=== PATIENT | female | born 1970 | race African-American/Black ===

== ENCOUNTER 2020-01-10 11:43 | Inpatient (IN) | payer OTHER, SELFPAY ==
[2020-01-10] VITALS (8 sets, daily range): BP systolic 137–177; BP diastolic 68–115; PULSE 91–101; RESP 20–26; TEMP 35.7–36.9; O2SAT 91–96; BMI 50.8
--- NOTE | ~2020-01-10 | US_ITS ---
EXAMINATION: US venous doppler LE EXAM DATE: 01/10/2020 14:20 INDICATION: Bilateral leg pain, swelling, elevated d-dimer. TECHNIQUE: Multiple grayscale, color flow and Doppler images of the lower extremity deep venous syste ms bilaterally were obtained and reviewed. Comparison is made to prior examination from 10/27/2018. FINDINGS: Right side: The right common femoral, femoral and profunda veins demonstrate normal color flow, respi ratory variation, augmentation and compressibility. Compressibility, color flow confirmed within the right popliteal, posterior tibial, peroneal, and greater saphenous veins. Left side: The left common femoral, femoral and profunda veins demonstrate normal color flow, respira tory variation, augmentation and compressibility. Compressibility, color flow confirmed within the l eft popliteal, posterior tibial, peroneal, and greater saphenous veins. IMPRESSION: 1. No lower extremity deep venous thrombosis bilaterally. Reviewed, dictated and finalized at location B.
--- NOTE | ~2020-01-10 | XR_ITS ---
EXAMINATION: XR chest 2V EXAM DATE: 01/10/2020 12:08 INDICATION: Shortness of breath, lower extremity edema. TECHNIQUE: Frontal and lateral projections of the chest obtained and reviewed. Comparison is made to prior examination from 09/23/2013. FINDINGS: Interval development of cardiomegaly, pulmonary vascular congestion. There may also be mil d pulmonary edema. No confluent consolidation, pneumothorax or pleural effusion suspected. There are no osseous abnormalities identified. IMPRESSION: Findings consistent with mild CHF exacerbation. Reviewed, dictated and finalized at location B.
--- NOTE | ~2020-01-10 | XR_ITS ---
EXAMINATION: XR chest 1V portable DATE: 01/14/2020 07:37 INDICATION: Congestive heart failure. Shortness of breath. TECHNIQUE: frontal view of the chest was obtained. COMPARISON: Chest radiograph and CT dated 01/10/2020 FINDINGS: Evaluation of fine pulmonary parenchymal detail particularly in the lower lung zones is limited by po rtable technique and patient body habitus. No focal airspace opacities, pulmonary edema, pleural effu camila or pneumothorax. Cardiomegaly. IMPRESSION: 1. No acute cardiopulmonary disease. Reviewed, dictated and finalized at location A.
--- NOTE | ~2020-01-10 | CT_ITS ---
EXAMINATION: CTA chest PE protocol EXAM DATE: 01/10/2020 13:52 INDICATION: Shortness of breath with elevated d-dimer. TECHNIQUE: Spiral CTA of the chest (pulmonary arteries) was performed with 100 cc Omnipaque 350 intr avenous contrast injection. Images were acquired during the pulmonary arterial phase. Coronal maxi mum intensity projection 3D-reconstructions were created by the technologist on dedicated workstation . Axial, coronal and sagittal reformatted images were reviewed. The dose-length product (DLP) for t his examination was 954.57 mGy-cm. The exposure was tailored according to patient size (auto mA exp osure control), and iterative reconstruction (ASIR) was used as additional dose reduction technique. Comparison is made to prior examination from 09/23/2013. FINDINGS: There are no pulmonary emboli in the 1st through 3rd order (central and interlobar) pulmon cb arteries. Some loss of attenuation in the segmental pulmonary arteries due to respiratory motion , but no intraluminal filling defects suspected. No thoracic aortic dissection. The lungs are jonathon r. There are no pleural or pericardial effusions. Tracheobronchial tree is patent. There is no mediastinal, hilar or axillary lymphadenopathy. There is no pneumothorax. Cardiomegaly. There is pulmonary vascular congestion. The main, central pulmonary arteries are dilated which can indicate elevated pulmonary arterial pressure, pulmonary arterial hypertension. No evidence of coronary arter ial calcification. Bilateral adrenal adenomas incompletely imaged. There is mild thoracic spondylos is without osteoblastic or osteolytic lesions identified. IMPRESSION: 1. Cardiomegaly, pulmonary vascular congestion. 2. No pulmonary emboli. Reviewed, dictated and finalized at location B.
--- NOTE | 2020-01-10 11:55 | ECG_ITS ---
Measurements Intervals [place] Rate: 96 P: 55 UT: 148 QRS: 121 QRSD: 89 T: 35 QT: 346 QTc: 438 Interpretive Statements SINUS RHYTHM RIGHT AXIS DEVIATION LEFT ATRIAL ENLARGEMENT CANNOT RULE OUT SEPTAL INFARCT, AGE INDETERMINATE BASELINE WANDER- I, II, AVR, AVL, AVF, V3-V6 ABNORMAL ECG Electronically Signed On 01-10-2020 13:31:56 CDT by Nicho Mccartney D.O.
--- NOTE | 2020-01-10 12:03 | PC.NURSE ---
patient to xray prior to blood being drawn
[2020-01-10 12:28] LABS: Basophils Percent Auto 0.3 % (0.2-1.2); Eosinophils Percent Auto 0.3 % (0-4.4); Hematocrit 53.6 % (37.0-47.0); Hemoglobin 16.7 g/dL (12.0-15.0); Immature Granulocyte Absolute 0.02 K/mm3 (0.00-0.031); Immature Granulocyte Percent A 0.3 % (0-0.5); Lymphocytes Absolute Auto 1.86 K/mm3 (0.9-3.2); Mean Corpuscular HGB Conc 31.2 g/dl (32-36); Mean Corpuscular Hemoglobin 28.9 pg (26-34); Mean Corpuscular Volume 92.9 fl (80-100); Mean Platelet Volume 9.9 fl (7.4-10.4); Monocytes Absolute Auto 0.4 K/mm3 (0.1-0.6); Monocytes Percent Auto 6.7 % (2.6-8.5); Neutrophils Absolute Auto 4.1 K/mm3 (1.3-6.7); Neutrophils Percent Auto 63.4 % (45.5-73.1); Nucleated Red Blood Cells Absolute Auto 0.1 K/mm3 (0.0-0.012); Nucleated Red Blood Cells Perc 1.1 % (0.0-0.2); Platelet Count Result 233 k/mm3 (150-375); Red Blood Count 5.77 M/mm3 (4.2-5.4); Red Cell Distribution Width 17.8 % (11.5-14.5); White Blood Count 6.4 K/mm3 (4.5-10.0)
[2020-01-10 12:39] LABS: Blood Urea Nitrogen 7 mg/dL (7-17); Calcium 8.6 mg/dL (8.4-10.2); Carbon Dioxide 36 mmol/L (22-30); Chloride 101 mmol/L (98-107); Estimated CRCL calculation 142 ml/min; Estimated Glomerular Filt Rate > 60; Glucose 105 mg/dL (65-105); Sodium 139 mmol/L (137-145)
[2020-01-10 12:49] LABS: NT Pro B Type Natriuretic Pept 1250 PG/ML (5-100)
[2020-01-10 13:04] LABS: Partial Thromboplastin Time 22.7 SECONDS (22.3-36.8); Prothrombin Time 13.2 Seconds (11.1-14.7)
--- NOTE | 2020-01-10 13:35 | PC.NURSE ---
pt to radiology
--- NOTE | 2020-01-10 13:50 | ED.GENADULT ---
HPI - General Adult General Chief complaint: Unspecified Stated complaint: Sent from PCP, Possible CHF Time Seen by Provider: 01/10/20 11:55 Source: patient Mode of arrival: ambulatory Limitations: no limitations History of Present Illness HPI narrative: This is a 49-year-old female that presents the emergency department for shortness of breath x3 months. Also reports increasing lower extremity edema. Shortness of breath is worsened with exertion. Reports she has history of sleep apnea. She is not on CPAP. She has had trouble with falling asleep often. Denies fever, cough, or chest pain. Related Data Home Medications Medication Instructions Recorded Confirmed Unable to Obtain Home Medications 01/10/20 01/10/20 Allergies Allergy/AdvReac Type Severity Reaction Status Date / Time No Known Allergies Allergy Unknown Verified 10/27/18 11:22 Review of Systems Review of Systems: Narrative: CONSTITUTIONAL: Denies fever CARDIOVASCULAR: Reports edema. Denies chest pain RESPIRATORY: Reports dyspnea. Denies cough All systems reviewed & are unremarkable except as noted in HPI and below PMFSH Past Medical History Medical History (Updated 01/10/20 @ 14:58 by Diane Mccartney PA-C) History of sleep apnea Surgical History Surgical History (Updated 01/10/20 @ 13:54 by Diane Mccartney PA-C) History of tonsillectomy History of tubal ligation Social History Social History (Updated 01/10/20 @ 13:54 by Diane Mccartney PA-C) Smoking status: Current every day smoker Gender identity (if verbalized by the patient): Female Exam Narrative: Exam Narrative: GENERAL: Well-appearing, obese, and in no acute distress. HEAD: Normocephalic, atraumatic. EYES: EOMI. NECK: Supple. No adenopathy or masses. CHEST: Clear to auscultation. No respiratory distress. Rales in the lower lobes. No wheezes or rhonchi HEART: Regular rate and rhythm. No murmur heard. Normal peripheral pulses. EXTREMITIES: Normal range of motion. 1+ pitting edema to the bilateral lower extremities SKIN: Warm, dry, no rash. NEURO: No focal deficits. Alert and oriented x3. PSYCH: Normal mood and affect Course Consultations Consultation #1: Spoke with hospitalist about patient and work-up accepts admission Date: 01/10/20 Time: 15:01 Vital Signs Vital signs: Vital Signs Temperature 96.2 F L 01/10/20 11:46 Pulse Rate 95 01/10/20 11:46 Respiratory Rate 26 H 01/10/20 11:46 Blood Pressure 177/115 H 01/10/20 11:46 Pulse Oximetry 92 01/10/20 11:46 Temperature 96.2 F L 01/10/20 11:46 Pulse Rate 101 H 01/10/20 14:55 Respiratory Rate 24 H 01/10/20 13:22 Blood Pressure 148/98 H 01/10/20 14:55 Pulse Oximetry 96 01/10/20 13:22 Medical Decision Making MDM Narrative Medical decision making narrative: Patient presents to the emergency department for shortness of breath and lower extremity edema. Laboratory and imaging findings consistent with mild CHF exacerbation. D-dimer was elevated so CTA of the chest and venous Doppler of the lower extremities was obtained that were without evidence of PE or DVT. Patient was mildly hypoxic in the upper 80s. Placed on 3 L nasal cannula with improvement. Patient will be admitted for CHF exacerbation with hypoxia. Spoke with hospitalist about patient and work-up who accepts admission Vital Signs Vital Signs: Vital Signs Temperature 96.2 F L 01/10/20 11:46 Pulse Rate 95 01/10/20 11:46 Respiratory Rate 26 H 01/10/20 11:46 Blood Pressure 177/115 H 01/10/20 11:46 Pulse Oximetry 92 01/10/20 11:46 Temperature 96.2 F L 01/10/20 11:46 Pulse Rate 101 H 01/10/20 14:55 Respiratory Rate 24 H 01/10/20 13:22 Blood Pressure 148/98 H 01/10/20 14:55 Pulse Oximetry 96 01/10/20 13:22 Lab Data Lab results reviewed: Yes I reviewed the patient's lab results. Result diagrams: 01/10/20 12:18 01/10/20 12:18 Labs: Lab Results 01/10/2012/13
[2020-01-10] MEDS: FUROSEMIDE INJ 40 MG/4 ML VIAL IV PUSH ×2 (14:40→21:01)
--- NOTE | 2020-01-10 16:14 | PC.NURSE ---
This patient, Watson Catalan, was admitted to [facility] Surg Room 327-01. Patient/family oriented to hospital policies and general routines including ID bracelet, bed and alarms, visiting hours, pain management, procedures, bathroom and other care routines, personal items, smoking policy, room service/diet, and visiting hours. Valuables list has been completed. Information on how to activate the Rapid Response Team has been discussed. Patient/Family are encouraged to report perceived risks to care and to ask questions if they do not understand what they are told or what they should do.
--- NOTE | 2020-01-10 22:45 | PM.IMHP ---
H&P: HPI History of Present Illness Chief complaint: Shortness of breath and weight gain. Narrative: Watson Catalan is a 49-year-old female with history of obstructive sleep apnea which has NOT been on treated for quite some time who presented to the emergency department earlier today with complaints of shortness of breath and a 50 pound weight gain in the last 2 months. Her last sleep study was approximately 20 years ago and she has not worn her CPAP for many years for unclear reasons. She is to the point now where she is falling asleep during the day, during conversations, and while driving. She snores loudly and has had witnessed apneic episodes. She also notes progressive dyspnea on exertion and ever increasing lower extremity edema as well as orthopnea. She has not had exertion chest pain or pleuritic pain. She denies calf pain and tenderness. No history of venous thromboembolism. No nausea, vomiting, or sweats. Review of Systems Review of Systems: Narrative: Twelve systems were reviewed with pertinent positives and negatives as per HPI. No fever, chills, or sweats. No recent cold or flu symptoms. She denies recent travel and sick contacts. No cough. No diarrhea. No dysuria. Except as documented, all other systems were reviewed and are negative. [facility] Past Medical History Medical History (Updated 01/10/20 @ 23:13 by Analilia Winters PA-C) Morbid obesity Obstructive sleep apnea She has not worn her CPAP for many years. Surgical History Surgical History History of tonsillectomy History of tubal ligation Family History Family History Grandparent Mental and behavioral problem Grandparent Diabetes mellitus Father Diabetes mellitus Social History Social History (Updated 01/10/20 @ 23:11 by Analilia Winters PA-C) Social History: The patient lives in [place] with her children. She used to work at [employer] however it has been close since the COVID [id number] order. She smokes about half pack of cigarettes per day. She occasionally uses marijuana. No significant alcohol use. She designates her daughter, Tamie [place], as her surrogate decision maker and she wishes to be a full code. Smoking packs per day: 0.5 Smoking cigarettes per day: 10.0 Years smoked: 20 Smoking pack-years: 10.00 Smoking status: Current every day smoker Tobacco type: cigarettes Alcohol intake: never Substance use: current Substance use type: marijuana Gender identity (if verbalized by the patient): Female Spiritual care concerns: No Meds Home Medications and Allergies Home Medications Medication Instructions Recorded Confirmed Type B-complex with vitamin C 1 tablet PO DAILY 01/10/20 01/10/20 History Warren-Plex Iron 85 mg PO DAILY 01/10/20 01/10/20 History Vitamin D3 500 mg PO DAILY 01/10/20 01/10/20 History Allergies Allergy/AdvReac Type Severity Reaction Status Date / Time No Known Allergies Allergy Unknown Verified 10/27/18 11:22 Vital Signs Vital Signs - 24 hr 01/10/20 11:46 01/10/20 13:22 01/10/20 14:55 Temperature 96.2 F L Pulse Rate 95 91 101 H Respiratory Rate 26 H 24 H Blood Pressure 177/115 H 137/92 H 148/98 H Pulse Oximetry 92 96 01/10/20 16:03 01/10/20 17:00 01/10/20 22:00 Temperature 97.9 F 98.5 F Pulse Rate 96 94 92 Respiratory Rate 20 20 Blood Pressure 144/82 H 138/68 Pulse Oximetry 91 92 Exam Narrative: Exam Narrative: General: Morbidly obese female in the semi-Dhillon position in bed. She falls asleep during mid-sentence and I have to wake her frequently throughout the interview. She has periods of apnea while sleeping. HEENT: PERRL, EOMI. Conjunctiva mildly injected. Oral mucosa moist. Oropharynx is crowded and not visualized. Neck: Exam difficult due to neck circumference. Respiratory: Lung sounds are di
[2020-01-10 23:30] LABS: Alveolar/Arterial O2 Gradient 54.1 mmHg; Carboxyhemoglobin 4.4 % THb (0-2.0); Fractional Inspired Oxygen 28 %; HCO3 ABG 35.7 mEq/l (22.0-26.0); Methemoglobin ABG 0.4 %THb (0-1.5); Oxygen Content ABG 20.6 %vol (16.0-22.0); Oxyhemoglobin 80.7 % THb (90.0-100.0); PO2 FiO2 Ratio Arterial Blood 1.89 %; Reduced Hemoglobin 14.5 %THb (0-5.0); Total Hemoglobin 18.2 g/dL (12.0-18.0)
[2020-01-10 23:34] LABS: PCO2 ABG 78.4 mmHg (35.0-45.0); pH ABG 7.276 (7.350-7.450)
[2020-01-10 23:36] LABS: Device NASAL CANNULA; Modified Allen's Test Pass; Oxygen Saturation ABG 81.6 % (95.0-100.0); Site Drawn RIGHT RADIAL
[2020-01-11] VITALS (21 sets, daily range): BP systolic 117–143; BP diastolic 57–100; PULSE 66–100; RESP 18–28; TEMP 35.7–36.6; O2SAT 92–99
[2020-01-11 02:14] LABS: Alveolar/Arterial O2 Gradient 117.3 mmHg; Base Excess ABG 5.9 mEq/l (+/-2.0); Fractional Inspired Oxygen 40 %; HCO3 ABG 35.4 mEq/l (22.0-26.0); Oxygen Content ABG 22.8 %vol (16.0-22.0); Oxygen Saturation ABG 95.5 % (95.0-100.0); Oxyhemoglobin 91.2 % THb (90.0-100.0); PO2 ABG 86.4 mmHg (80.0-100.0); PO2 FiO2 Ratio Arterial Blood 2.16 %; Total Hemoglobin 17.8 g/dL (12.0-18.0); pH ABG 7.316 (7.350-7.450)
[2020-01-11 02:15] LABS: Device NON-INVASIVE VENT; Modified Allen's Test Pass; PCO2 ABG 70.9 mmHg (35.0-45.0); Site Drawn RIGHT RADIAL
[2020-01-11 02:16] LABS: Non-Invasive Expiratory Pressure 6 CMH2O; Non-Invasive Inspiratory Pressure 16 CMH2O; Non-Invasive Vent Rate 18 /MIN
--- NOTE | 2020-01-11 03:05 | PC.NURSE ---
This patient, Watson Catalan, was transferred to IMU on 01/11/20 at 0145. Personal belongings sent with patient. Report given to Gloria HAN. Appropriate documentation sent with patient.
--- NOTE | 2020-01-11 03:08 | PC.NURSE ---
This patient, Watson Catalan, was received from [[address] [place] [address] ] on 01/11/20 at 0145. REPORT RECEIVED FROM RAHEEL HAN. Personal belongings list checked and signed. Patient/family oriented to unit policies and routines
[2020-01-11 04:47] LABS: Hemoglobin 16.7 g/dL (12.0-15.0); Mean Corpuscular HGB Conc 31.5 g/dl (32-36); Mean Corpuscular Hemoglobin 29.3 pg (26-34); Mean Platelet Volume 10.1 fl (7.4-10.4); Platelet Count Result 218 k/mm3 (150-375); Red Cell Distribution Width 17.5 % (11.5-14.5); White Blood Count 5.7 K/mm3 (4.5-10.0)
[2020-01-11 05:01] LABS: Alanine Aminotransferase 27 U/L (4-35); Albumin Level 3.5 g/dL (3.5-5.1); Alkaline Phosphatase 57 U/L (38-126); Aspartate Amino Transferase 24 U/L (14-36); Bilirubin,Total 0.6 mg/dL (0.2-1.3); Blood Urea Nitrogen 8 mg/dL (7-17); Calcium 8.2 mg/dL (8.4-10.2); Carbon Dioxide 39 mmol/L (22-30); Chloride 97 mmol/L (98-107); Cholesterol 139 mg/dL (0-200); Estimated CRCL calculation 144 ml/min; Estimated Glomerular Filt Rate > 60; Glucose 125 mg/dL (65-105); HDL Direct 23 mg/dL; Magnesium 1.8 mg/dL (1.6-2.3); Partial Thromboplastin Time 23.4 SECONDS (22.3-36.8); Potassium 3.9 mmol/L (3.4-5.0); Prothrombin Time 12.8 Seconds (11.1-14.7); Sodium 140 mmol/L (137-145); Triglycerides 96 mg/dL (<150)
[2020-01-11 05:12] LABS: LDL Cholesterol Direct 96 mg/dL
[2020-01-11] MEDS: VITAMIN B COMPLEX/VIT C CAPSULE 1 EACH PO (12:11)
[2020-01-11] MEDS: FUROSEMIDE INJ 40 MG/4 ML VIAL IV PUSH ×2 (12:11→20:46)
--- NOTE | 2020-01-11 14:43 | PM.IMPN ---
Progress Note: A&P Assessment and Plan (1) Acute respiratory failure with hypoxia: Code(s): J96.01 - Acute respiratory failure with hypoxia Status: Acute Assessment and Plan: Secondary to obesity hypoventilation syndrome, untreated obstructive sleep apnea, and congestive heart failure exacerbation. New onset chf Echo ordered Continue bipap today ABg still shows high pco2 (2) Acute exacerbation of congestive heart failure: Code(s): I50.9 - Heart failure, unspecified Status: Acute Assessment and Plan: Diurese with close monitoring of volume status and I/O. Echocardiogram in a.m. (3) Morbid obesity: Code(s): E66.01 - Morbid (severe) obesity due to excess calories Status: Acute Assessment and Plan: Dietary consult (4) Elevated blood pressure reading: Code(s): R03.0 - Elevated blood-pressure reading, without diagnosis of hypertension Status: Acute Assessment and Plan: Blood pressure has improved. Subjective Date/time seen: 01/11/20 14:43 Objective Data Vital Signs Vital Signs: Vital Signs - 24 hr 01/10/20 14:55 01/10/20 16:03 01/10/20 17:00 Temperature 36.6 C Pulse Rate 101 H 96 94 Respiratory Rate 20 Blood Pressure 148/98 H 144/82 H Pulse Oximetry 91 01/10/20 20:00 01/10/20 22:00 01/10/20 23:45 Temperature 36.9 C Pulse Rate 91 92 100 Respiratory Rate 20 22 H Blood Pressure 138/68 Pulse Oximetry 92 94 01/11/20 00:00 01/11/20 01:56 01/11/20 02:00 Temperature 36.6 C Pulse Rate 100 66 90 Respiratory Rate 22 H 21 H Blood Pressure 117/74 Pulse Oximetry 94 93 01/11/20 04:00 01/11/20 04:42 01/11/20 06:00 Temperature 36.6 C Pulse Rate 89 86 98 Respiratory Rate 18 Blood Pressure 143/88 H Pulse Oximetry 99 01/11/20 06:29 01/11/20 08:00 01/11/20 09:07 Temperature 35.8 C L Pulse Rate 90 86 82 Respiratory Rate 18 24 H 19 Blood Pressure 143/100 H Pulse Oximetry 94 95 93 01/11/20 12:00 Temperature 35.8 C L Pulse Rate 83 Respiratory Rate 18 Blood Pressure 137/70 Pulse Oximetry 93 Intake/Output Intake/Output: Intake & Output 01/08/20 01/09/20 01/10/20 01/11/20 23:59 23:59 23:59 23:59 Intake Total 250 50 Output Total 500 1100 Balance -250 -1050 Meds/Results Medications: Active Medications Generic Name Dose Route Start Last Admin Trade Name Meredith PRN Reason Stop Dose Admin Furosemide 40 mg 01/10/20 21:00 01/11/20 12:11 Lasix Inj IV PUSH 40 mg Q12HR DINORAH Administration Non-Formulary Medication 85 mg 01/11/20 09:00 Warren-Plex Iron PO 02/10/20 09:01 DAILY [facility] Non-Formulary Medication 500 mg 01/11/20 09:00 Vitamin D3 PO 02/10/20 09:01 DAILY [facility] Vitamin B Complex/Vitamin C 1 each 01/11/20 09:00 01/11/20 12:11 [place] W/C PO 1 each DAILY DINORAH Administration Radiology Results: ITS Impressions Chest X-Ray 01/10/20 12:11 IMPRESSION: Findings consistent with mild CHF exacerbation. Chest CTA 01/10/20 13:57 IMPRESSION: 1. Cardiomegaly, pulmonary vascular congestion. 2. No pulmonary emboli. Venous Doppler Study 01/10/20 14:25 IMPRESSION: 1. No lower extremity deep venous thrombosis bilaterally. Labs Labs: Laboratory Results - last 24 hr 01/10/20 01/11/20 01/11/20 23:19 01:50 04:17 WBC 5.7 RBC 5.70 H Hgb 16.7 H Hct 53.0 H MCV 93.0 MCH 29.3 MCHC 31.5 L RDW 17.5 H Plt Count 218 MPV 10.1 PT INR APTT Puncture Site Right radial Right radial ABG pH 7.276 L* 7.316 L ABG pCO2 78.4 H* 70.9 H* ABG pO2 53.0 L 86.4 ABG PO2/FiO2 Ratio 1.89 2.16 ABG HCO3 35.7 H 35.4 H ABG O2 Saturation 81.6 L* 95.5 ABG O2 Content 20.6 22.8 H ABG Base Excess 5.
[2020-01-11 17:29] LABS: Alveolar/Arterial O2 Gradient 107.5 mmHg; Base Excess ABG 10.1 mEq/l (+/-2.0); Fractional Inspired Oxygen 45 %; HCO3 ABG 39.8 mEq/l (22.0-26.0); Oxygen Content ABG 24.6 %vol (16.0-22.0); Oxygen Saturation ABG 98.4 % (95.0-100.0); Oxyhemoglobin 95.7 % THb (90.0-100.0); PO2 FiO2 Ratio Arterial Blood 2.91 %; Total Hemoglobin 18.2 g/dL (12.0-18.0); pH ABG 7.358 (7.350-7.450)
[2020-01-11 17:31] LABS: Device NON-INVASIVE VENT; Modified Allen's Test Pass; PCO2 ABG 72.4 mmHg (35.0-45.0); Site Drawn LEFT RADIAL
[2020-01-11 17:32] LABS: Non-Invasive Expiratory Pressure 6 CMH2O; Non-Invasive Inspiratory Pressure 16 CMH2O; Non-Invasive Vent Rate 18 /MIN
--- NOTE | 2020-01-11 23:17 | ECHO_ITS ---
Patient Info Name: Watson Catalan Age: 49 years : 1970 Gender: Female Ht: 66 in Wt: 315 lbs BSA: 2.66 m2 HR: 85 bpm BP: 143 / 100 mmHg Heart Rhythm: Sinus Rhythm Technical Quality: Fair Exam Date: 01/11/2020 10:04 AM Exam Location: [facility] Patient Status: Inpatient Admit Date: 01/11/2020 Staff Ordering Physician: Analilia Winters PA-C Playroom Attendant: Liu Thomas RDCS Attending Provider: Don Wall MD Referring Physician: Vianey MARQUEZ; Exam Type: CA echo doppler color flow Study Info Indications I50.9 - Heart failure, unspecified Complete two-dimensional, color flow and Doppler transthoracic echocardiogram is performed. History/Risk Factors Respiratory failure w/ hypoxia; CHF exacerbation, SOB/MARAVILLA, edema, orthopnea, HTN. Summary 1. Normal LV size, mild LVH, normal LV systolic function, EF 65-70%. Normal diastolic function. Moderate RV enlargement with hypokinesis. Moderate right atrial enlargement. Normal structure of the valves, mild TR, moderate pulmonary hypertension, RVSP 52 mmHg. Dilated IVC. Left Ventricle Left ventricular chamber dimension is normal. Left ventricular systolic function is normal, estimated at 65-70%. There is mildly increased left ventricular wall thickness. Left ventricular septal wall motion is normal. The left ventricular diastolic function is normal. Right Ventricle Right ventricular chamber dimension is moderately enlarged. Right ventricular systolic function is reduced. Left Atria Left atrial chamber dimension is not well visualized. Right Atria Right atrial chamber dimension is moderately enlarged. Aortic Valve The aortic valve is trileaflet. There is no aortic valve sclerosis. There is no aortic valve stenosis. There is no aortic valve regurgitation. Pulmonic Valve The pulmonic valve is normal. There is no pulmonic valve stenosis. There is no pulmonic regurgitation. Mitral Valve The mitral valve has normal leaflets. There is no mitral valve stenosis. There is no mitral valve regurgitation. Tricuspid Valve The tricuspid valve leaflets are normal. There is mild tricuspid valve regurgitation. Moderate pulmonary hypertension, estimated pulmonary arterial systolic pressure is 52 mmHg. Pericardium/Pleural The pericardium appears normal. There is no pericardial effusion. Inferior Vena Cava Dilated inferior vena cava with <50% collapse upon inspiration consistent with elevated right atrial pressure, 15 mmHg. Aorta The aortic root size at the sinus of Valsalva is normal. The prox ascending aorta size is normal. Left Ventricular Outflow Tract Name Value Normal LVOT 2D LVOT Diameter 2.2 cm LVOT Doppler LVOT Peak Gradient 3 mmHg LVOT Mean Gradient 2 mmHg LVOT VTI 16 cm LVOT VTI/AV VTI Ratio 0.7 LVOT Stroke Volume 58 ml LVOT CO 4.7 l/min LVOT CI 1.8 l/min/m2 Mitral V
[2020-01-12] VITALS (16 sets, daily range): BP systolic 116–143; BP diastolic 71–87; PULSE 78–89; RESP 16–22; TEMP 36.6–37.3; O2SAT 91–99
[2020-01-12 08:36] LABS: Basophils Percent Auto 0.2 % (0.2-1.2); Eosinophils Percent Auto 0.5 % (0-4.4); Hematocrit 53.3 % (37.0-47.0); Hemoglobin 16.5 g/dL (12.0-15.0); Immature Granulocyte Absolute 0.01 K/mm3 (0.00-0.031); Immature Granulocyte Percent A 0.2 % (0-0.5); Lymphocytes Absolute Auto 1.44 K/mm3 (0.9-3.2); Mean Corpuscular Hemoglobin 28.8 pg (26-34); Mean Platelet Volume 9.8 fl (7.4-10.4); Monocytes Absolute Auto 0.5 K/mm3 (0.1-0.6); Monocytes Percent Auto 7.7 % (2.6-8.5); Neutrophils Absolute Auto 4.3 K/mm3 (1.3-6.7); Neutrophils Percent Auto 68.4 % (45.5-73.1); Nucleated Red Blood Cells Perc 0.5 % (0.0-0.2); Platelet Count Result 207 k/mm3 (150-375); Red Blood Count 5.73 M/mm3 (4.2-5.4); Red Cell Distribution Width 16.7 % (11.5-14.5); White Blood Count 6.3 K/mm3 (4.5-10.0)
[2020-01-12 08:59] LABS: Alanine Aminotransferase 23 U/L (4-35); Albumin Level 3.4 g/dL (3.5-5.1); Alkaline Phosphatase 54 U/L (38-126); Aspartate Amino Transferase 23 U/L (14-36); Bilirubin,Total 0.5 mg/dL (0.2-1.3); Blood Urea Nitrogen 10 mg/dL (7-17); Calcium 8.6 mg/dL (8.4-10.2); Carbon Dioxide > 40 mmol/L (22-30); Chloride 94 mmol/L (98-107); Estimated CRCL calculation 144 ml/min; Estimated Glomerular Filt Rate > 60; Glucose 114 mg/dL (65-105); Potassium 4.3 mmol/L (3.4-5.0); Sodium 137 mmol/L (137-145)
[2020-01-12 09:11] LABS: Iron 72 ug/dL (37-170)
[2020-01-12 09:22] LABS: Percent Iron Saturation 19 % (20-50)
[2020-01-12] MEDS: FERROUS SULFATE 324 MG TABLET PO (09:53)
[2020-01-12] MEDS: CHOLECALCIFEROL 400 UNITS TABLET (VIT D) PO (09:54)
[2020-01-12] MEDS: FUROSEMIDE INJ 40 MG/4 ML VIAL IV PUSH (09:54)
[2020-01-12] MEDS: VITAMIN B COMPLEX/VIT C CAPSULE 1 EACH PO (09:54)
[2020-01-12 10:11] LABS: Vitamin B12 > 1000.0 pg/mL (239-931)
[2020-01-12 10:19] LABS: Alveolar/Arterial O2 Gradient 94.5 mmHg; Base Excess ABG 7.9 mEq/l (+/-2.0); Fractional Inspired Oxygen 36 %; HCO3 ABG 38.2 mEq/l (22.0-26.0); Oxygen Content ABG 22.8 %vol (16.0-22.0); Oxygen Saturation ABG 92.6 % (95.0-100.0); Oxyhemoglobin 91.9 % THb (90.0-100.0); PO2 ABG 72.6 mmHg (80.0-100.0); PO2 FiO2 Ratio Arterial Blood 2.02 %; Total Hemoglobin 17.7 g/dL (12.0-18.0); pH ABG 7.312 (7.350-7.450)
[2020-01-12 10:20] LABS: Device NASAL CANNULA; Modified Allen's Test Pass; PCO2 ABG 77.2 mmHg (35.0-45.0); Site Drawn LEFT RADIAL
--- NOTE | 2020-01-12 11:30 | PM.IMPN ---
Progress Note: A&P Assessment and Plan (1) Acute respiratory failure with hypoxia: Code(s): J96.01 - Acute respiratory failure with hypoxia Status: Acute Assessment and Plan: Secondary to obesity hypoventilation syndrome, untreated obstructive sleep apnea, and congestive heart failure exacerbation. New onset chf Echo ordered shows pulmonary HTN, EF 65% Off bipap on 2 liters of oxygen Pt will benefit from sleep study and CPAP Pumology consulted for evaluation for sleep apnea (2) Acute exacerbation of congestive heart failure: Code(s): I50.9 - Heart failure, unspecified Status: Acute Assessment and Plan: Diurese with close monitoring of volume status and I/O. (3) Morbid obesity: Code(s): E66.01 - Morbid (severe) obesity due to excess calories Status: Acute Assessment and Plan: Dietary consult (4) Elevated blood pressure reading: Code(s): R03.0 - Elevated blood-pressure reading, without diagnosis of hypertension Status: Acute Assessment and Plan: Blood pressure has improved. Subjective Date/time seen: 01/12/20 11:30 Interval history: Watson Catalan is a 49-year-old female with history of obstructive sleep apnea which has NOT been on treated for quite some time who presented to the emergency department earlier today with complaints of shortness of breath and a 50 pound weight gain in the last 2 months. Pt appears to have cardiomegaly and pulmonary edema on cxr. Echo shows pulmonary HTN. Pt will benefit from pulmology consult. Continue to diuresis for now. Review of Systems Review of Systems: All systems reviewed & are unremarkable except as noted in HPI and below Cardiovascular: Cardiovascular: Denies chest pain and Reports leg edema Respiratory: Respiratory: Reports chest congestion, Reports cough and Reports dyspnea Comments: White phlegm Exam Narrative: Exam Narrative: General: Morbidly obese female HEENT: PERRL, EOMI Neck: Thicker neck circumference. Respiratory: Lung sounds are decreased Gastrointestinal: Abdomen is soft, morbidly obese and nontender with positive bowel sounds. Skin: Warm and dry. Extremities: No cyanosis or clubbing. 2+ pitting edema of lower extremities Neurological: Alert and oriented x4. Cranial nerves 2-12 are grossly intact. Psychiatric: Somnolent. Objective Data Vital Signs Vital Signs: Vital Signs - 24 hr 01/11/20 12:00 01/11/20 12:01 01/11/20 14:00 Temperature 35.8 C L Pulse Rate 90 86 Respiratory Rate 18 Blood Pressure 137/70 Pulse Oximetry 93 93 01/11/20 16:00 01/11/20 17:33 01/11/20 18:00 Temperature 35.7 C L Pulse Rate 85 88 80 Respiratory Rate 18 27 H Blood Pressure 134/80 Pulse Oximetry 95 98 01/11/20 19:43 01/11/20 20:00 01/11/20 22:00 Temperature 36.5 C Pulse Rate 89 88 82 Respiratory Rate 18 18 Blood Pressure 123/57 L Pulse Oximetry 92 95 01/11/20 23:10 01/11/20 23:42 01/12/20 00:00 Temperature 36.6 C Pulse Rate 83 78 78 Respiratory Rate 28 H 22 H Blood Pressure 126/85 Pulse Oximetry 97 97 01/12/20 02:00 01/12/20 02:29 01/12/20 04:00 Temperature 36.7 C Pulse Rate 89 86 87 Respiratory Rate 22 H 20 Blood Pressure 135/87 Pulse Oximetry 91 99 01/12/20 06:00 01/12/20 08:00 01/12/20 08:15 Temperature 37.3 C Pulse Rate 85 88 85 Respiratory Rate 22 H 18 Blood Pressure 119/75 Pulse Oximetry 98 92 Intake/Output Intake/Output: Intake & Output 01/09/20 01/10/20 01/11/20 01/12/20 23:59 23:59 23:59 23:59 Intake Total 250 530 690 Output Total 500 1800 1999 Balance -653 -0285 -2406 Meds/Results Medications: Active Medications Generic Name Dose Route Start Last Admin Trade Name Freq PRN Reason Stop Dose Admin Eren
--- NOTE | 2020-01-12 13:27 | PC.NURSE ---
Report called to Claire HAN on 2nd medical. Patient to move to 250.
--- NOTE | 2020-01-12 15:02 | PC.NURSE ---
Transfer from IMU on today at 1500. Instructed to call for assistance as needed call light in reach.
--- NOTE | 2020-01-12 15:11 | PC.NURSE ---
This patient, Watson Catalan, was transferred to [[address] [place] [address]] on 01/12/20 at 1440. Personal belongings sent with patient. Belongings list checked and sent with patient. Belongings included $15 in one dollar bills that was counted with patient and this RN, cell phone, internet security specialist, wallet x2, purse, and clothes. Report given to [Pat RN]. Appropriate documentation sent with patient. Patient transferred via wheelchair and tolerated well.
--- NOTE | 2020-01-12 15:17 | PC.NURSE ---
Patient had $66 according to patient belonging list. Belongings list was signed on admission by patient. Patient stated that she gave her boyfriend $8. This RN counted $15 with patient after she claimed to give her boyfriend money. Patient denies sharing her money with family or friends despite having had three different visitors in the past two days. Multiple staff members spoke with patient regarding the missing money including, staff nurses, charge nurse, and director. Patient was offered the opportunity to lock up any and all belongings in hospital safe or otherwise encouraged to send belongings home with a trusted friend or family member to avoid any further discrepancies.
[2020-01-13] VITALS (8 sets, daily range): BP systolic 112–136; BP diastolic 72–97; PULSE 83–90; RESP 16–22; TEMP 35.8–37.2; O2SAT 90–99
[2020-01-13] MEDS: FUROSEMIDE INJ 40 MG/4 ML VIAL IV PUSH ×3 (00:04→21:26)
[2020-01-13 06:16] LABS: Blood Urea Nitrogen 12 mg/dL (7-17); Calcium 8.9 mg/dL (8.4-10.2); Carbon Dioxide > 40 mmol/L (22-30); Chloride 92 mmol/L (98-107); Estimated CRCL calculation 144 ml/min; Estimated Glomerular Filt Rate > 60; Glucose 111 mg/dL (65-105); Potassium 3.9 mmol/L (3.4-5.0); Sodium 135 mmol/L (137-145)
[2020-01-13] MEDS: CHOLECALCIFEROL 400 UNITS TABLET (VIT D) PO (09:48)
[2020-01-13] MEDS: FERROUS SULFATE 324 MG TABLET PO (09:48)
[2020-01-13] MEDS: VITAMIN B COMPLEX/VIT C CAPSULE 1 EACH PO (09:49)
--- NOTE | 2020-01-13 10:50 | PM.IMPN ---
Progress Note: A&P Assessment and Plan (1) Acute respiratory failure with hypoxia: Code(s): J96.01 - Acute respiratory failure with hypoxia Status: Resolved Assessment and Plan: Secondary to obesity hypoventilation syndrome, untreated obstructive sleep apnea, and congestive heart failure exacerbation. New onset chf Echo ordered shows pulmonary HTN, EF 65% Off bipap on 2 liters of oxygen Pt will benefit from sleep study and CPAP Pumology consulted for evaluation for sleep apnea and pulmonary htn hopeful dischrage sly am (2) Acute exacerbation of congestive heart failure: Code(s): I50.9 - Heart failure, unspecified Status: Acute Assessment and Plan: Diurese with close monitoring of volume status and I/O. Daily weights Order cxr sly am (3) Morbid obesity: Code(s): E66.01 - Morbid (severe) obesity due to excess calories Status: Acute Assessment and Plan: Dietary consult (4) Elevated blood pressure reading: Code(s): R03.0 - Elevated blood-pressure reading, without diagnosis of hypertension Status: Acute Assessment and Plan: Blood pressure has improved. Subjective Date/time seen: 01/13/20 10:50 Interval history: Watson Catalan is a 49-year-old female with history of obstructive sleep apnea which has NOT been on treated for quite some time who presented to the emergency department earlier today with complaints of shortness of breath and a 50 pound weight gain in the last 2 months. Pt appears to have cardiomegaly and pulmonary edema on cxr. Echo shows pulmonary HTN. Pt will benefit from pulmology consult. Continue to diuresis for now. Pt is wearing oxygen 2 liters via nasal cannulae. Bipap in room if needed. Pt feels better, better clear thinking, feels less swollen today. Review of Systems Review of Systems: All systems reviewed & are unremarkable except as noted in HPI and below Exam Narrative: Exam Narrative: General: Morbidly obese female, swollen face HEENT: PERRL, EOMI Neck: Thicker neck circumference. Respiratory: Lung sounds are decreased Gastrointestinal: Abdomen is soft, morbidly obese and nontender with positive bowel sounds. swollen abdomen. Skin: Warm and dry. Extremities: No cyanosis or clubbing. 2+ pitting edema of lower extremities Neurological: Alert and oriented x4. Cranial nerves 2-12 are grossly intact. Objective Data Vital Signs Vital Signs: Vital Signs - 24 hr 01/12/20 12:00 01/12/20 15:39 01/12/20 16:00 Temperature 37.1 C 36.6 C Pulse Rate 86 88 Respiratory Rate 22 H 18 Blood Pressure 140/78 116/87 Pulse Oximetry 93 93 94 01/12/20 18:00 01/12/20 20:00 01/12/20 21:22 Temperature 36.6 C Pulse Rate 86 85 Respiratory Rate 18 16 Blood Pressure 143/86 H Pulse Oximetry 94 95 92 01/12/20 22:00 01/12/20 23:35 01/13/20 02:00 Temperature 36.9 C 37.2 C Pulse Rate 85 86 87 Respiratory Rate 16 20 16 Blood Pressure 140/71 112/97 H Pulse Oximetry 95 95 90 01/13/20 04:00 01/13/20 07:34 Temperature 36.7 C Pulse Rate 84 Respiratory Rate 18 Blood Pressure 130/78 Pulse Oximetry 93 92 Intake/Output Intake/Output: Intake & Output 01/10/20 01/11/20 01/12/20 01/13/20 23:59 23:59 23:59 23:59 Intake Total 280 951 3537 580 Output Total 500 1800 2950 220 Balance -250 1270 -470 360 Meds/Results Medications: Active Medications Generic Name Dose Route Start Last Admin Trade Name Freq PRN Reason Stop Dose Admin Ferrous Sulfate 324 mg 01/12/20 09:00 01/13/20 09:48 Ferrous Sulfate PO 324 mg DAILY DINORAH Administration Furosemide 40 mg 01/10/20 21:00 01/13/20 09:09 Lasix Inj IV PUSH 40 mg Q12HR DINORAH Administration Vitamin B Complex/Vitamin C 1 each 01/11/20 09:00
--- NOTE | 2020-01-13 18:31 | PM.CNPUL ---
History of Present Illness History of Present Illness Consult date: 01/14/20 Requesting physician: Lay Calero MD Chief complaint: Shortness of breath and weight gain. Narrative: The patient was discharged before I was able to see her. She will call the office for an out-patient evaluatiion. [facility] Past Medical History Medical History (Updated 01/13/20 @ 10:54 by Lay Calero MD) Morbid obesity Obstructive sleep apnea She has not worn her CPAP for many years. Surgical History Surgical History History of tonsillectomy History of tubal ligation Family History Family History Grandparent Mental and behavioral problem Grandparent Diabetes mellitus Father Diabetes mellitus Social History Social History (Updated 01/10/20 @ 23:11 by Analilia Winters PA-C) Social History: The patient lives in [place] with her children. She used to work at [employer] however it has been close since the [employer] [id number] order. She smokes about half pack of cigarettes per day. She occasionally uses marijuana. No significant alcohol use. She designates her daughter, Tamie Birmingham, as her surrogate decision maker and she wishes to be a full code. Smoking packs per day: 0.5 Smoking cigarettes per day: 10.0 Years smoked: 20 Smoking pack-years: 10.00 Smoking status: Current every day smoker Tobacco type: cigarettes Alcohol intake: never Substance use: current Substance use type: marijuana Gender identity (if verbalized by the patient): Female Spiritual care concerns: No Meds Home Medications and Allergies Home Medications Medication Instructions Recorded Confirmed Type B-complex with vitamin C 1 tablet PO DAILY 01/10/20 01/10/20 History Warren-Plex Iron 85 mg PO DAILY 01/10/20 01/10/20 History Vitamin D3 500 mg PO DAILY 01/10/20 01/10/20 History furosemide [Lasix] 40 mg PO DAILY #30 tablet 01/14/20 Rx Allergies Allergy/AdvReac Type Severity Reaction Status Date / Time No Known Allergies Allergy Unknown Verified 10/27/18 11:22 Vital Signs Vital Signs - 24 hr 01/12/20 20:00 01/12/20 21:22 01/12/20 22:00 Temperature 36.9 C Pulse Rate 85 85 Respiratory Rate 16 16 Blood Pressure 140/71 Pulse Oximetry 95 92 95 01/12/20 23:35 01/13/20 02:00 01/13/20 04:00 Temperature 37.2 C 36.7 C Pulse Rate 86 87 84 Respiratory Rate 20 16 18 Blood Pressure 112/97 H 130/78 Pulse Oximetry 95 90 93 01/13/20 07:34 01/13/20 10:00 01/13/20 14:15 Temperature 36.0 C L 36.0 C L Pulse Rate 83 90 Respiratory Rate 18 16 Blood Pressure 121/72 136/80 Pulse Oximetry 92 96 99 01/13/20 16:00 Temperature 35.8 C L Pulse Rate 88 Respiratory Rate 18 Blood Pressure 118/78 Pulse Oximetry 97 Results Laboratory Findings CBC and BMP: 01/12/20 08:19 01/14/20 05:58 ABG, PT/INR, D-dimer: ABG ABG pH 7.312 (7.350-7.450) L 01/12/20 10:10 ABG pCO2 77.2 mmHg (35.0-45.0) H* 01/12/20 10:10 ABG pO2 72.6 mmHg (80.0-100.0) L 01/12/20 10:10 ABG O2 Saturation 92.6 % (95.0-100.0) L 01/12/20 10:10 PT/INR, D-dimer PT 12.8 Seconds (11.1-14.7) 01/11/20 04:17 INR 1.0 01/11/20 04:17 D-Dimer 1.10 ug/mL (<0.48) H 01/10/20 12:18 Abnormal lab findings: Abnormal Labs 01/10/20 01/10/20 01/10/20 12:18 12:18 12:18 RBC 5.77 H Hgb 16.7 H Hct 53.6 H MCHC 31.2 L RDW 17.8 H Absolute Nucleated RBC 0.1 H Nucleated RBC % 1.1 H D-Dimer 1.10 H ABG pH ABG pCO2 ABG pO2 ABG HCO3 ABG O2 Saturation ABG O2 Content Oxyhemoglobin Carboxyhemoglobin Reduced Hemoglobin Total Hemoglobin Sodium Chloride Carbon Dioxide 36 H Creatinine 0.60 L Glucose Calcium % Saturation NT-Pro-B Natriuret Pep 1250 H Albumin Vitami
[2020-01-14] VITALS: BP 118/83; PULSE 89; RESP 20; TEMP 36.6; O2SAT 95
[2020-01-14 01:40] VITALS: PULSE 92; RESP 23; O2SAT 95
[2020-01-14 04:00] VITALS: BP 110/64; PULSE 88; RESP 20; TEMP 37.2; O2SAT 92
[2020-01-14 06:34] LABS: Potassium 4.1 mmol/L (3.4-5.0)
[2020-01-14 07:07] LABS: Blood Urea Nitrogen 14 mg/dL (7-17); Calcium 9.1 mg/dL (8.4-10.2); Carbon Dioxide > 40 mmol/L (22-30); Chloride 94 mmol/L (98-107); Estimated CRCL calculation 124 ml/min; Estimated Glomerular Filt Rate > 60; Glucose 125 mg/dL (65-105); Sodium 136 mmol/L (137-145)
--- NOTE | 2020-01-14 08:34 | PM.DS ---
DS: Admitting Diagnosis Admitting Diagnosis Admitting Diagnosis: Acute respiratory failure with hypoxia DS: Discharge Diagnosis Discharge Diagnosis (1) Acute respiratory failure with hypoxia: Code(s): J96.01 - Acute respiratory failure with hypoxia Status: Resolved Assessment and Plan: Secondary to obesity hypoventilation syndrome, untreated obstructive sleep apnea, and congestive heart failure exacerbation. New onset chf Echo ordered shows pulmonary HTN, EF 65% Off bipap on 2 liters of oxygen Pt will benefit from sleep study and CPAP Pumology consulted for evaluation for sleep apnea and pulmonary htn Pt wants to go home I have continue lasix 40 mg po qdaily at home and adviced her to go for sleep studies and have CPAP set up through pulmology. (2) Acute exacerbation of congestive heart failure: Code(s): I50.9 - Heart failure, unspecified Status: Acute Assessment and Plan: Diurese with close monitoring of volume status and I/O. Recent cxr is NL. (3) Morbid obesity: Code(s): E66.01 - Morbid (severe) obesity due to excess calories Status: Acute Assessment and Plan: Dietary consult (4) Elevated blood pressure reading: Code(s): R03.0 - Elevated blood-pressure reading, without diagnosis of hypertension Status: Acute Assessment and Plan: Blood pressure has improved. DS: Summary Time Spent with Patient Time attestation: Total time spent providing and/or coordinating discharge services:40 minutes on day of discharge Exam Narrative: Exam Narrative: General: Morbidly obese female, face less swollen HEENT: PERRL, EOMI Neck: Thicker neck circumference. Respiratory: Lung sounds are decreased Gastrointestinal: Abdomen is soft, morbidly obese and nontender with positive bowel sounds Skin: Warm and dry. Extremities: No cyanosis or clubbing. 2+ pitting edema of lower extremities Neurological: Alert and oriented x4. Cranial nerves 2-12 are grossly intact. DS: Data Data Completed and Pending Labs on day of discharge: Labs from last 24 hours 01/14/20 05:58 Sodium 136 L Potassium 4.1 Chloride 94 L Carbon Dioxide > 40 H BUN 14 Creatinine 0.70 Estim Creat Clear Calc 124 Estimated GFR > 60 Glucose 125 H Calcium 9.1 Discharge Plan Discharge Attending physician on discharge: Lay Calero Consulting providers: Diane Mccartney ; Renita Beltran Discharging Clinician: Lay Calero Anticipated Discharge Date/Time: 01/14/20 08:30 Patient Disposition: Home, Self-Care Activity: as tolerated Diet: heart healthy and low fat Discharge Instructions: Pt will need to follow with pulmology clinic for sleep studies and cPAP machine Patient Instructions: Antibiotic Form, Heart Failure (DC), Sleep Apnea (DC) Stand Alone Forms: General Discharge Information Follow-up/Referrals: ChristianNika NP [Primary Care Provider] - Renita Beltran MD [Physician] - Discharge Medications: New furosemide [Lasix] 40 mg tablet 40 mg PO DAILY Qty: 30 RF: 0 Continued B-complex with vitamin C Tablet 1 tablet PO DAILY RF: 0 Warren-Plex Iron 85 mg PO DAILY RF: 0 Vitamin D3 500 mg PO DAILY RF: 0 Date of admission: 01/11/20 09:32 Primary Care Provider: Rhona,Nika Weller Admitting Provider: Don Wall Discharge Date/Time: 01/14/20 10:30 Attending physician on admission: Don Wall Condition: Stable
[2020-01-14] MEDS: CHOLECALCIFEROL 400 UNITS TABLET (VIT D) PO (09:33)
[2020-01-14] MEDS: FUROSEMIDE INJ 40 MG/4 ML VIAL IV PUSH (09:34)
[2020-01-14] MEDS: FERROUS SULFATE 324 MG TABLET PO (09:34)
[2020-01-14] MEDS: VITAMIN B COMPLEX/VIT C CAPSULE 1 EACH PO (09:34)
--- NOTE | 2020-01-21 15:55 | PC.NURSE ---
Pt stated she needs somebody at the hospital to help her to get started on disability cause I can't even walk without hurting. She also requested information how to get a life alert necklace. Message left with Care Coordination ext. [phone].
== END 2020-01-14 10:30 | disposition home or self-care (01) | DRG 194 ==
LOC: ANHED 15:03 → ANH3MEDSUR 16:05 → ANHIMU 01-11 03:02 → ANH2MED 01-14 08:33 → ANHIMU 01-18 12:09
PROVIDERS: Physician Assistant; Admitting Provider Family Medicine; Emergency Provider Emergency Medicine; PCP Family Medicine; Visit Provider Family Medicine
DX: I50.9 Heart failure, unspecified (principal); J96.01 Acute respiratory failure with hypoxia; Z68.42 Body mass index [BMI] 45.0-49.9, adult; F17.210 Nicotine dependence, cigarettes, uncomplicated; E66.2 Morbid (severe) obesity with alveolar hypoventilation
CPT/HCPCS: 36415; 36600; 71045; 71046; 71275; 80048; 80053; 80061; 82375; 82607; 82805; 83050; 83540; 83550; 83735; 83880; 84443; 85025; 85027; 85380; 85610; 85730; 93005; 93306; 93970; 94002; 94003; 96374; 99285; A9270; G0378; G0379; J1940; Q9967

== ENCOUNTER 2020-06-18 11:41 | Inpatient (IN) | payer OTHER, SELFPAY ==
[2020-06-18] VITALS (22 sets, daily range): BP systolic 132–159; BP diastolic 84–134; PULSE 85–102; RESP 16–27; TEMP 35.8–36.6; O2SAT 76–99; BMI 53.3
--- NOTE | ~2020-06-18 | XR_ITS ---
EXAMINATION: XR knee LT 3V DATE: 06/19/2020 12:35 INDICATION: Left knee pain. Fall. TECHNIQUE: 2 views of left knee were obtained. COMPARISON: None. FINDINGS: Bone alignment is normal. No fracture. There is mild tricompartmental osteoarthritis. There is a small knee joint effusion. IMPRESSION: 1. Mild left knee osteoarthritis. 2. Small left knee joint effusion. Reviewed, dictated and finalized at location B. L MAKER PLASTER
--- NOTE | ~2020-06-18 | CT_ITS ---
EXAMINATION: CTA chest PE protocol DATE: 06/18/2020 14:29 INDICATION: Midsternal chest pain, shortness of breath. Bilateral lower extremity edema. TECHNIQUE: Computed tomography angiography (CTA) of the chest was performed with 100 mL Omnipaque-350 intravenous contrast timed to evaluate the pulmonary arteries. Coronal maximum intensity projection 3D-reconstructions were created by the technologist. Automated exposure control and iterative reconst ruction technique were employed. Exam dose: 859.67 mGy-cm total exam DLP. COMPARISON: 06/18/2020 portable AP chest 01/10/2020 CT pulmonary scan FINDINGS: There is diagnostic contrast enhancement of the pulmonary arteries and no evidence of pulmo nary embolism. No thoracic aortic aneurysm or dissection. Cardiomegaly. No pericardial or pleural effusion. No hilar or mediastinal mass lesion or lymphadenopathy. There are bilateral rather diffuse groundglass pulmonary infiltrates. There is bilateral lower lobe d ependent atelectasis. Degenerative changes of the thoracic spine. No suspicious osteolytic or osteoblastic lesions are note d. IMPRESSION: Cardiomegaly, bilateral groundglass pulmonary infiltrates, suggesting pulmonary edema. P neumonia is not excluded Bilateral dependent lower lobe atelectasis No evidence of pulmonary embolism Reviewed, dictated and finalized at Location A. Reviewed, dictated and finalized at location A. NSION CLERK IMPRESSION: Cardiomegaly, bilateral groundglass pulmonary infiltrates, suggest ing pulmonary edema. Pneumonia is not excluded Bilateral dependent lower lobe atelectasis No evidence of pulmonary embolism
--- NOTE | ~2020-06-18 | XR_ITS ---
EXAMINATION: XR chest 1V portable DATE: 06/18/2020 13:33 INDICATION: Mid chest pain TECHNIQUE: frontal view of the chest was obtained. COMPARISON: Chest radiograph dated 01/14/2020 FINDINGS: Evaluation in the lower lung zones mildly limited by patient body habitus and portable technique. Car diomegaly with pulmonary vascular congestion. No focal airspace opacities, pulmonary edema, pleural e ffusion or pneumothorax. IMPRESSION: 1. Cardiomegaly with pulmonary vascular congestion. Reviewed, dictated and finalized at location A. [employer]NEL SUPERVISOR
--- NOTE | 2020-06-18 11:48 | ECG_ITS ---
Measurements Intervals [place] Rate: 97 P: 48 [place]: 149 QRS: 114 QRSD: 71 T: 25 QT: 343 QTc: 436 Interpretive Statements SINUS RHYTHM RIGHT AXIS DEVIATION POSSIBLE RIGHT ATRIAL ENLARGEMENT LEFT ATRIAL ENLARGEMENT LOW VOLTAGE- PRECORDIAL LEADS CANNOT RULE OUT SEPTAL INFARCT, AGE INDETERMINATE BORDERLINE T WAVE ABNORMALITY- ANTERIOR LEADS BASELINE ARTIFACT- I, II, III, AVR, AVL, AVF ABNORMAL ECG Electronically Signed On 06-18-2020 13:05:27 [employer] by Nicho Mccartney D.O.
--- NOTE | 2020-06-18 12:10 | PC.NURSE ---
patient brought back to ED room 5 with lethargy and dyspnea. see notes. patient has hx of severe RAO but does not have Cpap at home. alert but doses off while talking. assisted to stretcher. has gown on. EKG done in triage. SL inserted in triage. labs pending. patient on telemetry monitor. side rails up x 2 with call light in reach.
[2020-06-18 12:21] LABS: Basophils Percent Auto 0.3 % (0.2-1.2); Eosinophils Percent Auto 0.1 % (0-4.4); Hematocrit 53.9 % (37.0-47.0); Hemoglobin 17.3 g/dL (12.0-15.0); Immature Granulocyte Absolute 0.02 K/mm3 (0.00-0.031); Immature Granulocyte Percent A 0.3 % (0-0.5); Lymphocytes Absolute Auto 1.83 K/mm3 (0.9-3.2); Lymphocytes Percent Auto 24.1 % (18.3-44.2); Mean Corpuscular HGB Conc 32.1 g/dl (32-36); Mean Corpuscular Hemoglobin 29.7 pg (26-34); Mean Corpuscular Volume 92.5 fl (80-100); Mean Platelet Volume 9.5 fl (7.4-10.4); Monocytes Absolute Auto 0.5 K/mm3 (0.1-0.6); Monocytes Percent Auto 6.1 % (2.6-8.5); Neutrophils Absolute Auto 5.2 K/mm3 (1.3-6.7); Neutrophils Percent Auto 69.1 % (45.5-73.1); Nucleated Red Blood Cells Perc 0.5 % (0.0-0.2); Platelet Count Result 273 k/mm3 (150-375); Red Blood Count 5.83 M/mm3 (4.2-5.4); Red Cell Distribution Width 14.2 % (11.5-14.5); White Blood Count 7.6 K/mm3 (4.5-10.0)
[2020-06-18 12:37] LABS: INR 0.9; Partial Thromboplastin Time 24.7 SECONDS (22.3-36.8); Prothrombin Time 12.8 Seconds (11.1-14.7)
--- NOTE | 2020-06-18 13:13 | PC.NURSE ---
PT SAT UPRIGHT, REPOSITIONED AND PLACED ON 4L VIA NC FOR ROOM AIR SATURATION OF 76%, RESULTING IN O2 SATURATION OF 99%.
[2020-06-18] MEDS: ASPIRIN 81 MG CHEWABLE TABLET 324 MG PO (13:16)
--- NOTE | 2020-06-18 13:22 | ED.CHESTPAIN ---
HPI - Chest Pain General Chief Complaint: Chest Pain Stated Complaint: CHEST PAIN X1D, SWELLING Time Seen by Provider: 06/18/20 13:15 Source: RN notes reviewed History of Present Illness HPI narrative: Patient presents emergency department from home for shortness of breath and chest pain. Patient began to notice shortness of breath proximally 3 days ago with swelling of bilateral lower extremities. States that last night she felt like someone was sitting on her chest but that is improved today. He states she has a history of having an mild heart attack approximately 4 months ago and had been seen at [place] at that time did not have any stents placed but has not followed up since that time she states she had been on aspirin for a while but no longer takes any medication and is on no diuretics she denies any fevers or chills abdominal pain nausea vomiting or any other symptoms. Related Data Home Medications Medication Instructions Recorded Confirmed B-complex with vitamin C 1 tablet PO DAILY 01/10/20 06/18/20 Warren-Plex Iron 85 mg PO DAILY 01/10/20 06/18/20 Vitamin D3 500 mg PO DAILY 01/10/20 06/18/20 Allergies Allergy/AdvReac Type Severity Reaction Status Date / Time No Known Allergies Allergy Unknown Verified 06/18/20 17:44 Review of Systems Review of Systems: Narrative: Gen.: Denies fevers or chills ENT: Denies congestion Respiratory: See HPI CV: Reports chest pain GI: Denies abdominal pain nausea, emesis or diarrhea denies burning, urgency, frequency or hematuria Musculoskeletal: Denies back pain or muscle pain Neuro: Denies numbness, tingling, weakness or focal weakness Skin: Denies rash Except as documented, all other systems reviewed and negative [facility] Past Medical History Medical History Morbid obesity Obstructive sleep apnea She has not worn her CPAP for many years. Surgical History Surgical History History of tonsillectomy History of tubal ligation Family History Family History Grandparent Mental and behavioral problem Grandparent Diabetes mellitus Father Diabetes mellitus Social History Social History Social History: The patient lives in [place] with her children. She used to work at [employer] however it has been close since the COVID [id number] order. She smokes about half pack of cigarettes per day. She occasionally uses marijuana. No significant alcohol use. She designates her daughter, Tamie [place], as her surrogate decision maker and she wishes to be a full code. Smoking packs per day: 0.5 Smoking cigarettes per day: 10.0 Years smoked: 20 Smoking pack-years: 10.00 Smoking status: Unknown if ever smoked Tobacco type: cigarettes Alcohol intake: unknown Substance use: unknown Substance use type: marijuana Gender identity (if verbalized by the patient): Female Spiritual care concerns: No Exam Narrative: Exam Narrative: APPEARANCE: No acute distress, nontoxic, resting in bed EYES: EOMI HEENT: Normocephalic, atraumatic, OMM RESPIRATORY: No respiratory distress Clear to auscultation bilaterally with no rhonchi wheezing or rales. CARDIOVASCULAR: Regular rate and rhythm without murmurs rubs or gallops. ABDOMINAL: Soft, nontender, nondistended, no rebound or guarding MUSCULOSKELETAl: Moves all extremities. No clubbing, cyanosis 3+ edema the bilateral lower extremities NEURO: Awake and alert. Following commands, speech normal, no focal deficits SKIN:: Warm, dry. No rashes lesions or abrasions PSYCHIATRIC: Normal affect/mood, Course Course Emergency Course: Reviewed old records Patient was placed on BiPAP and be monitored her gases do show continued improvement while on BiPAP Discussed with DAVIAN Wooten for Dr. Wall pre
[2020-06-18 13:44] LABS: Blood Urea Nitrogen 6 mg/dL (7-17); Calcium 8.4 mg/dL (8.4-10.2); Carbon Dioxide > 40 mmol/L (22-30); Chloride 100 mmol/L (98-107); Estimated CRCL calculation 144 ml/min; Estimated Glomerular Filt Rate > 60; Glucose 166 mg/dL (65-105); Potassium 3.8 mmol/L (3.4-5.0); Sodium 140 mmol/L (137-145)
[2020-06-18 13:56] LABS: NT Pro B Type Natriuretic Pept 868 PG/ML (5-100); Troponin I 0.021 ng/mL (0.000-0.034)
[2020-06-18 14:17] LABS: Alveolar/Arterial O2 Gradient 14.7 mmHg; Base Excess ABG 3.9 mEq/l (+/-2.0); Fractional Inspired Oxygen 36 %; Oxygen Content ABG 23.9 %vol (16.0-22.0); Oxygen Saturation ABG 97.7 % (95.0-100.0); Oxyhemoglobin 89.9 % THb (90.0-100.0); PO2 ABG 129.3 mmHg (80.0-100.0); PO2 FiO2 Ratio Arterial Blood 3.59 %; Total Hemoglobin 18.8 g/dL (12.0-18.0)
[2020-06-18 14:18] LABS: Device NASAL CANNULA; Modified Allen's Test Pass; PCO2 ABG 97.1 mmHg (35.0-45.0); Site Drawn LEFT RADIAL; pH ABG 7.199 (7.350-7.450)
--- NOTE | 2020-06-18 14:30 | PC.NURSE ---
patient placed on bipap by respiratory after ABGs reviewed with provider. patient lethargic. arouses to verbal stimuli. wants to eat and wants to drink. reviewed several times with patient importance of staying on bipap. patient falls back to sleep while talking. on bus monitor. side rails up x 2.
[2020-06-18] MEDS: FUROSEMIDE INJ 40 MG/4 ML VIAL IV PUSH (15:06)
--- NOTE | 2020-06-18 15:08 | PC.NURSE ---
lasix IV given. on bipap. waiting for a bed assignment upstairs. on rice drier operator. side rails up x 2. call light in reach.
[2020-06-18 15:45] LABS: Alveolar/Arterial O2 Gradient 104.1 mmHg; Base Excess ABG 6.1 mEq/l (+/-2.0); Fractional Inspired Oxygen 40 %; Oxygen Content ABG 22.7 %vol (16.0-22.0); Oxygen Saturation ABG 93.3 % (95.0-100.0); Oxyhemoglobin 88.2 % THb (90.0-100.0); PO2 ABG 80.1 mmHg (80.0-100.0); Total Hemoglobin 18.3 g/dL (12.0-18.0); pH ABG 7.254 (7.350-7.450)
[2020-06-18 15:46] LABS: Device NON-INVASIVE VENT; Modified Allen's Test Pass; Non-Invasive Expiratory Pressure 8 CMH2O; Non-Invasive Inspiratory Pressure 16 CMH2O; Non-Invasive Vent Rate 20 /MIN; PCO2 ABG 87.8 mmHg (35.0-45.0); Site Drawn LEFT RADIAL
--- NOTE | 2020-06-18 17:06 | PC.NURSE ---
respiratory in room now for repeat ABG's.
[2020-06-18 17:07] LABS: Alveolar/Arterial O2 Gradient 114.1 mmHg; Base Excess ABG 4.5 mEq/l (+/-2.0); Fractional Inspired Oxygen 40 %; HCO3 ABG 35.8 mEq/l (22.0-26.0); Oxygen Content ABG 22.1 %vol (16.0-22.0); Oxygen Saturation ABG 92.3 % (95.0-100.0); Oxyhemoglobin 87.2 % THb (90.0-100.0); PO2 ABG 75.8 mmHg (80.0-100.0)
[2020-06-18 17:09] LABS: Modified Allen's Test Pass; PCO2 ABG 82.9 mmHg (35.0-45.0); Site Drawn LEFT RADIAL; pH ABG 7.253 (7.350-7.450)
[2020-06-18 17:10] LABS: Device NON-INVASIVE VENT; Non-Invasive Expiratory Pressure 8 CMH2O; Non-Invasive Inspiratory Pressure 16 CMH2O; Non-Invasive Vent Rate 20 /MIN
--- NOTE | 2020-06-18 17:55 | PC.NURSE ---
report called to IMU RN. will transfer patient to [facility]. respiratory notified for transport on bipap.
--- NOTE | 2020-06-18 18:05 | PC.NURSE ---
patient transferred to [facility]. RN and tech in room. assisted to repositioned patient. on bipap.
[2020-06-18 20:05] LABS: Troponin I 0.022 ng/mL (0.000-0.034)
--- NOTE | 2020-06-18 20:17 | PM.IMHP ---
H&P: HPI History of Present Illness Date/Time: 06/18/20 20:17 Chief complaint: acute respiratory failure with hypercapneia,chf Narrative: Watson Catalan is a 49 year old female to the emergency room for shortness of breath and chest pain. Patient began to no shortness of breath about 3 days ago and swelling to her lower extremities. Patient says she felt like small sitting on her chest but it did improve. She states she had a mild heart attack in the past. She was seen at [facility] about 4 months ago and then sent home. She did get any stents though. The patient has severe sleep apnea. She had no fever chills. She no longer takes her medications or diuretics. She had been on Lasix at 1 time but has not been taking it. CTA PE was read as cardiomegaly bilateral ground-glass pulmonary infiltrates suggesting pulmonary edema. Pneumonia is not excludable. Bilateral dependent lower lobe atelectasis. No evidence of pulmonary embolism. Pulmonary vascular congestion. PH 7.254 CO2 was 87.8 O2 saturation 93 on BiPAP and repeat pH 7.253 CO2 was 82.9 O2 saturation was 75% on the BiPAP. Blood sugar was 166. Troponins negative x2 so far. BNP 868. Patient was given aspirin and IV Lasix. Patient is being admitted to inpatient status on date of service 06/18/2020 Review of Systems Review of Systems: ROS unobtainable: Yes unobtainable due to mental status (Patient currently on a BiPAP machine) Constitutional: Constitutional: Reports as per HPI and Reports no additional constitutional complaints Eyes: Eyes: Reports as per HPI and Reports no additional eye complaints ENT: Reports system reviewed and no additional complaints, except as documented and Reports Normal hearing present Cardiovascular: Cardiovascular: Reports no additional cardiovascular complaints Respiratory: Respiratory: Reports no additional respiratory complaints and Reports no additional respiratory complaints Gastrointestinal: Gastrointestinal: Reports as per HPI and Reports no additional gastrointestinal complaints Musculoskeletal: Musculoskeletal: Reports no additional musculoskeletal complaints Integumentary/Breasts: Skin/Breast: Reports system reviewed and no additional complaints, except as docu and Reports as per HPI Neurologic: Reports system reviewed and no additional complaints, except as documented, Reports as per HPI and Reports Normal hearing present Psychiatric: Psychiatric: Reports no additional psychiatric complaints and Reports as per HPI Endocrine: Endocrine: Reports no additional endocrine complaints Hematologic/Lymphatic: Hematologic/Lymphatic: Reports no additional hematologic/lymphatic complaints Allergic/Immunologic: Allergic/Immunologic: Reports no additional allergic/immunologic complaints [facility] Past Medical History Medical History (Updated 06/18/20 @ 20:23 by Sugar Nash NP) CHF exacerbation Morbid obesity Obstructive sleep apnea She has not worn her CPAP for many years. Surgical History Surgical History History of tonsillectomy History of tubal ligation Family History Family History Grandparent Mental and behavioral problem Grandparent Diabetes mellitus Father Diabetes mellitus Social History Social History (Updated 06/18/20 @ 20:24 by Sugar Nash NP) Social History: The patient lives in [place] with her children. She smokes about half pack of cigarettes per day. She occasionally uses marijuana. No significant alcohol use. She designates her daughter, Tamie [place], as her surrogate decision maker and she wishes to be a full code. Smoking packs per day: 0.5 Smoking cigarettes per day: 10.0 Years smoked: 20 Smoking pack-years: 10.00 Smoking status: Unknown if ever smoked Tobacco type: cigarettes Alcohol intake: unknown Substance use: unknown Substan
[2020-06-18 21:39] LABS: Alveolar/Arterial O2 Gradient 116.4 mmHg; Base Excess ABG 7.4 mEq/l (+/-2.0); Fractional Inspired Oxygen 40 %; HCO3 ABG 38.2 mEq/l (22.0-26.0); Oxygen Content ABG 21.8 %vol (16.0-22.0); Oxygen Saturation ABG 92.9 % (95.0-100.0); Oxyhemoglobin 89.2 % THb (90.0-100.0); PO2 ABG 75.4 mmHg (80.0-100.0); PO2 FiO2 Ratio Arterial Blood 1.88 %; Total Hemoglobin 17.4 g/dL (12.0-18.0)
[2020-06-18 21:42] LABS: Device BIPAP; Expiratory Pressure 8 cmH2O; Inspiratory Pressure 20 cmH2O; Modified Allen's Test Pass; PCO2 ABG 81.2 mmHg (35.0-45.0); Site Drawn RIGHT RADIAL
[2020-06-19] VITALS (21 sets, daily range): BP systolic 115–146; BP diastolic 66–99; PULSE 22–99; RESP 18–98; TEMP 35.8–37; O2SAT 90–99
--- NOTE | 2020-06-19 02:41 | PC.NURSE ---
Pt has refused to put her bipap back on since about 229906/18/2020. She is alert and oriented and wanting to watch tv and play her scratch offs
[2020-06-19 04:58] LABS: Basophils Percent Auto 0.4 % (0.2-1.2); Eosinophils Percent Auto 0.1 % (0-4.4); Hematocrit 53.5 % (37.0-47.0); Hemoglobin 16.7 g/dL (12.0-15.0); Immature Granulocyte Absolute 0.02 K/mm3 (0.00-0.031); Immature Granulocyte Percent A 0.3 % (0-0.5); Lymphocytes Absolute Auto 1.46 K/mm3 (0.9-3.2); Lymphocytes Percent Auto 21.4 % (18.3-44.2); Mean Corpuscular HGB Conc 31.2 g/dl (32-36); Mean Corpuscular Hemoglobin 28.9 pg (26-34); Mean Corpuscular Volume 92.7 fl (80-100); Mean Platelet Volume 9.7 fl (7.4-10.4); Monocytes Absolute Auto 0.6 K/mm3 (0.1-0.6); Monocytes Percent Auto 8.4 % (2.6-8.5); Neutrophils Absolute Auto 4.7 K/mm3 (1.3-6.7); Neutrophils Percent Auto 69.4 % (45.5-73.1); Nucleated Red Blood Cells Perc 0.6 % (0.0-0.2); Platelet Count Result 247 k/mm3 (150-375); Red Blood Count 5.77 M/mm3 (4.2-5.4); Red Cell Distribution Width 13.9 % (11.5-14.5); White Blood Count 6.8 K/mm3 (4.5-10.0)
[2020-06-19 05:24] LABS: Blood Urea Nitrogen 6 mg/dL (7-17); Calcium 8.4 mg/dL (8.4-10.2); Carbon Dioxide > 40 mmol/L (22-30); Chloride 100 mmol/L (98-107); Estimated CRCL calculation 129 ml/min; Estimated Glomerular Filt Rate > 60; Glucose 128 mg/dL (65-105); Sodium 140 mmol/L (137-145)
[2020-06-19] MEDS: ENOXAPARIN 40 MG/0.4 ML SYRINGE SUB-Q (08:58)
[2020-06-19] MEDS: FUROSEMIDE INJ 40 MG/4 ML VIAL IV PUSH ×2 (08:58→17:48)
[2020-06-19] MEDS: EUCERIN CREAM 120 GM JAR 1 APPLIC TOPICAL (08:58)
--- NOTE | 2020-06-19 11:48 | PM.IMPN ---
Progress Note: A&P Assessment and Plan (1) Acute respiratory failure with hypoxia and hypercapnia: Code(s): J96.01 - Acute respiratory failure with hypoxia; J96.02 - Acute respiratory failure with hypercapnia Status: Acute Assessment and Plan: Patient has severe sleep apnea with probably obesity hypoventilation syndrome. SHe is here with hypoxia and hypercapnia with ABG 7.199/97/129 on 4L. Patient is tolerating the BiPAP and her ABG is improving and she is feeling better. Suspect mostly this is related to untreated RAO/OHS. Continue BiPAP at night. Respiratory to help with obtaining BiPAP at night for home. Pulmonary consult. (2) CHF exacerbation: Qualifiers: Heart failure type: unspecified Qualified Code(s): I50.9 - Heart failure, unspecified Code(s): I50.9 - Heart failure, unspecified Status: Chronic Assessment and Plan: Her echo in January of this year showing mild LVH, EF 65% and nml diastolic function. She does have moderate pulmonary HTN with PASP 52mmHg. CTA of the chest showing no PE but does showing CMG and pulmonary edema. Patient has been noncompliant with her medication (Lasix). Good UOP with the Lasix. Contineu with IV diuretics for now. (3) Obstructive sleep apnea: Code(s): G47.33 - Obstructive sleep apnea (adult) (pediatric) Status: Acute Assessment and Plan: Patient is noncompliant with following up to obtain PAP treatment home. She is having significant symptoms related to CO2 retention such as falling asleep while driving and sleep walking. Will need to arrange for PAP therapy at home. As above. (4) Morbid obesity: Code(s): E66.01 - Morbid (severe) obesity due to excess calories Status: Acute Assessment and Plan: She was educated about the benefits of leading a healthy lifestyle. Will have dietitian consulted. (5) Tobacco abuse: Code(s): Z72.0 - Tobacco use Status: Acute Assessment and Plan: She was educated about the benefits of smoking cessation. (6) Noncompliance: Code(s): Z91.19 - Patient's noncompliance with other medical treatment and regimen Status: Acute Assessment and Plan: As above. Compliance was stressed. (7) CAD (coronary artery disease): Code(s): I25.10 - Atherosclerotic heart disease of [place] coronary artery without angina pectoris Status: Acute Assessment and Plan: Patient presumably had a myocardial infarction 4 months ago at another hospital. EKG showing QS pattern in V1 V2 possibly old septal infarct. No acute findings. Telemetry showing no significant dysrhythmias. Will check lipid panel. Will add aspirin and Lipitor. (8) DVT prophylaxis: Code(s): Z29.9 - Encounter for prophylactic measures, unspecified Status: Acute Assessment and Plan: Lovenox (9) Acute and chronic respiratory failure with hypercapnia: Code(s): J96.22 - Acute and chronic respiratory failure with hypercapnia Status: Acute Subjective Date/time seen: 06/19/20 11:48 Interval history: Date of service 06/19/2020 49yo female for with a history of CAD, RAO, CHF and tobacco use here for acute respiratory failure and lower extremity edema. Assuming care. Chart reviewed. Patient complains of left knee pain and swelling. States that the knee feels better today. She had a fall just prior to admission landing on her left knee. She was sitting and fell forward onto her knees. She falls quite frequently. She has altered mental status and falls asleep while driving at times. She has had sleep apnea for 20 years but has never been given CPAP. She states she had heart attack 4 months ago but has never followed up since that time. She feels well today. She has been tolerating the mask at night. Eating normally. No chest pain or shortness of breath. Overall she states ?I feel good? Exam Narrative: Exam Na
--- NOTE | 2020-06-19 13:18 | PCOTNOTE ---
Attempted OT evaluation, patient eating, will continue to attempt.
--- NOTE | 2020-06-19 14:50 | PM.CNPUL ---
Assessment and Plan Assessment and plan (1) Acute and chronic respiratory failure with hypercapnia: Code(s): J96.22 - Acute and chronic respiratory failure with hypercapnia Status: Acute Assessment and Plan: Likely multifactorial and due to RAO/OHS, cannot rule out obstructive airway disease at this time. - change BIPAP settings to 24/6 with backup rate of 18 and 40% FiO2 - daily AM ABGs ordered - I will order outpatient sleep study - I will order outpatient PFT History of Present Illness History of Present Illness Consult date: 06/19/20 Chief complaint: acute respiratory failure with hypercapneia,chf Narrative: 49 y/o morbidly obese female with history of diastolic CHF, PHTH, smokes 5-10 cigs/day for many years presents after a fall and visual hallucinations and was found to be in acute on chronic hypercapnic respiratory failure. She seems to be doing better after starting BIPAP 20/8 with backup rate of 20 and FiO2 of 40%. She's awake an alert during examination but does admit to multiple night time awakenings, napping during the day, fatigue tiredness, significant weight gain over the years. Review of Systems Review of Systems: All systems reviewed & are unremarkable except as noted in HPI and below PMFSH Past Medical History Medical History (Updated 06/19/20 @ 15:00 by Estevan Sanderson MD) CHF exacerbation Morbid obesity Obstructive sleep apnea She has not worn her CPAP for many years. Surgical History Surgical History History of tonsillectomy History of tubal ligation Family History Family History Grandparent Mental and behavioral problem Grandparent Diabetes mellitus Father Diabetes mellitus Social History Social History (Updated 06/18/20 @ 20:24 by Sugar Nash NP) Social History: The patient lives in [place] with her children. She smokes about half pack of cigarettes per day. She occasionally uses marijuana. No significant alcohol use. She designates her daughter, Tamie [place], as her surrogate decision maker and she wishes to be a full code. Smoking packs per day: 0.5 Smoking cigarettes per day: 10.0 Years smoked: 20 Smoking pack-years: 10.00 Smoking status: Unknown if ever smoked Tobacco type: cigarettes Alcohol intake: unknown Substance use: unknown Substance use type: marijuana Gender identity (if verbalized by the patient): Female Spiritual care concerns: No Meds Home Medications and Allergies Home Medications Medication Instructions Recorded Confirmed Type B-complex with vitamin C 1 tablet PO DAILY 01/10/20 06/18/20 History [place] 85 mg PO DAILY 01/10/20 06/18/20 History Vitamin D3 500 mg PO DAILY 01/10/20 06/18/20 History furosemide [Lasix] 40 mg PO DAILY #30 tablet 01/14/20 06/18/20 Rx Allergies Allergy/AdvReac Type Severity Reaction Status Date / Time No Known Allergies Allergy Unknown Verified 06/18/20 17:44 Vital Signs Vital Signs - 24 hr 06/18/20 15:26 06/18/20 16:27 06/18/20 16:30 Temperature Pulse Rate 91 91 95 Respiratory Rate 19 17 18 Blood Pressure Pulse Oximetry 06/18/20 16:31 06/18/20 16:35 06/18/20 16:48 Temperature Pulse Rate 93 89 91 Respiratory Rate 27 H 23 H 22 H Blood Pressure 159/130 H Pulse Oximetry 94 06/18/20 17:00 06/18/20 17:01 06/18/20 17:15 Temperature Pulse Rate 88 85 89 Respiratory Rate 19 22 H 16 Blood Pressure 153/134 H Pulse Oximetry 06/18/20 17:33 06/18/20 17:45 06/18/20 18:00 Temperature 35.8 C L Pulse Rate 89 89 85 Respiratory Rate 21 H 17 20 Blood Pressure 132/86 Pulse Oximetry 97 06/18/20 18:12 06/18/20 20:00 06/18/20 22:00 Temperature 36.6 C Pulse Rate 88 91 90 Respiratory Rate 23 H 20 Blood Pressure 134/84 Pulse Oximetry 96 98 06/19/20 00:00 06/19/20 02:00 06/19/20 03:2
[2020-06-19] MEDS: acetaZOLAMIDE TAB 250 MG TABLET PO (17:48)
[2020-06-19] MEDS: ACETAMINOPHEN 325 MG TABLET 650 MG PO (21:53)
[2020-06-20] VITALS (19 sets, daily range): BP systolic 119–130; BP diastolic 60–92; PULSE 79–105; RESP 18–22; TEMP 36–36.8; O2SAT 18–98
[2020-06-20 05:20] LABS: Basophils Percent Auto 0.5 % (0.2-1.2); Eosinophils Absolute Auto 0.4 K/mm3 (0-0.3); Eosinophils Percent Auto 4.9 % (0-4.4); Hematocrit 54.9 % (37.0-47.0); Hemoglobin 17.2 g/dL (12.0-15.0); Immature Granulocyte Absolute 0.02 K/mm3 (0.00-0.031); Immature Granulocyte Percent A 0.3 % (0-0.5); Lymphocytes Absolute Auto 1.69 K/mm3 (0.9-3.2); Lymphocytes Percent Auto 22.2 % (18.3-44.2); Mean Corpuscular HGB Conc 31.3 g/dl (32-36); Mean Corpuscular Hemoglobin 29.1 pg (26-34); Mean Corpuscular Volume 92.7 fl (80-100); Monocytes Absolute Auto 0.5 K/mm3 (0.1-0.6); Monocytes Percent Auto 6.4 % (2.6-8.5); Neutrophils Percent Auto 65.7 % (45.5-73.1); Nucleated Red Blood Cells Perc 0.5 % (0.0-0.2); Platelet Count Result 249 k/mm3 (150-375); Red Blood Count 5.92 M/mm3 (4.2-5.4); Red Cell Distribution Width 13.5 % (11.5-14.5); White Blood Count 7.6 K/mm3 (4.5-10.0)
[2020-06-20 05:43] LABS: Alanine Aminotransferase 24 U/L (4-35); Albumin Level 3.4 g/dL (3.5-5.1); Alkaline Phosphatase 71 U/L (38-126); Aspartate Amino Transferase 30 U/L (14-36); Bilirubin,Total 0.6 mg/dL (0.2-1.3); Blood Urea Nitrogen 8 mg/dL (7-17); Calcium 8.8 mg/dL (8.4-10.2); Carbon Dioxide > 40 mmol/L (22-30); Chloride 95 mmol/L (98-107); Cholesterol 165 mg/dL (0-200); Estimated CRCL calculation 111 ml/min; Estimated Glomerular Filt Rate > 60; Glucose 107 mg/dL (65-105); HDL Direct 25 mg/dL; Magnesium 1.9 mg/dL (1.6-2.3); Phosphorus 4.6 mg/dL (2.5-4.5); Potassium 3.7 mmol/L (3.4-5.0); Sodium 138 mmol/L (137-145); Triglycerides 137 mg/dL (<150)
[2020-06-20 05:50] LABS: LDL Cholesterol Direct 118 mg/dL
[2020-06-20 08:04] LABS: Alveolar/Arterial O2 Gradient 57.6 mmHg; Base Excess ABG 6.7 mEq/l (+/-2.0); Carboxyhemoglobin 1.4 % THb (0-2.0); Fractional Inspired Oxygen 32 %; HCO3 ABG 37.1 mEq/l (22.0-26.0); Methemoglobin ABG 0.5 %THb (0-1.5); Oxygen Content ABG 23.9 %vol (16.0-22.0); Oxygen Saturation ABG 94.1 % (95.0-100.0); Oxyhemoglobin 93.3 % THb (90.0-100.0); Reduced Hemoglobin 4.8 %THb (0-5.0); Total Hemoglobin 18.2 g/dL (12.0-18.0); pH ABG 7.299 (7.350-7.450)
[2020-06-20 08:07] LABS: Device NASAL CANNULA; Modified Allen's Test Pass; PCO2 ABG 77.4 mmHg (35.0-45.0); Site Drawn RIGHT RADIAL
[2020-06-20] MEDS: ENOXAPARIN 40 MG/0.4 ML SYRINGE SUB-Q (08:27)
[2020-06-20] MEDS: acetaZOLAMIDE TAB 250 MG TABLET PO ×2 (08:27→16:58)
[2020-06-20] MEDS: ASPIRIN 81 MG CHEWABLE TABLET PO (08:27)
[2020-06-20] MEDS: FUROSEMIDE INJ 40 MG/4 ML VIAL IV PUSH (08:28)
[2020-06-20] MEDS: ATORVASTATIN 40 MG TABLET PO (08:28)
[2020-06-20] MEDS: EUCERIN CREAM 120 GM JAR 1 APPLIC TOPICAL (08:29)
[2020-06-20] MEDS: ACETAMINOPHEN 325 MG TABLET 650 MG PO ×3 (08:35→23:01)
--- NOTE | 2020-06-20 11:52 | PM.PNPUL ---
Progress Note: A&P Assessment and Plan (1) Acute and chronic respiratory failure with hypercapnia: Code(s): J96.22 - Acute and chronic respiratory failure with hypercapnia Status: Acute Assessment and Plan: Likely multifactorial and due to RAO/OHS, cannot rule out obstructive airway disease at this time. - change BIPAP settings to 24/6 with backup rate of 18 and 40% FiO2 - daily AM ABGs ordered - I will order outpatient sleep study - I will order outpatient PFT Subjective Date/time seen: 06/20/20 11:52 49 y/o morbidly obese female with history of diastolic CHF, PHTH, smokes 5-10 cigs/day for many years presents after a fall and visual hallucinations and was found to be in acute on chronic hypercapnic respiratory failure. She seems to be doing better after starting BIPAP 20/8 with backup rate of 20 and FiO2 of 40%. She's awake an alert during examination but does admit to multiple night time awakenings, napping during the day, fatigue tiredness, significant weight gain over the years. Review of Systems Review of Systems: All systems reviewed & are unremarkable except as noted in HPI and below Exam Const: General: cooperative, healthy appearing, comfortable, no acute distress, well developed, alert, awake and Physically active Nutritional Appearance: obese morbidly obese Orientation/consciousness: oriented to person, oriented to place, oriented to time and patient oriented x3 Limitations: no limitations HENMT: Head: normal to inspection, normocephalic and atraumatic Eyes: General: appearance normal, both eyes and all related structures Resp: Effort & Inspection: normal respiratory effort Auscultation: diminished lung sounds and bronchial breath sounds GI: Inspection: normal to inspection Auscultation: normal bowel sounds Skin: General skin exam: normal color and no rashes or lesions noted Neuro: General: oriented to person, oriented to place, oriented to time and patient oriented x3 Cognition (Neuro): normal cognition Speech: normal speech Extrem: General: pedal edema present Psych: Appearance: grossly normal and well kempt Mental Status: mental status grossly normal Objective Data Vital Signs Vital Signs: Vital Signs - 24 hr 06/19/20 11:59 06/19/20 12:00 06/19/20 12:30 Temperature 37.0 C Pulse Rate 81 84 98 Respiratory Rate 23 H 22 H Blood Pressure 115/76 Pulse Oximetry 94 92 96 12/08/20 14:00 06/19/20 16:00 06/19/20 18:00 Temperature 36.9 C Pulse Rate 89 89 87 Respiratory Rate 18 Blood Pressure 131/79 Pulse Oximetry 92 06/19/20 20:00 06/19/20 22:00 06/19/20 22:21 Temperature 35.9 C L Pulse Rate 84 82 85 Respiratory Rate 18 Blood Pressure 119/66 Pulse Oximetry 96 97 06/19/20 22:50 06/19/20 23:35 06/19/20 23:41 Temperature 35.8 C L Pulse Rate 88 85 Respiratory Rate 20 Blood Pressure 123/78 Pulse Oximetry 95 96 97 06/20/20 00:00 06/20/20 01:30 06/20/20 02:00 Temperature Pulse Rate 90 84 80 Respiratory Rate 21 H Blood Pressure Pulse Oximetry 95 06/20/20 03:19 06/20/20 03:29 06/20/20 04:00 Temperature Pulse Rate 82 79 Respiratory Rate 19 Blood Pressure Pulse Oximetry 93 93 06/20/20 04:18 06/20/20 06:00 06/20/20 07:40 Temperature 36.3 C L Pulse Rate 87 95 88 Respiratory Rate 18 20 Blood Pressure 130/74 Pulse Oximetry 96 93 06/20/20 08:00 06/20/20 10:00 Temperature 36.1 C L Pulse Rate 84 89 Respiratory Rate 22 H Blood Pressure 123/77 Pulse Oximetry 93 Intake/Output Intake/Output: Intake & Output 06/17/20 06/18/20 06/19/20 06/20/20 23:59 23:59 23:59 23:59 Intake Total 1070 1220 Output Total 700 6000 Balance -700 -4930 1220 Meds/Results Medications: Active Medications Generic Name Dose Route Start Last Admin Trade Name Freq PRN Reason Stop Dose Admin Acetaminophen 650 mg 06/19/20 21:17 06/20/20 08:35 Acetaminophen 325 Mg Tablet PO 650 mg Q4H CO
--- NOTE | 2020-06-20 17:29 | PM.IMPN ---
Progress Note: A&P Assessment and Plan (1) Acute respiratory failure with hypoxia and hypercapnia: Code(s): J96.01 - Acute respiratory failure with hypoxia; J96.02 - Acute respiratory failure with hypercapnia Status: Acute Assessment and Plan: Patient is here with hypoxia and hypercapnia with ABG 7.199/97/129 on 4L. Patient with untreated sleep apnea with probably obesity hypoventilation syndrome. She is tolerating the BiPAP and her ABG has improved and she is feeling better. Suspect her symptoms mostly related to untreated RAO/OHS. Continue BiPAP at night. Apnea link tonight to try to qualify patient for Trilogy at home. Appreciate Pulmonary input. (2) CHF exacerbation: Qualifiers: Heart failure type: unspecified Qualified Code(s): I50.9 - Heart failure, unspecified Code(s): I50.9 - Heart failure, unspecified Status: Chronic Assessment and Plan: Her echo in January of this year showing mild LVH, EF 65% and nml diastolic function. She does have moderate pulmonary HTN with PASP 52mmHg. CTA of the chest showing no PE but does showing CMG and pulmonary edema. Patient has been noncompliant with her medication (Lasix). Good UOP with the Lasix. She is becoming contracted so Lasix dose decreased and acetazolamide added. (3) Obstructive sleep apnea: Code(s): G47.33 - Obstructive sleep apnea (adult) (pediatric) Status: Acute Assessment and Plan: Patient is noncompliant with following up to obtain PAP treatment home. She is having significant symptoms related to CO2 retention such as falling asleep while driving and sleep walking. Will need to arrange for PAP therapy at home. As above. (4) Morbid obesity: Code(s): E66.01 - Morbid (severe) obesity due to excess calories Status: Acute Assessment and Plan: She was educated about the benefits of leading a healthy lifestyle. Comb Capper has been consulted. (5) Tobacco abuse: Code(s): Z72.0 - Tobacco use Status: Acute Assessment and Plan: She was educated about the benefits of smoking cessation. (6) Noncompliance: Code(s): Z91.19 - Patient's noncompliance with other medical treatment and regimen Status: Acute Assessment and Plan: She has hx of noncompliance. Compliance was stressed. (7) CAD (coronary artery disease): Code(s): I25.10 - Atherosclerotic heart disease of [place] coronary artery without angina pectoris Status: Acute Assessment and Plan: Patient presumably had a myocardial infarction 4 months ago at another hospital. EKG showing QS pattern in V1 V2 possibly old septal infarct. No acute findings. Telemetry showing no significant dysrhythmias. Lipid panel noted. Continue aspirin and Lipitor. (8) DVT prophylaxis: Code(s): Z29.9 - Encounter for prophylactic measures, unspecified Status: Acute Assessment and Plan: Lovenox Subjective Date/time seen: 06/20/20 1130am Interval history: Date of service 06/20 49yo female for with a history of CAD, untreated RAO, CHF and tobacco use here for acute respiratory failure and lower extremity edema. Left knee pain better overall. Worse if she is sitting for an extended period but better when she is active. Slept well last night. Feels well. Requesting discharge. Wore the BiPAP last night. Walking to the BR. Exam Narrative: Exam Narrative: AF 96.9 123/77 84 22 93% 2L Gen - NARD sitting at the side of the bed Chest - CTA bilaterally, nml RR CV - RRR S1/S2; Tele no significant dysrhythmias Abd - Soft, obese, NT Ext - 2+ pitting pedal edema Psych - Nml mood and affect Skin - Warm and dry Objective Data Vital Signs Vital Signs: Vital Signs - 24 hr 06/19/20 18:00 06/19/20 20:00 06/19/20 22:00 Temperature 96.7 F L Pulse Rate 87 84 82 Respiratory Rate 18 Blood Pressure 119/66 Pulse Oximetry 96 06/19/20 22:21
[2020-06-21] VITALS (13 sets, daily range): BP systolic 117–137; BP diastolic 75–91; PULSE 75–100; RESP 18–24; TEMP 35.7–36.2; O2SAT 91–98
[2020-06-21] MEDS: ENOXAPARIN 40 MG/0.4 ML SYRINGE SUB-Q (08:06)
[2020-06-21] MEDS: acetaZOLAMIDE TAB 250 MG TABLET PO (08:06)
[2020-06-21] MEDS: ATORVASTATIN 40 MG TABLET PO (08:07)
[2020-06-21] MEDS: EUCERIN CREAM 120 GM JAR 1 APPLIC TOPICAL (08:07)
[2020-06-21] MEDS: ASPIRIN 81 MG CHEWABLE TABLET PO (08:07)
--- NOTE | 2020-06-21 08:07 | PM.PNPUL ---
Progress Note: A&P Assessment and Plan (1) Acute and chronic respiratory failure with hypercapnia: Code(s): J96.22 - Acute and chronic respiratory failure with hypercapnia Status: Acute Assessment and Plan: Likely multifactorial and due to RAO/OHS, cannot rule out obstructive airway disease at this time. - change BIPAP settings to 24/6 with backup rate of 18 and 40% FiO2 - has qualified to go home on BIPAP based on overnight pulse oximetry study. Subjective Date/time seen: 06/21/20 08:07 Interval history: 49 y/o morbidly obese female with history of diastolic CHF, PHTH, smokes 5-10 cigs/day for many years presents after a fall and visual hallucinations and was found to be in acute on chronic hypercapnic respiratory failure. She seems to be doing better after starting BIPAP 20/8 with backup rate of 20 and FiO2 of 40%. She's awake an alert during examination but does admit to multiple night time awakenings, napping during the day, fatigue tiredness, significant weight gain over the years. Review of Systems Review of Systems: All systems reviewed & are unremarkable except as noted in HPI and below Exam Const: General: cooperative, healthy appearing, comfortable, no acute distress, well developed, alert, awake and Physically active Nutritional Appearance: obese morbidly obese Orientation/consciousness: oriented to person, oriented to place, oriented to time and patient oriented x3 Limitations: no limitations HENMT: Head: normal to inspection, normocephalic and atraumatic Eyes: General: appearance normal, both eyes and all related structures Resp: Effort & Inspection: normal respiratory effort Auscultation: diminished lung sounds and bronchial breath sounds GI: Inspection: normal to inspection Auscultation: normal bowel sounds Skin: General skin exam: normal color and no rashes or lesions noted Neuro: General: oriented to person, oriented to place, oriented to time and patient oriented x3 Cognition (Neuro): normal cognition Speech: normal speech Extrem: General: pedal edema present Psych: Appearance: grossly normal and well kempt Mental Status: mental status grossly normal Objective Data Meds/Results Radiology Results: ITS Impressions Chest X-Ray 06/18/20 13:35 IMPRESSION: 1. Cardiomegaly with pulmonary vascular congestion. Chest CTA 06/18/20 14:33 IMPRESSION: Cardiomegaly, bilateral groundglass pulmonary infiltrates, suggesting pulmonary edema. Pneumonia is not excluded Bilateral dependent lower lobe atelectasis No evidence of pulmonary embolism Knee X-Ray 06/19/20 12:42 IMPRESSION: 1. Mild left knee osteoarthritis. 2. Small left knee joint effusion.
[2020-06-21 08:34] LABS: Anion Gap 3 mmol/L (8-16); Blood Urea Nitrogen 9 mg/dL (7-17); Calcium 8.9 mg/dL (8.4-10.2); Carbon Dioxide 36 mmol/L (22-30); Chloride 99 mmol/L (98-107); Estimated CRCL calculation 110 ml/min; Estimated Glomerular Filt Rate > 60; Glucose 230 mg/dL (65-105); Potassium 4.1 mmol/L (3.4-5.0); Sodium 138 mmol/L (137-145)
[2020-06-21 08:58] LABS: Alveolar/Arterial O2 Gradient 18.2 mmHg; Base Excess ABG 3.7 mEq/l (+/-2.0); Carboxyhemoglobin 0.8 % THb (0-2.0); Fractional Inspired Oxygen 24 %; HCO3 ABG 33.6 mEq/l (22.0-26.0); Methemoglobin ABG 0.4 %THb (0-1.5); Oxygen Content ABG 24.1 %vol (16.0-22.0); Oxyhemoglobin 91.5 % THb (90.0-100.0); PO2 ABG 68.2 mmHg (80.0-100.0); PO2 FiO2 Ratio Arterial Blood 2.84 %; Reduced Hemoglobin 7.3 %THb (0-5.0); Total Hemoglobin 18.8 g/dL (12.0-18.0); pH ABG 7.292 (7.350-7.450)
[2020-06-21 09:00] LABS: Device NASAL CANNULA; Modified Allen's Test Pass; PCO2 ABG 71.2 mmHg (35.0-45.0); Site Drawn LEFT RADIAL
[2020-06-21] MEDS: FUROSEMIDE 40 MG TABLET PO (12:02)
--- NOTE | 2020-06-21 15:23 | PCRCNOTE ---
HOME BIPAP WILL BE ARRANGED AT DISCHARGE TONIGHT WITH [facility]. CURRENTLY THE HAVE A BIPAP WITHOUT A BACKUP RATE IN STOCK TO SET UP, AND WILL ORDER THE S/T BIPAP WITH RATE, ANTICIPATED TO BE SET UP WITH BIPAP S/T ON THURSDAY, AND USE REGULAR BIPAP UNTIL THEN.
--- NOTE | 2020-06-21 16:01 | HOMEO2EVAL ---
Home Oxygen Evaluation RC: Home Oxygen (O2) Evaluation Start: 06/21/20 14:55 Freq: ONCE Status: Active Protocol: RPE Activity Type Activity Date Activity User E-Sign Co-Sign Detail Recorded Client Recorded Date Recorded By Document 06/21/20 15:30 NISHA [id number] 06/21/20 16:00 NISHA Document 06/21/20 15:35 NISHA [id number] 06/21/20 16:00 NISHA Document 06/21/20 15:45 NISHA [id number] 06/21/20 16:00 NISHA 06/21/20 06/21/20 06/21/20 15:30 15:35 15:45 Home O2 Evaluation Test Phase Resting Exercise Resting Oxygen Delivery Room Air Room Air Room Air Pulse Oximetry (90-100 %) 93 94 94 Home Oxygen Evaluation Comments PT DOES NOT QUALIFY FOR HOME O2 RESTING OR WITH EXERTION Treatment Charges O2 Evaluation
--- NOTE | 2020-06-21 16:01 | PCRCNOTE ---
DISCUSSED BIPAP SET UP TRANSITION WITH PATIENT. SHE HAS BEEN GIVEN CARE MEDICAL INFO, THEY WILL BE CALLING HER, BUT I ASKED THAT SHE CALL THE PHONE NUMBER GIVEN ONCE DISCHARGED SO THEY CAN ARRANGE A TIME THAT WORKS FOR HER.
--- NOTE | 2020-06-21 16:49 | PM.DS ---
DS: Admitting Diagnosis Admitting Diagnosis Admitting Diagnosis: acute respiratory failure with hypercapneia,chf DS: Discharge Diagnosis Discharge Diagnosis (1) Acute respiratory failure with hypoxia and hypercapnia: Code(s): J96.01 - Acute respiratory failure with hypoxia; J96.02 - Acute respiratory failure with hypercapnia Status: Acute Assessment and Plan: Patient is here with hypoxia and hypercapnia with ABG 7.199/97/129 on 4L. Patient with untreated sleep apnea with probably obesity hypoventilation syndrome. She was started on BiPAP and her ABG improved and she is feeling better. Suspect her symptoms mostly related to untreated RAO/OHS. BiPAP held and Apnea link obtained showing AHI 37.6 and RI 40. Paulo qualified for Trilogy at home and this was arranged. Weight loss encouraged. Appreciate Pulmonary input. Patient was tested for home oxygen and did not require home oxygen at this time. (2) CHF exacerbation: Qualifiers: Heart failure type: unspecified Qualified Code(s): I50.9 - Heart failure, unspecified Code(s): I50.9 - Heart failure, unspecified Status: Chronic Assessment and Plan: Her echo in January of this year showing mild LVH, EF 65% and nml diastolic function. She does have moderate pulmonary HTN with PASP 52mmHg. CTA of the chest showing no PE but does showing CMG and pulmonary edema. Patient has been noncompliant with her medication (Lasix). Good UOP with the Lasix here. She is becoming contracted so Lasix dose decreased and acetazolamide added. (3) Obstructive sleep apnea: Code(s): G47.33 - Obstructive sleep apnea (adult) (pediatric) Status: Acute Assessment and Plan: Patient is noncompliant with following up to obtain PAP treatment at home. She is having significant symptoms related to CO2 retention such as falling asleep while driving and sleep walking. As above. (4) Morbid obesity: Code(s): E66.01 - Morbid (severe) obesity due to excess calories Status: Acute Assessment and Plan: She was educated about the benefits of leading a healthy lifestyle. Drywall Finishing Foreman was consulted. (5) Tobacco abuse: Code(s): Z72.0 - Tobacco use Status: Acute Assessment and Plan: She was educated about the benefits of smoking cessation. (6) Noncompliance: Code(s): Z91.19 - Patient's noncompliance with other medical treatment and regimen Status: Acute Assessment and Plan: She has hx of noncompliance. Compliance was stressed. (7) CAD (coronary artery disease): Code(s): I25.10 - Atherosclerotic heart disease of [place] coronary artery without angina pectoris Status: Acute Assessment and Plan: Patient presumably had a myocardial infarction 4 months ago at another hospital. EKG showing QS pattern in V1 V2 possibly old septal infarct. No acute findings. Telemetry showing no significant dysrhythmias. Lipid panel noted. We started aspirin and Lipitor. (8) Diabetes mellitus: Code(s): E11.9 - Type 2 diabetes mellitus without complications Status: Acute Assessment and Plan: She was noted to have elevated glucose at times. A1c 7.0. She was informed that she has DM. Recommended daily walking for exercise as well as stressed benefits of healthy lifestyle. DS: Summary Hospital Course Reason for hospitalization: 49yo female here for respiratory failure. lease see H&P for details. Hospital Course: Please see above for details of hospital course. Status at Discharge Cognitive/behavioral status at discharge: PATIENT IS STABLE FOR DISCHARGE. Time Spent with Patient Time attestation: Total time spent providing and/or coordinating discharge services: 35 minutes Time spent: Greater than 30 minutes Exam Narrative: Exam Narrative: AF 97.0 118/75 85 20 95% Gen - NARD sitting at the side of the bed Chest - CTA bilaterally, nml RR CV - RRR
--- NOTE | 2020-06-21 17:39 | PC.NURSE ---
With discharge instructions, I stressed the importance of following the doctor's instructions of not driving. The patient acknowledge the concerns and signed her discharge papers stating she knows the risks of driving.
--- NOTE | 2020-06-22 11:55 | PC.NURSE ---
Attempted to call patient. No answer.
--- NOTE | 2020-06-25 13:18 | PC.NURSE ---
Attempted to call patient. Her phone does not accept calls from our number. Called script into [facility] in [place].
== END 2020-06-21 17:38 | disposition home or self-care (01) | DRG 133 ==
LOC: ANHED 13:45 → ANHIMU 17:11
PROVIDERS: Emergency Medicine; Internal Medicine Critical Care Medicine; Nurse Practitioner; Admitting Provider Internal Medicine; Emergency Provider Emergency Medicine; PCP Family Medicine; Visit Provider Internal Medicine
DX: J96.21 Acute and chronic respiratory failure with hypoxia (principal); J96.22 Acute and chronic respiratory failure with hypercapnia; G47.33 Obstructive sleep apnea (adult) (pediatric); E66.2 Morbid (severe) obesity with alveolar hypoventilation; Z68.43 Body mass index [BMI] 50.0-59.9, adult; Z91.19 Patient's noncompliance with other medical treatment and regimen; I50.33 Acute on chronic diastolic (congestive) heart failure; E11.9 Type 2 diabetes mellitus without complications; Z91.14 Patient's other noncompliance with medication regimen; I27.20 Pulmonary hypertension, unspecified; I25.10 Atherosclerotic heart disease of native coronary artery without angina pectoris; F17.210 Nicotine dependence, cigarettes, uncomplicated; I25.2 Old myocardial infarction
CPT/HCPCS: 36415; 36600; 71045; 71275; 73562; 80048; 80053; 80061; 82375; 82805; 83036; 83050; 83735; 83880; 84100; 84484; 85025; 85610; 85730; 93005; 94002; 94003; 94618; 94762; 96374; 97110; 97116; 97161; 97165; 99291; A9270; G0378; J1650; J1940; Q9967

== ENCOUNTER 2020-08-05 20:00 | Emergency (ER) | payer OTHER, SELFPAY ==
--- NOTE | ~2020-08-05 | XR_ITS ---
EXAMINATION: XR hip LT min 3V w AP pelvis EXAM DATE: 08/05/2020 21:20 INDICATION: Fell couple of days ago, left hip pain radiating to knee. Initial encounter. TECHNIQUE: Left hip frontal, crosstable lateral and 'frog-leg' projections for interpretation. Fronta l projection pelvis. There is no prior study for comparison. FINDINGS: Smooth left hip femoral head contour, no radiographic evidence of avascular necrosis. Ther e is mild left hip primary osteoarthritis. There are no acute fractures or dislocations identified. There is no subcutaneous gas. The soft tissue is unremarkable. There are no radiopaque foreign bod ies. IMPRESSION: Mild left hip osteoarthritis. Reviewed, dictated and finalized at location A. [employer]
[2020-08-05 20:03] VITALS: BP 144/87; PULSE 91; RESP 17; TEMP 36.4; O2SAT 95
[2020-08-05] MEDS: HYDROcodone/acetaminophen (*CRX) 7.5-325 MG TABLET 1 TAB PO (20:35)
[2020-08-05] MEDS: LIDOCAINE 5% PATCH 1 PATCH TRANSDERM (20:48)
--- NOTE | 2020-08-05 20:51 | PC.NURSE ---
Patient taken to xray.
--- NOTE | 2020-08-05 20:58 | ED.GENADULT ---
HPI - General Adult General Chief complaint: Extremity Injury, Lower Stated complaint: pain from ;left hip to left knee Time Seen by Provider: 08/05/20 20:11 Source: patient and old records reviewed Mode of arrival: ambulatory Limitations: no limitations History of Present Illness HPI narrative: Patient is a 49-year-old female who presents with left hip pain from the hip to the knee. Patient denies injury or trauma patient notes the pain is worse with any activity or movement patient has not been seen for this complaint patient presents in no distress was brought by family Related Data Home Medications Medication Instructions Recorded Confirmed B-complex with vitamin C 1 tablet PO DAILY 01/10/20 06/18/20 Warren-Plex Iron 85 mg PO DAILY 01/10/20 06/18/20 Vitamin D3 500 mg PO DAILY 01/10/20 06/18/20 Allergies Allergy/AdvReac Type Severity Reaction Status Date / Time No Known Allergies Allergy Unknown Verified 08/05/20 20:01 Review of Systems Review of Systems: All systems reviewed & are unremarkable except as noted in HPI and below PMFSH Past Medical History Medical History CHF exacerbation Diabetes mellitus Morbid obesity Obstructive sleep apnea She has not worn her CPAP for many years. Surgical History Surgical History History of tonsillectomy History of tubal ligation Family History Family History Grandparent Mental and behavioral problem Grandparent Diabetes mellitus Father Diabetes mellitus Social History Social History Social History: The patient lives in [place] with her children. She smokes about half pack of cigarettes per day. She occasionally uses marijuana. No significant alcohol use. She designates her daughter, Tamie Birmingham, as her surrogate decision maker and she wishes to be a full code. Smoking packs per day: 0.5 Smoking cigarettes per day: 10.0 Years smoked: 20 Smoking pack-years: 10.00 Smoking status: Unknown if ever smoked Tobacco type: cigarettes Alcohol intake: unknown Substance use: unknown Substance use type: marijuana Gender identity (if verbalized by the patient): Female Spiritual care concerns: No Exam Narrative: Exam Narrative: GENERAL: Well-appearing, morbidly obese, and in no acute distress. HEAD: Normocephalic, atraumatic. EYES: PERRLA and EOMI. ENT: Nares clear, no rhinorrhea or epistaxis. Mucous membranes moist. CHEST: Clear to auscultation. No respiratory distress. No wheezes rales or rhonchi HEART: Regular rate and rhythm. No murmur heard. Normal peripheral pulses. EXTREMITIES: Normal range of motion. 1+ edema bilateral lower extremities. Tenderness of the left hip no deformity no deformity at the knee remainder of extremity nontender SKIN: Warm, dry, no rash. NEURO: No focal deficits. Alert and oriented x3. Neurovascularly intact. Capillary refill less than 2 seconds PSYCH: Normal mood and affect. Course Course Emergency Course: Patient evaluated in the emergency department for her lower extremity pain will be discharged home with negative radiographs treated with medications advised to follow with primary care. Vital Signs Vital signs: Vital Signs Temperature 97.6 F 08/05/20 20:03 Pulse Rate 91 08/05/20 20:03 Respiratory Rate 17 08/05/20 20:03 Blood Pressure 144/87 H 08/05/20 20:03 Pulse Oximetry 95 08/05/20 20:03 Temperature 97.6 F 08/05/20 20:03 Pulse Rate 91 08/05/20 20:03 Respiratory Rate 17 08/05/20 20:03 Blood Pressure 144/87 H 08/05/20 20:03 Pulse Oximetry 95 08/05/20 20:03 Medical Decision Making MDM Narrative Medical decision making narrative: Patients injury or pain is consistent with musculoskeletal etiology. No signs of neurological or
== END 2020-08-05 21:43 | disposition home or self-care (01) ==
PROVIDERS: Emergency Provider Emergency Medicine; PCP Family Medicine
DX: M25.552 Pain in left hip (principal); I50.9 Heart failure, unspecified; E11.9 Type 2 diabetes mellitus without complications; G47.33 Obstructive sleep apnea (adult) (pediatric); E66.01 Morbid (severe) obesity due to excess calories; Z68.41 Body mass index [BMI] 40.0-44.9, adult; F17.210 Nicotine dependence, cigarettes, uncomplicated
CPT/HCPCS: 73502; 99283; A9270

== ENCOUNTER 2020-10-15 09:48 | Outpatient (CLI) | payer OTHER, SELFPAY ==
--- NOTE | 2020-10-15 | ECHO_ITS ---
Patient Info Name: Watson Catalan Age: 49 years : 1970 Gender: Female Ht: 65 in Wt: 270 lbs BSA: 2.44 m2 HR: 88 bpm BP: 130 / 83 mmHg Heart Rhythm: Sinus Rhythm Technical Quality: Good Exam Date: 10/15/2020 10:18 AM Exam Location: [facility] Patient Status: Outpatient Admit Date: 10/15/2020 Staff Ordering Physician: Rhona, Nika Weller NP Housekeeper/Custodian/Laundry Worker: Teto Wilson RDCS, RT Attending Provider: Rhona, Nika Weller NP Referring Physician: Rhona BRIDGES; Exam Type: CA echo doppler color flow Study Info Indications I50.9 - Heart failure, unspecified Complete two-dimensional, color flow and Doppler transthoracic echocardiogram is performed. Strain analysis performed. Summary 1. Complete two-dimensional, color flow and Doppler transthoracic echocardiogram is performed. 2. Left ventricular systolic function is normal, estimated at 55-60%. 3. There is moderately increased left ventricular wall thickness. 4. Left ventricular septal wall motion is abnormal with septal motion related to bundle branch block. 5. Right ventricular systolic function is reduced. 6. Right ventricular chamber dimension is normal. 7. Left atrial chamber dimension is mildly enlarged. 8. Right atrial chamber dimension is mildly enlarged. 9. There is trace mitral valve regurgitation. 10. There is mild tricuspid valve regurgitation. 11. Moderate pulmonary hypertension, estimated pulmonary arterial systolic pressure is 58 mmHg. Left Ventricle Left ventricular chamber dimension is normal. Left ventricular systolic function is normal, estimated at 55-60%. There is moderately increased left ventricular wall thickness. Left ventricular septal wall motion is abnormal with septal motion related to bundle branch block. The left ventricular diastolic function is normal. Global longitudinal strain is mildly elevated at -14 %. Right Ventricle Right ventricular chamber dimension is normal. Right ventricular systolic function is reduced. Prominent moderator band. Left Atria Left atrial chamber dimension is mildly enlarged. Right Atria Right atrial chamber dimension is mildly enlarged. Aortic Valve The aortic valve is not well visualized. There is no aortic valve stenosis. There is no aortic valve regurgitation. Pulmonic Valve The pulmonic valve is not well visualized. There is trace pulmonic regurgitation. Mitral Valve The mitral valve has normal leaflets. There is trace mitral valve regurgitation. The mitral valve annulus is mildly calcified. Tricuspid Valve The tricuspid valve leaflets are normal. There is mild tricuspid valve regurgitation. Moderate pulmonary hypertension, estimated pulmonary arterial systolic pressure is 58 mmHg. Pericardium/Pleural The pericardium appears not well visualized. There is trivial pericardial effusion. Inferior Vena Cava Dilated inferior vena cava with >50% collapse upon inspiration consistent with elevated right atrial pressure, 10 mmHg. Aorta The aortic root size at the sinus of Valsalva is normal. Left Ventricular Outflow Tract Name Value Normal LVOT 2D LVOT Diameter 2.0 cm LVOT Doppler
== END 2020-10-15 09:49 | disposition home or self-care (01) ==
PROVIDERS: PCP Family Medicine; Visit Provider Family Medicine
DX: I50.9 Heart failure, unspecified (principal); I36.1 Nonrheumatic tricuspid (valve) insufficiency; I27.20 Pulmonary hypertension, unspecified
CPT/HCPCS: 93306

== ENCOUNTER 2021-08-13 12:09 | Emergency (ER) | payer OTHER, SELFPAY ==
[2021-08-13 12:34] VITALS: BP 125/70; PULSE 96; RESP 24; TEMP 36.9; O2SAT 94
== END 2021-08-13 13:36 | disposition left against medical advice (07) ==
LOC: ANHED 15:09
PROVIDERS: PCP Family Medicine
DX: R06.02 Shortness of breath (principal)
CPT/HCPCS: 99199

== ENCOUNTER 2022-10-19 16:26 | Inpatient (IN) | payer OTHER, SELFPAY ==
[2022-10-19] VITALS (18 sets, daily range): BP systolic 127–162; BP diastolic 81–98; PULSE 92–114; RESP 15–27; O2SAT 8–100
--- NOTE | ~2022-10-19 | XR_ITS ---
Portable chest x-ray Comparison: 10/19/2022 at 6:03 PM Clinical History: Tube placement Findings: Endotracheal tube in satisfactory position. Extensive groundglass pulmonary consolidation is unchanged. Cardiomediastinal silhouette is stable. Bones and soft tissues are unremarkable. Impression: ET tube in satisfactory position. Extensive groundglass pulmonary consolidation. Correlate for pulmonary edema or infection. Reviewed, dictated and finalized at [facility]. Impression: ET tube in satisfactory position. Extensive groundglass pulmonary consolidation. Correlate for pulmonary edema or infection.
--- NOTE | ~2022-10-19 | XR_ITS ---
Portable chest x-ray Comparison: 10/19/2022 Clinical History: Tube placement Findings: Endotracheal tube and NG tube are in satisfactory positions. There is extensive left lower lobe consolidation with a more hazy airspace disease in the remainder of the lungs. Possible small l eft pleural effusion. Cardiomediastinal silhouette is stable. Bones and soft tissues are unremarkabl e. Impression: Extensive bilateral airspace consolidation, most confluent at the left lower lobe. Correlate for pulm onary edema/atelectasis versus infection. Possible small left pleural effusion. Support tubes, as above. Reviewed, dictated and finalized at location . Impression: Extensive bilateral airspace consolidation, most confluent at the left lower lo be. Correlate for pulmonary edema/atelectasis versus infection. Possible small left pleural effusion. Support tubes, as above.
--- NOTE | ~2022-10-19 | XR_ITS ---
Portable chest x-ray Comparison: 10/20/2022 Clinical History: Placement Findings: Endotracheal tube and NG tube are in satisfactory positions. Left lower lobe consolidation is present. There is mild haziness in the remainder of the lungs. Cardiomediastinal silhouette is s table. Bones and soft tissues are unremarkable. Impression: Left lower lobe consolidation with mild haziness in the remainder of the lungs. Correlate for pulmona ry edema/atelectasis versus infection. Support tubes, as above. Reviewed, dictated and finalized at location . Impression: Left lower lobe consolidation with mild haziness in the remainder of the lungs. Correlate for pulmonary edema/atelectasis versus infection. Support tubes, as above.
--- NOTE | ~2022-10-19 | XR_ITS ---
Supine portable view of the abdomen Clinical history: NG tube placement Findings: NG tube in satisfactory position. There is marked air distention of the stomach. Remaining bowel loops are unremarkable. No abnormal mass lesion or calcification is seen. Osseous structures ar e intact. Impression: NG tube in place with marked air distention of the stomach. Reviewed, dictated and finalized at location . Impression: NG tube in place with marked air distention of the stomach.
--- NOTE | ~2022-10-19 | XR_ITS ---
EXAMINATION: XR chest 1V portable Exam Date/Time: 10/19/2022 18:00 CDT HISTORY: shortness of breath. PT ON BIPAP. HX SLEEP APNEA Comparison: 06/18/2020. RESULT: Lines, tubes, and devices: None. Lungs and pleura: Left basilar opacity with likely left lower lobe atelectasis. Subsegmental basilar airspace disease in the right lower lung. Left lateral costophrenic angle blunting. Cardiomediastinal silhouette: Stable. Other: No acute osseous or upper abdominal finding. IMPRESSION: Question of left lower lobe atelectasis, consider mucous plugging. Bibasilar atelectasis/consolidatio n. Possible small left pleural effusion. Reviewed, dictated and finalized at location K. IMPRESSION: Question of left lower lobe atelectasis, consider mucous plugging. Bibasilar at electasis/consolidation. Possible small left pleural effusion.
--- NOTE | ~2022-10-19 | XR_ITS ---
Portable chest x-ray Comparison: 10/23/2022 Clinical History: Tube placement Findings: Endotracheal tube, NG tube, and left-sided PICC line are in satisfactory positions. Probab le minimal left pleural effusion with left basilar consolidation. There is improving haziness in the lungs otherwise. Cardiomediastinal silhouette is stable. Bones and soft tissues are unremarkable. Impression: Small left pleural effusion with left basilar atelectasis or pneumonia. Significantly improved groundglass disease in the remainder of the lungs. Support tubes, as above. Reviewed, dictated and finalized at location M. Impression: Small left pleural effusion with left basilar atelectasis or pneumonia. Significantly improved groundglass disease in the remainder of the lungs. Support tubes, as above.
--- NOTE | ~2022-10-19 | XR_ITS ---
EXAMINATION: XR chest 1V portable INDICATION: Respiratory failure TECHNIQUE: Portable AP chest at 0508 hours COMPARISON: 10/24/2022 FINDINGS: The endotracheal tube ends approximately 6.1 cm above the jennifer. The nasogastric tube is f ollowed as far as the stomach. Its tip is beyond the inferior margin of the radiograph. A left upper extremity PICC ends with its tip in the distal superior vena cava. Diffuse bilateral airspace opaciti es persist with interval improvement. There is a small left pleural effusion with interval improvemen t. The cardiomediastinal silhouette is stable. There is no pneumothorax. IMPRESSION: 1. Diffuse lung disease with interval improvement, consistent with pneumonia and/or pulmonary edema. 2. Small left pleural effusion, decreased in size. Reviewed, dictated and finalized at location A. IMPRESSION: 1. Diffuse lung disease with interval improvement, consistent with pneumonia an d/or pulmonary edema. 2. Small left pleural effusion, decreased in size.
--- NOTE | ~2022-10-19 | CT_ITS ---
EXAMINATION:CT diagnostic chest w con DATE: 10/21/2022 10:54 INDICATION: Bilateral infiltrates. TECHNIQUE: Computed tomography (CT) of the chest was performed with 75 mL Omnipaque 350 intravenous c ontrast. Automated exposure control and iterative reconstruction technique were employed. The dose-le ngth product (DLP) was 937.73 mGy-cm. COMPARISON: Chest CT 06/18/2020, 09/23/13 FINDINGS: There are dependent airspace opacities in the lungs with volume loss bilateral predominantl y involving the lower lobes. There are trace pleural effusions. Cardiomegaly is noted. No pericardial effusion. The central pulmonary arteries are enlarged, consistent with pulmonary arterial hypertensi on. There is no pulmonary embolus. The endotracheal tube tip is in expected position. The nasogastric tube tip is beyond the inferior margin of the radiograph, but at least to the stomach. There is a ch ronic 2.5 cm mass in right adrenal gland measuring soft tissue attenuation, likely an adenoma. There is a chronic 4.2 cm mass in left adrenal gland measuring soft tissue attenuation, likely an adenoma. There is mild thoracic spondylosis. A left upper extremity peripherally inserted central venous katty ter (PICC) is seen with tip in the left brachiocephalic vein. IMPRESSION: 1. No pulmonary embolus. Sensitivity is mildly decreased by motion artifact. 2. Dependent airspace opacities in the lungs with volume loss predominantly involving the lower lobes , consistent with atelectasis versus pneumonia. 3. Cardiomegaly. Reviewed, dictated and finalized at location A. IMPRESSION: 1. No pulmonary embolus. Sensitivity is mildly decreased by motion artifact. 2. Dependent airspace opacities in the lungs with volume loss predominantly inv olving the lower lobes, consistent with atelectasis versus pneumonia. 3. Cardiomegaly.
--- NOTE | ~2022-10-19 | XR_ITS ---
Portable chest x-ray Comparison: 10/21/2022 Clinical History: Tube placement Findings: Endotracheal tube, NG tube, and left-sided PICC line remain in place. Probable small left pleural effusion with extensive groundglass pulmonary disease and more confluent left basilar consoli dation. Cardiomediastinal silhouette is stable. Bones and soft tissues are unremarkable. Impression: Extensive bilateral pulmonary disease, most confluent at the left lower lobe region. Correlate for pu lmonary edema/atelectasis versus pneumonia. Possible small left pleural effusion. Support tubes, as above. Reviewed, dictated and finalized at location . Impression: Extensive bilateral pulmonary disease, most confluent at the left lower lobe re gion. Correlate for pulmonary edema/atelectasis versus pneumonia. Possible small left pleural effusion. Support tubes, as above.
--- NOTE | ~2022-10-19 | XR_ITS ---
EXAMINATION: XR abdomen NG/feed tube insert DATE: 10/25/2022 18:23 INDICATION: Orogastric tube insertion TECHNIQUE: A supine view of the abdomen and lower chest was obtained for evaluation of feeding tube placement on 3 radiographs. COMPARISON: 10/19/2022 and 10/24/2022 FINDINGS: Nasogastric tube tip in proximal side port in the body of the stomach. Endotracheal tube tip 6.2 cm a vinod the jennifer. Moderate amount of gas scattered throughout the colon. No dilated gas-filled loops o f bowel to suggest obstruction. Retrocardiac airspace opacities with air bronchograms in the left low er lung zone. Left upper extremity peripherally inserted central venous catheter (PICC) tip at the c audal superior vena cava. IMPRESSION: 1. Gastric tube in the stomach. 2. Endotracheal tube tip 6.2 cm above the jennifer. Consider advancement by 4 cm. 3. Airspace opacities with air bronchograms in the left lower lung zone which could represent atelect asis or pneumonia. Reviewed, dictated and finalized at location [facility]. IMPRESSION: 1. Gastric tube in the stomach. 2. Endotracheal tube tip 6.2 cm above the jennifer. Consider advancement by 4 cm. 3. Airspace opacities with air bronchograms in the left lower lung zone which c ould represent atelectasis or pneumonia.
--- NOTE | ~2022-10-19 | XR_ITS ---
Portable chest x-ray Comparison: 10/22/2022 Clinical History: Tube placement Findings: Endotracheal tube, NG tube, and left-sided PICC line remain in place. Probable small left pleural effusion. There is moderate pulmonary edema pattern. Cardiomediastinal silhouette is stable. Bones and soft tissues are unremarkable. Impression: Small left pleural effusion with moderate pulmonary edema pattern. Correlate clinically for infection . Support tubes, as above. Reviewed, dictated and finalized at [facility]. Impression: Small left pleural effusion with moderate pulmonary edema pattern. Correlate cl inically for infection. Support tubes, as above.
--- NOTE | 2022-10-19 16:27 | ECG_ITS ---
Measurements Intervals [place] Rate: 97 P: 60 NE: 152 QRS: 101 QRSD: 86 T: 19 QT: 334 QTc: 426 Interpretive Statements SINUS RHYTHM LEFT ATRIAL ENLARGEMENT RIGHT AXIS DEVIATION BORDERLINE ECG COMPARED TO ECG 06/18/2020 11:50:52 NO SIGNIFICANT CHANGES Electronically Signed On 10-20-2022 16:51:58 CDT by Wu Riggins M.D.
[2022-10-19 16:58] LABS: Alveolar/Arterial O2 Gradient 205.1 mmHg; Base Excess ABG 10.9 mEq/l (+/-2.0); Fractional Inspired Oxygen 50 %; HCO3 ABG 41.5 mEq/l (22.0-26.0); Methemoglobin ABG 0.1 %THb (0-1.5); Oxygen Content ABG 17.9 %vol (16.0-22.0); PO2 ABG 57.5 mmHg (80.0-100.0); PO2 FiO2 Ratio Arterial Blood 1.15 %; Reduced Hemoglobin 9.4 %THb (0-5.0); Total Hemoglobin 16.1 g/dL (12.0-18.0); pH ABG 7.314 (7.350-7.450)
[2022-10-19 16:58] LABS: Basophils Percent Auto 0.3 % (0.2-1.2); Eosinophils Percent Auto 0.3 % (0-4.4); Hematocrit 48.9 % (37.0-47.0); Hemoglobin 15.5 g/dL (12.0-15.0); Immature Granulocyte Absolute 0.04 K/mm3 (0.00-0.031); Immature Granulocyte Percent A 0.4 % (0-0.5); Lymphocytes Absolute Auto 2.14 K/mm3 (0.9-3.2); Lymphocytes Percent Auto 23.5 % (18.3-44.2); Mean Corpuscular HGB Conc 31.7 g/dl (32-36); Mean Corpuscular Hemoglobin 28.8 pg (26-34); Mean Corpuscular Volume 90.7 fl (80-100); Mean Platelet Volume 9.8 fl (7.4-10.4); Monocytes Absolute Auto 0.6 K/mm3 (0.1-0.6); Monocytes Percent Auto 6.8 % (2.6-8.5); Neutrophils Absolute Auto 6.3 K/mm3 (1.3-6.7); Neutrophils Percent Auto 68.7 % (45.5-73.1); Nucleated Red Blood Cells Absolute Auto 0.1 K/mm3 (0.0-0.012); Nucleated Red Blood Cells Perc 1.2 % (0.0-0.2); Platelet Count Result 223 k/mm3 (150-375); Red Blood Count 5.39 M/mm3 (4.2-5.4); Red Cell Distribution Width 16.5 % (11.5-14.5); White Blood Count 9.1 K/mm3 (4.5-10.0)
[2022-10-19 17:00] LABS: PCO2 ABG 83.5 mmHg (35.0-45.0)
[2022-10-19 17:01] LABS: Oxygen Saturation ABG 85.9 % (95.0-100.0); Oxyhemoglobin 79.4 % THb (90.0-100.0)
--- NOTE | 2022-10-19 17:01 | ED.SOB ---
HPI - SOB/Dyspnea General Chief Complaint: Shortness of Breath/Dyspnea Stated Complaint: SOB Time Seen by Provider: 10/19/22 17:00 Source: family Mode of arrival: ambulatory Limitations: no limitations History of Present Illness HPI Narrative: 51 years old -Citizen Of [place] female brought to the emergency room by private car with her son who is telling me that patient smokes like chimney, does not take her medications, been off oxygen for the last 2 weeks, 2-4 L/min, been to [facility] numerous of time, last 1 was 2 to 3 weeks ago, for the same complaint of shortness of breath. History me that she have history of COPD, CHF, pulmonary hypertension, noncompliance with medication and follow-up, obstructive sleep apnea, tobacco abuse, coronary artery disease and diabetes. Patient is telling me and the nurse that she is DNR. Does not like to be intubated or resuscitated Related Data Home Medications Medication Instructions Recorded Confirmed B-complex with vitamin C 1 tablet PO DAILY 01/10/20 06/18/20 Warren-Plex Iron 85 mg PO DAILY 01/10/20 06/18/20 Vitamin D3 500 mg PO DAILY 01/10/20 06/18/20 Allergies Allergy/AdvReac Type Severity Reaction Status Date / Time No Known Allergies Allergy Unknown Verified 10/19/22 16:26 Review of Systems Review of Systems: All systems reviewed & are unremarkable except as noted in HPI and below PMFSH Past Medical History Medical History CHF exacerbation Diabetes mellitus Morbid obesity Obstructive sleep apnea She has not worn her CPAP for many years. Surgical History Surgical History History of tonsillectomy History of tubal ligation Family History Family History Grandparent Mental and behavioral problem Grandparent Diabetes mellitus Father Diabetes mellitus Social History Social History Social History: The patient lives in [place] with her children. She smokes about half pack of cigarettes per day. She occasionally uses marijuana. No significant alcohol use. She designates her daughter, Tamie Birmingham, as her surrogate decision maker and she wishes to be a full code. Smoking packs per day: 0.5 Smoking cigarettes per day: 10.0 Years smoked: 20 Smoking pack-years: 10.00 Smoking status: Unknown if ever smoked Tobacco type: cigarettes Alcohol intake: unknown Substance use: unknown Substance use type: marijuana Gender identity (if verbalized by the patient): Female Spiritual care concerns: No Exam Narrative: General appearance: Well-developed, well-nourished, obese e Skin: Normal color Head: Normocephalic, nontraumatic Eyes: Clear conjunctiva ENT: Oropharynx normal, ears normal, nose normal Neck: Supple, nontender Chest and respiratory: Airway patent, diffuse diminution of air entry bilaterally, few scattered rhonchi and wheezing Heart: Regular rate/rhythm Abdomen: Soft, nontender, no organomegaly, quiet bowel sounds Vascular: Normal peripheral pulses, normal capillary refill. Musculoskeletal: Normal range of motion, nontender back Neurologic: Alert and oriented ?3, WEED ERADICATOR is normal as tested, no gross motor deficit Course Reevaluation(s) Reevaluation #1: Patient failed BiPAP attempts, was restless, less responsive, the plan to intubate was ordered. Patient tolerated intubation well. Date: 10/19/22 Time: 23:36 Vital Signs Vital signs: Vital Signs Pulse Rate 100 10/19/22 16:53 Pulse Rate 98 10/19/22 22:02 Respiratory Rate 25
[2022-10-19 17:02] LABS: Carboxyhemoglobin 11.1 % THb (0-2.0); Device NASAL CANNULA; Modified Allen's Test Pass; Site Drawn LEFT RADIAL
[2022-10-19 17:11] LABS: Alanine Aminotransferase 25 U/L (6-35); Albumin Level 3.9 g/dL (3.5-5.1); Alkaline Phosphatase 116 U/L (38-126); Aspartate Amino Transferase 21 U/L (14-36); Bilirubin,Total 0.7 mg/dL (0.2-1.3); Blood Urea Nitrogen 7 mg/dL (7-17); Calcium 8.6 mg/dL (8.4-10.2); Carbon Dioxide > 40 mmol/L (22-30); Chloride 97 mmol/L (98-107); Estimated CRCL calculation 122 ml/min; Estimated Glomerular Filt Rate > 60; Glucose 224 mg/dL (65-110); Potassium 3.5 mmol/L (3.4-5.0); Sodium 140 mmol/L (137-145)
[2022-10-19 17:27] LABS: Prothrombin Time 12.8 Seconds (11.1-14.7)
[2022-10-19 17:37] LABS: NT Pro B Type Natriuretic Pept 320 pg/mL (19.9-100); Troponin I < 0.012 ng/mL (0.000-0.034)
[2022-10-19 17:55] LABS: Alveolar/Arterial O2 Gradient 226.7 mmHg; Base Excess ABG 13.1 mEq/l (+/-2.0); Fractional Inspired Oxygen 100 %; HCO3 ABG 46.7 mEq/l (22.0-26.0); Methemoglobin ABG 0.2 %THb (0-1.5); Oxygen Content ABG 21.5 %vol (16.0-22.0); Oxygen Saturation ABG 99.7 % (95.0-100.0); Oxyhemoglobin 89.8 % THb (90.0-100.0); PO2 ABG 374.2 mmHg (80.0-100.0); PO2 FiO2 Ratio Arterial Blood 3.74 %; Total Hemoglobin 16.3 g/dL (12.0-18.0)
[2022-10-19 17:58] LABS: Device NON-INVASIVE VENT; Modified Allen's Test Pass; PCO2 ABG 112.1 mmHg (35.0-45.0); Site Drawn LEFT RADIAL; pH ABG 7.238 (7.350-7.450)
[2022-10-19 17:59] LABS: Non-Invasive Expiratory Pressure 6 CMH2O; Non-Invasive Inspiratory Pressure 16 CMH2O; Non-Invasive Vent Rate 22 /MIN
--- NOTE | 2022-10-19 19:22 | PC.NURSE ---
Pt is more alert, able to talk still having hard time finding the word, still very confuse.
[2022-10-19 20:28] LABS: Alveolar/Arterial O2 Gradient 181.5 mmHg; Base Excess ABG 10.4 mEq/l (+/-2.0); Carboxyhemoglobin 7.7 % THb (0-2.0); Fractional Inspired Oxygen 50 %; Methemoglobin ABG 0.3 %THb (0-1.5); Oxygen Content ABG 19.4 %vol (16.0-22.0); Oxygen Saturation ABG 90.9 % (95.0-100.0); PO2 ABG 70.6 mmHg (80.0-100.0); PO2 FiO2 Ratio Arterial Blood 1.41 %; Reduced Hemoglobin 5.7 %THb (0-5.0)
[2022-10-19 20:31] LABS: pH ABG 7.274 (7.350-7.450)
[2022-10-19 20:32] LABS: PCO2 ABG 92.8 mmHg (35.0-45.0)
[2022-10-19 20:33] LABS: Modified Allen's Test Pass; Oxyhemoglobin 86.3 % THb (90.0-100.0); Site Drawn RIGHT RADIAL
[2022-10-19 20:34] LABS: Device BIPAP
[2022-10-19 20:35] LABS: Expiratory Pressure 10 cmH2O; Inspiratory Pressure 20 cmH2O
[2022-10-19 21:01] LABS: Troponin I 0.013 ng/mL (0.000-0.034)
--- NOTE | 2022-10-19 21:44 | PC.NURSE ---
Pt arousable, but lethargic, upright on stretcher. BiPAP in place
--- NOTE | 2022-10-19 22:20 | PC.NURSE ---
2222 - Pt uncooperative, restless on stretcher, unable to keep head upright. EDP macy at bedside for intubation.
--- NOTE | 2022-10-19 22:47 | PM.IMHP ---
H&P: HPI History of Present Illness Date/Time: 10/19/22 22:47 Chief Complaint: Altered mental status Narrative: This is a 51-year-old female with past medical history significant for morbid obesity, obstructive sleep apnea, tobacco dependence. Patient was brought to the emergency room by her son due to concerns regarding patient's noncompliance with treatment and deteriorating health status multiple visits to emergency room on hospitalizations recently. In emergency room preliminary workup was significant for ABG with a pCO2 of 83 initially patient refused ventilator support but eventually patient on BiPAP progressively got worse repeat ABG showed a pCO2 of 112 patient became unarousable minimally responsive, decision was made to place patient on ventilator support. Patient is now on ventilator support in intensive care unit. At the time of my visit patient was already on ventilator history has been mainly obtained upon reviewing medical records and discussion with emergency room doctor. A chest x-ray was reported as: RESULT: Lines, tubes, and devices:? None. Lungs and pleura:? Left basilar opacity with likely left lower lobe atelectasis. Subsegmental basilar airspace disease in the right lower lung. Left lateral costophrenic angle blunting. Cardiomediastinal silhouette:? Stable. Other:? No acute osseous or upper abdominal finding. ? IMPRESSION: Question of left lower lobe atelectasis, consider mucous plugging. Bibasilar atelectasis/consolidation. Possible small left pleural effusion. Review of Systems Review of Systems: ROS unobtainable: Yes unobtainable due to endotracheal tube and unobtainable due to mental status (Obtundation) [facility] Past Medical History Medical History CHF exacerbation Diabetes mellitus Morbid obesity Obstructive sleep apnea She has not worn her CPAP for many years. Surgical History Surgical History History of tonsillectomy History of tubal ligation Family History Family History Grandparent Mental and behavioral problem Grandparent Diabetes mellitus Father Diabetes mellitus Social History Social History Social History: The patient lives in [place] with her children. She smokes about half pack of cigarettes per day. She occasionally uses marijuana. No significant alcohol use. She designates her daughter, Tamie [place], as her surrogate decision maker and she wishes to be a full code. Smoking packs per day: 0.5 Smoking cigarettes per day: 10.0 Years smoked: 20 Smoking pack-years: 10.00 Smoking status: Current every day smoker Tobacco type: cigarettes Additional smoking assessment comments: unknown current PPD Alcohol intake: unknown Substance use: unknown Substance use type: marijuana Gender identity (if verbalized by the patient): Female Spiritual care concerns: No Meds Home Medications and Allergies Home Medications Medication Instructions Recorded Confirmed Type aspirin 81 mg chewable tablet 81 mg PO DAILY@0800 #30 tabs 06/21/20 10/20/22 Rx (Children's Aspirin) atorvastatin 40 mg tablet 40 mg PO DAILY #30 tabs 06/21/20 10/20/22 Rx albuterol sulfate 90 mcg/actuation 2 inh inhalation Q6H PRN Shortness 10/20/22 10/20/22 History aerosol inhaler Of Breath Or Wheezing amlodipine 5 mg tablet 5 mg PO DAILY 10/20/22 10/20/22 History budesonide-formoterol HFA 160 2 inh inhalation DAILY 10/20/22 10/20/22 History mcg-4.5 mcg/actuation aerosol inhaler (Symbicort) duloxetine 60 mg capsule,delayed 60 mg PO DAILY 10/20/22 10/20/22 History release furosemide 40 mg tablet 40 mg PO BID 10/20/22 10/20/22 History montelukast 10 mg tablet 10 mg PO DAILY 10/20/22 10/20/22 History Allergies Allergy/AdvReac Type Severity Reac
[2022-10-19] MEDS: PROPOFOL IV EMULSION 100 ML 3.36 MG IV CONT (22:55)
[2022-10-19] MEDS: MIDAZOLAM HCL (*CRX) 2 MG/2 ML VIAL 4 MG (23:15)
--- NOTE | 2022-10-19 23:15 | PC.NURSE ---
Pt moving extremities, reaching for wires. 4mg IVP Versed per EDP Gallegos given
[2022-10-19] MEDS: MIDAZOLAM HCL (*CRX) 2 MG/2 ML VIAL 4 MG IV PUSH (23:55)
[2022-10-20] VITALS (57 sets, daily range): BP systolic 95–129; BP diastolic 50–78; PULSE 67–95; RESP 13–26; TEMP 37–37.9; O2SAT 90–98; BMI 42.7
--- NOTE | 2022-10-20 | ECHO_ITS ---
Patient Info Name: Watson Catalan Age: 51 years : 1970 Gender: Female Ht: 66 in Wt: 264 lbs BSA: 2.42 m2 HR: 79 bpm BP: 127 / 68 mmHg Heart Rhythm: Sinus Rhythm Exam Date: 10/20/2022 10:09 AM Exam Location: [facility] Pulmonary Patient Status: Inpatient Admit Date: 10/19/2022 Staff Ordering Physician: Kendell Mcclure MD Environmental Health And Safety Leader: Teto Wilson, KAYDEN, RT Attending Provider: Tim Mckeon MD Referring Physician: Ren GUIDO; Exam Type: CA echo doppler color flow Study Info Indications I50.9 - Heart failure, unspecified Complete two-dimensional, color flow and Doppler transthoracic echocardiogram is performed. Summary 1. Complete two-dimensional, color flow and Doppler transthoracic echocardiogram is performed. 2. Technically difficult study with limited views. Regional wall motion assessment limited due to poor endomyocardial border definition. 3. Left ventricular chamber dimension is normal. 4. Left ventricular systolic function is normal, estimated at 60-65%. 5. There is moderate concentric increased left ventricular wall thickness. 6. Left ventricular septal wall motion is abnormal with septal motion related to bundle branch block. 7. The left ventricular diastolic function is grade I diastolic dysfunction. 8. There is trace mitral valve regurgitation. Left Ventricle Left ventricular chamber dimension is normal. Left ventricular systolic function is normal, estimated at 60-65%. There is moderate concentric increased left ventricular wall thickness. Left ventricular septal wall motion is abnormal with septal motion related to bundle branch block. The left ventricular diastolic function is grade I diastolic dysfunction. Technically difficult study with limited views. Regional wall motion assessment limited due to poor endomyocardial border definition. Right Ventricle Right ventricular chamber dimension is mildly enlarged. Right ventricular systolic function is normal. Left Atria Left atrial chamber dimension is normal. Right Atria Right atrial chamber dimension is normal. Aortic Valve The aortic valve is not well visualized. There is no aortic valve stenosis. There is no aortic valve regurgitation. Pulmonic Valve The pulmonic valve is not well visualized. Mitral Valve The mitral valve has normal leaflets. There is trace mitral valve regurgitation. Tricuspid Valve The tricuspid valve leaflets are normal. There is trace tricuspid valve regurgitation. Unable to assess PA systolic pressure due to poor spectral resolution of tricuspid regurgitant jet velocity. Pericardium/Pleural The pericardium appears normal. There is trivial pericardial effusion. Inferior Vena Cava Normal inferior vena cava with >50% collapse upon inspiration consistent with normal right atrial pressure, 5 mmHg. Aorta The aortic root size at the sinus of Valsalva is normal. There is mild aortic atherosclerosis. Left Ventricular Outflow Tract Name Value Normal LVOT 2D LVOT Diameter 2.0 cm LVOT Doppler LVOT Peak Gradient 3 mmHg LVOT Mean Gradient
[2022-10-20] MEDS: methylPREDNISolone SOD SUCC 125 MG VIAL IV PUSH (00:04)
[2022-10-20] MEDS: PIPERACILLIN/TAZOBACTAM SOD 4.5 GM in SODIUM CHLORIDE 0.9% IV 100 ML 200 ML IVPB ×4 (00:06→17:25)
[2022-10-20 00:33] LABS: Alveolar/Arterial O2 Gradient 541.5 mmHg; Base Excess ABG 8.5 mEq/l (+/-2.0); Fractional Inspired Oxygen 100 %; HCO3 ABG 37.6 mEq/l (22.0-26.0); Oxygen Content ABG 19.9 %vol (16.0-22.0); Oxygen Saturation ABG 96.9 % (95.0-100.0); PO2 ABG 99.4 mmHg (80.0-100.0); PO2 FiO2 Ratio Arterial Blood 0.99 %; Total Hemoglobin 15.3 g/dL (12.0-18.0); pH ABG 7.335 (7.350-7.450)
[2022-10-20 00:37] LABS: Device VENTILATOR; Modified Allen's Test Pass; PCO2 ABG 72.1 mmHg (35.0-45.0); Site Drawn RIGHT RADIAL
[2022-10-20 00:38] LABS: Arterial Blood Gas PEEP 5 cmH2O; Arterial Blood Gas Tidal Volume 460 ml; Arterial Blood Gas Vent Mode CMV; Arterial Blood Gas Ventilator rate 16 /MIN
--- NOTE | 2022-10-20 00:55 | ADMGEN ---
This patient, Watson Catalan, was admitted to Intensive Care Unit-5. Patient/family oriented to hospital policies and general routines including ID bracelet, bed and alarms, visiting hours, pain management, procedures, bathroom and other care routines, personal items, smoking policy, room service/diet, and visiting hours. Information on how to activate the Rapid Response Team has been discussed. Patient/Family are encouraged to report perceived risks to care and to ask questions if they do not understand what they are told or what they should do.
[2022-10-20] MEDS: FENTANYL 2,500MCG/NS250ML(*CRX 2,500 MCG/250 ML BAG 10 MCG IV CONT (01:00)
[2022-10-20] MEDS: MIDAZOLAM 100MG/NS 100ML(*CRX) 100 MG/100 ML BAG IV CONT (01:00)
--- NOTE | 2022-10-20 01:59 | PC.NURSE ---
2225 - IV found to be infiltrated, new line started (20g L hand). 2228 - 100mg succinylcholine and 2mg Versed given for sedation. EDP Gallegos and respiratory at bedside, ready for intubation. 2230 - intubation unsuccessful, pt bagged using BVM. Pt moving extremities. Per [facility] EDP Gallegos, 100mg succinylcholine given at this time. 2233 - Nasopharyngeal airway placed in rt nare. 2234 - Successful intubation. 71/2 ET tube 24 at the lip
[2022-10-20 02:03] LABS: Troponin I < 0.012 ng/mL (0.000-0.034)
[2022-10-20 02:15] LABS: Triglycerides 124 mg/dL (<150)
[2022-10-20 04:27] LABS: Basophils Percent Auto 0.4 % (0.2-1.2); Hematocrit 47.4 % (37.0-47.0); Hemoglobin 14.9 g/dL (12.0-15.0); Immature Granulocyte Absolute 0.05 K/mm3 (0.00-0.031); Immature Granulocyte Percent A 0.4 % (0-0.5); Lymphocytes Absolute Auto 0.95 K/mm3 (0.9-3.2); Lymphocytes Percent Auto 8.3 % (18.3-44.2); Mean Corpuscular HGB Conc 31.4 g/dl (32-36); Mean Corpuscular Hemoglobin 28.3 pg (26-34); Mean Corpuscular Volume 89.9 fl (80-100); Mean Platelet Volume 9.9 fl (7.4-10.4); Monocytes Absolute Auto 0.2 K/mm3 (0.1-0.6); Monocytes Percent Auto 1.9 % (2.6-8.5); Neutrophils Absolute Auto 10.1 K/mm3 (1.3-6.7); Nucleated Red Blood Cells Absolute Auto 0.1 K/mm3 (0.0-0.012); Nucleated Red Blood Cells Perc 0.8 % (0.0-0.2); Platelet Count Result 223 k/mm3 (150-375); Red Blood Count 5.27 M/mm3 (4.2-5.4); Red Cell Distribution Width 15.7 % (11.5-14.5); White Blood Count 11.4 K/mm3 (4.5-10.0)
[2022-10-20 04:39] LABS: Blood Urea Nitrogen 10 mg/dL (7-17); Calcium 8.3 mg/dL (8.4-10.2); Carbon Dioxide > 40 mmol/L (22-30); Chloride 99 mmol/L (98-107); Estimated CRCL calculation 144 ml/min; Estimated Glomerular Filt Rate > 60; Glucose 272 mg/dL (65-110); Sodium 140 mmol/L (137-145)
[2022-10-20] MEDS: SUCRALFATE SUSP 100 MG/ML 10 ML UDC 1000 MG FEED TUBE (05:22)
[2022-10-20 05:32] LABS: Alveolar/Arterial O2 Gradient 218.3 mmHg; Base Excess ABG 9.3 mEq/l (+/-2.0); Carboxyhemoglobin 2.5 % THb (0-2.0); Fractional Inspired Oxygen 50 %; HCO3 ABG 36.9 mEq/l (22.0-26.0); Methemoglobin ABG 0.4 %THb (0-1.5); Oxygen Content ABG 19.5 %vol (16.0-22.0); Oxygen Saturation ABG 93.1 % (95.0-100.0); Oxyhemoglobin 91.1 % THb (90.0-100.0); PO2 ABG 68.5 mmHg (80.0-100.0); PO2 FiO2 Ratio Arterial Blood 1.37 %; Total Hemoglobin 15.2 g/dL (12.0-18.0); pH ABG 7.392 (7.350-7.450)
[2022-10-20 05:34] LABS: Modified Allen's Test Pass; Site Drawn RIGHT RADIAL
[2022-10-20 05:35] LABS: Arterial Blood Gas PEEP 5 cmH2O; Arterial Blood Gas Tidal Volume 460 ml; Arterial Blood Gas Vent Mode CMV; Arterial Blood Gas Ventilator rate 16 /MIN; Device VENTILATOR
[2022-10-20] MEDS: IPRATROPIUM BR 0.02% INH SOLN 0.5 MG/2.5 ML VIAL INHALATION ×3 (07:47→20:20)
[2022-10-20] MEDS: BUDESONIDE RESPULE NEB 0.5 MG/2 ML AMP INHALATION ×2 (07:48→20:20)
[2022-10-20] MEDS: LEVALBUTEROL NEB 1.25 MG/3 ML INHALATION ×3 (07:48→20:20)
[2022-10-20 08:09] LABS: Triglycerides 88 mg/dL (<150)
--- NOTE | 2022-10-20 08:30 | WPDCNINT ---
Assessment and Plan Assessment and plan (1) Acute respiratory failure with hypoxia and hypercapnia: Code(s): J96.01 - Acute respiratory failure with hypoxia; J96.02 - Acute respiratory failure with hypercapnia Status: Acute Assessment and Plan: Patient presented with acute shortness of breath, lethargy, ABGs revealed acute hypercapnic and hypoxic respiratory failure requiring intubation on 10/19/2022 upon admission, as she failed BiPAP due to restlessness and altered mental status -continue Zosyn(10/20), will add vancomycin and azithromycin (10/20) -obtain blood, sputum, urine culture -start patient on bronchodilators -started patient on steroids -sedated with fentanyl and Versed infusion, will switch to propofol (2) Pneumonia: Code(s): J18.9 - Pneumonia, unspecified organism Status: Acute Assessment and Plan: Bilateral infiltrates left greater than right likely related to pneumonia versus pulmonary edema -continue antibiotics as above -check SARS-CoV-2 PCR, RSV PCR and influenza A and B (3) Acute exacerbation of congestive heart failure: Code(s): I50.9 - Heart failure, unspecified Status: Acute Assessment and Plan: Continue mechanical ventilation, steroids, antibiotics and bronchodilators -add pulmicort (4) CHF exacerbation: Qualifiers: Heart failure type: unspecified Qualified Code(s): I50.9 - Heart failure, unspecified Code(s): I50.9 - Heart failure, unspecified Status: Chronic Assessment and Plan: Patient has history of CHF -no echocardiogram on file -ordered echocardiogram -continue Lasix (5) Noncompliance: Code(s): Z91.19 - Patient's noncompliance with other medical treatment and regimen Status: Acute Assessment and Plan: According the records patient's son stated to the ER physician that she has been noncompliant with her medications, diet and oxygen at home (6) Tobacco abuse: Code(s): Z72.0 - Tobacco use Status: Acute Assessment and Plan: Tobacco abuse, continues to smoke 0.5 packs per day for 20 years -will consumer credit counselor on cessation of smoking once patient is extubated (7) Obstructive sleep apnea: Code(s): G47.33 - Obstructive sleep apnea (adult) (pediatric) Status: Acute Assessment and Plan: Noncompliant with CPAP and/or oxygen at home (8) Diabetes mellitus: Code(s): E11.9 - Type 2 diabetes mellitus without complications Status: Acute Assessment and Plan: Started patient on Accu-Cheks and sliding scale insulin (9) Essential hypertension: Code(s): I10 - Essential (primary) hypertension Status: Acute Assessment and Plan: Continue amlodipine which she takes at home (10) Hyperlipidemia: Code(s): E78.5 - Hyperlipidemia, unspecified Status: Acute Assessment and Plan: Continue atorvastatin, which is her home med Plan DVT prophylaxis: Lovenox Stress ulcer prophylaxis: Protonix Nutrition: Will start tube feeds Code Status: Full code Critical Care Time Spent: 49 minutes Due to a high probability of clinically significant, life threatening deterioration, the patient required my highest level of preparedness to intervene emergently and I personally spent this critical care time directly and personally managing the patient. This critical care time included obtaining a history; examining the patient; pulse oximetry; ordering and review of studies; arranging urgent treatment with development of a management plan; evaluation of patient's response to treatment; frequent reassessment; and discussions with other providers. It was exclusive of separately billable procedures and treating other patients and teaching time. Please see Assessment and Plan section and the rest of the note for further information on patient assessment and treatment This dictation may have been done utilizing a voice recognition system. Attempts have
[2022-10-20] MEDS: methylPREDNISolone SOD SUCC 40 MG VIAL IV PUSH ×3 (08:35→17:59)
[2022-10-20] MEDS: ASPIRIN 81 MG CHEWABLE TABLET PO (08:36)
[2022-10-20] MEDS: ATORVASTATIN 40 MG TABLET PO (08:36)
[2022-10-20] MEDS: DULoxetine HCL 60 MG CAPSULE.DR PO (08:37)
[2022-10-20] MEDS: MINERAL OIL/WHITE PETROLATUM OINTMENT 1 APPLIC EACH EYE ×2 (08:37→20:23)
[2022-10-20] MEDS: FUROSEMIDE INJ 40 MG/4 ML VIAL IV PUSH (08:37)
[2022-10-20] MEDS: MONTELUKAST SODIUM 10 MG TABLET PO (08:37)
[2022-10-20] MEDS: FAMOTIDINE 20 MG/2 ML VIAL IV PUSH (08:37)
[2022-10-20] MEDS: amLODIPine BESYLATE 5 MG TABLET PO (08:37)
[2022-10-20] MEDS: PROPOFOL IV EMULSION 100 ML 14.41 MG IV CONT (08:39)
[2022-10-20 08:44] LABS: Appearance Urine Clear (Clear); Bacteria Urine None Seen /hpf; Bilirubin Urine Negative (Negative); Blood Urine Negative (Negative); Color Urine Yellow (Yellow); Glucose Urine UA Negative (Negative); Ketones Urine Negative (Negative); Leukocyte Esterase Ur 1+ LEU/UL (NEGATIVE); Nitrate Urine Negative (Negative); Non Pathogenic Casts 0-2; Protein Urine 1+ mg/dL (Negative); RBC Urine 0-2 /hpf (0-2); Specific Grav Ur 1.019 (1.001-1.035); Squamous Epithelial Cell Urine Occasional /hpf (Few); pH Urine >=9.0 (5.0-9.0)
[2022-10-20 08:59] LABS: Add Urine Microscopic? YES
[2022-10-20 09:06] LABS: Influenza A QL RT-PCR Negative (Negative); Influenza B QL RT-PCR Negative (Negative); RSV RNA, RT-PCR Negative (Negative); SARS-CoV-2 RNA PCR Negative
[2022-10-20] MEDS: INSULIN ASPART (*BKC) 100 UNITS/ML SUB-Q ×4 (09:14→20:52)
[2022-10-20] MEDS: PANTOPRAZOLE SODIUM IV 40 MG VIAL IV PUSH ×2 (10:25→20:23)
[2022-10-20] MEDS: ENOXAPARIN 40 MG/0.4 ML SYRINGE SUB-Q (10:25)
[2022-10-20] MEDS: LIDOCAINE HCL 1% PF INJ 5 ML VIAL INFILTRATE (12:00)
[2022-10-20 12:28] LABS: Glucose Point of Care 272 mg/dl (65-105)
[2022-10-20] MEDS: ALBUMIN HUMAN 25% 25 GM/100 ML 100 ML IVPB ×3 (13:06→20:22)
[2022-10-20 13:16] LABS: Glucose Point of Care 272 mg/dl (65-105)
[2022-10-20] MEDS: CENTRAL LINE FLUSH 10 ML IV PUSH ×2 (13:23→20:22)
[2022-10-20] MEDS: PROPOFOL IV EMULSION 100 ML 21.62 MG IV CONT ×3 (13:34→21:53)
[2022-10-20] MEDS: ACETAMINOPHEN 325 MG TABLET 650 MG FEED TUBE (17:25)
[2022-10-20 17:29] LABS: Glucose Point of Care 253 mg/dl (65-105)
[2022-10-20 20:51] LABS: Glucose Point of Care 284 mg/dl (65-105)
[2022-10-21] VITALS (42 sets, daily range): BP systolic 103–124; BP diastolic 64–85; PULSE 60–90; RESP 16–30; TEMP 36.9–37.1; O2SAT 91–95
[2022-10-21 00:43] LABS: Glucose Point of Care 269 mg/dl (65-105)
[2022-10-21] MEDS: PIPERACILLIN/TAZOBACTAM SOD 4.5 GM in SODIUM CHLORIDE 0.9% IV 100 ML 200 ML IVPB ×5 (00:46→23:50)
[2022-10-21] MEDS: methylPREDNISolone SOD SUCC 40 MG VIAL IV PUSH ×5 (00:46→23:50)
[2022-10-21] MEDS: INSULIN ASPART (*BKC) 100 UNITS/ML SUB-Q ×6 (00:46→21:45)
[2022-10-21] MEDS: PROPOFOL IV EMULSION 100 ML 21.62 MG IV CONT ×2 (01:31→06:24)
[2022-10-21] MEDS: LEVALBUTEROL NEB 1.25 MG/3 ML INHALATION ×4 (02:00→19:50)
[2022-10-21] MEDS: IPRATROPIUM BR 0.02% INH SOLN 0.5 MG/2.5 ML VIAL INHALATION ×4 (02:00→19:49)
[2022-10-21] MEDS: ALBUMIN HUMAN 25% 25 GM/100 ML 100 ML IVPB (03:05)
[2022-10-21 05:04] LABS: Basophils Percent Auto 0.2 % (0.2-1.2); Hematocrit 41.1 % (37.0-47.0); Immature Granulocyte Absolute 0.04 K/mm3 (0.00-0.031); Immature Granulocyte Percent A 0.4 % (0-0.5); Lymphocytes Absolute Auto 1.16 K/mm3 (0.9-3.2); Lymphocytes Percent Auto 10.5 % (18.3-44.2); Mean Corpuscular HGB Conc 31.6 g/dl (32-36); Mean Corpuscular Hemoglobin 28.4 pg (26-34); Mean Corpuscular Volume 89.9 fl (80-100); Mean Platelet Volume 9.9 fl (7.4-10.4); Monocytes Absolute Auto 0.7 K/mm3 (0.1-0.6); Monocytes Percent Auto 6.2 % (2.6-8.5); Neutrophils Absolute Auto 9.2 K/mm3 (1.3-6.7); Neutrophils Percent Auto 82.7 % (45.5-73.1); Nucleated Red Blood Cells Absolute Auto 0.1 K/mm3 (0.0-0.012); Nucleated Red Blood Cells Perc 0.5 % (0.0-0.2); Platelet Count Result 210 k/mm3 (150-375); Red Blood Count 4.57 M/mm3 (4.2-5.4); Red Cell Distribution Width 15.9 % (11.5-14.5); White Blood Count 11.1 K/mm3 (4.5-10.0)
[2022-10-21 05:28] LABS: Alanine Aminotransferase 19 U/L (6-35); Albumin Level 4.2 g/dL (3.5-5.1); Alkaline Phosphatase 79 U/L (38-126); Anion Gap 4 mmol/L (8-16); Aspartate Amino Transferase 21 U/L (14-36); Bilirubin,Total 0.6 mg/dL (0.2-1.3); Blood Urea Nitrogen 12 mg/dL (7-17); Calcium 8.5 mg/dL (8.4-10.2); Carbon Dioxide 38 mmol/L (22-30); Chloride 99 mmol/L (98-107); Estimated CRCL calculation 131 ml/min; Estimated Glomerular Filt Rate > 60; Glucose 244 mg/dL (65-110); Lipase 42 U/L (23-300); Potassium 4.1 mmol/L (3.4-5.0); Sodium 141 mmol/L (137-145)
[2022-10-21 05:32] LABS: Lactic Acid Reflex 1.5 mmol/L (0.7-2.0)
[2022-10-21] MEDS: CENTRAL LINE FLUSH 10 ML IV PUSH ×3 (05:50→20:41)
[2022-10-21 06:05] LABS: Alveolar/Arterial O2 Gradient 229.6 mmHg; Base Excess ABG 8.3 mEq/l (+/-2.0); Carboxyhemoglobin 0.4 % THb (0-2.0); Fractional Inspired Oxygen 50 %; HCO3 ABG 34.1 mEq/l (22.0-26.0); Methemoglobin ABG 0.3 %THb (0-1.5); Oxygen Content ABG 18.7 %vol (16.0-22.0); Oxygen Saturation ABG 94.2 % (95.0-100.0); PCO2 ABG 51.3 mmHg (35.0-45.0); PO2 ABG 69.2 mmHg (80.0-100.0); PO2 FiO2 Ratio Arterial Blood 1.38 %; Reduced Hemoglobin 6.3 %THb (0-5.0); Total Hemoglobin 14.3 g/dL (12.0-18.0)
[2022-10-21 06:09] LABS: Device VENTILATOR; Modified Allen's Test Pass; Site Drawn RIGHT RADIAL
[2022-10-21 06:10] LABS: Arterial Blood Gas PEEP 5 cmH2O; Arterial Blood Gas Tidal Volume 460 ml; Arterial Blood Gas Vent Mode CMV; Arterial Blood Gas Ventilator rate 16 /MIN
[2022-10-21] MEDS: BUDESONIDE RESPULE NEB 0.5 MG/2 ML AMP INHALATION ×2 (08:01→19:49)
[2022-10-21] MEDS: PANTOPRAZOLE SODIUM IV 40 MG VIAL IV PUSH ×2 (08:53→20:41)
[2022-10-21] MEDS: ENOXAPARIN 40 MG/0.4 ML SYRINGE SUB-Q (08:53)
[2022-10-21] MEDS: DULoxetine HCL 60 MG CAPSULE.DR PO (08:53)
[2022-10-21] MEDS: ASPIRIN 81 MG CHEWABLE TABLET PO (08:53)
[2022-10-21] MEDS: ATORVASTATIN 40 MG TABLET PO (08:53)
[2022-10-21] MEDS: MINERAL OIL/WHITE PETROLATUM OINTMENT 1 APPLIC EACH EYE ×2 (08:55→20:41)
[2022-10-21] MEDS: MONTELUKAST SODIUM 10 MG TABLET PO (08:55)
[2022-10-21 09:08] LABS: Glucose Point of Care 262 mg/dl (65-105)
[2022-10-21] MEDS: FUROSEMIDE INJ 40 MG/4 ML VIAL IV PUSH (09:12)
[2022-10-21] MEDS: PROPOFOL IV EMULSION 100 ML 28.82 MG IV CONT ×2 (09:24→12:12)
--- NOTE | 2022-10-21 09:47 | WPDINTPN ---
Progress Note: A&P Assessment and Plan (1) Acute respiratory failure with hypoxia and hypercapnia: Code(s): J96.01 - Acute respiratory failure with hypoxia; J96.02 - Acute respiratory failure with hypercapnia Status: Acute Assessment and Plan: Patient presented with acute shortness of breath, lethargy, ABGs revealed acute hypercapnic and hypoxic respiratory failure requiring intubation on 10/19/2022 upon admission, as she failed BiPAP due to restlessness and altered mental status -continue Zosyn(10/20), will add vancomycin and azithromycin (10/20) -chest x-ray this morning: Left lower lobe consolidation with mild haziness in the remainder of the lungs. Correlate for pulmonary edema/atelectasis versus infection. -ABGs reviewed -10/20/2022: Preliminary blood culture is also negative x2 -10/20/2022 sputum cultures pending -10/20/2022 urine culture pending -10/20/2022 MRSA screen pending -continue bronchodilators -continue Solu-Medrol -continue Lasix -sedated with propofol, maintain RASS of 0 to -1, daily SBT and SAT (2) Pneumonia: Code(s): J18.9 - Pneumonia, unspecified organism Status: Acute Assessment and Plan: Bilateral infiltrates left greater than right likely related to pneumonia versus pulmonary edema -continue antibiotics as above - SARS-CoV-2 PCR, RSV PCR and influenza A and B negative -urine Legionella and urine pneumococcal antigen pending (3) Acute exacerbation of congestive heart failure: Code(s): I50.9 - Heart failure, unspecified Status: Acute Assessment and Plan: Continue mechanical ventilation, steroids, antibiotics and bronchodilators -continue pulmicort (4) Noncompliance: Code(s): Z91.19 - Patient's noncompliance with other medical treatment and regimen Status: Acute Assessment and Plan: According the records patient's son stated to the ER physician that she has been noncompliant with her medications, diet and oxygen at home (5) Tobacco abuse: Code(s): Z72.0 - Tobacco use Status: Acute Assessment and Plan: Tobacco abuse, continues to smoke 0.5 packs per day for 20 years -will high school guidance counselor on cessation of smoking once patient is extubated (6) Obstructive sleep apnea: Code(s): G47.33 - Obstructive sleep apnea (adult) (pediatric) Status: Acute Assessment and Plan: Noncompliant with CPAP and/or oxygen at home (7) Diabetes mellitus: Code(s): E11.9 - Type 2 diabetes mellitus without complications Status: Acute Assessment and Plan: Started patient on Accu-Cheks and sliding scale insulin (8) Essential hypertension: Code(s): I10 - Essential (primary) hypertension Status: Acute Assessment and Plan: Hold all antihypertensives as blood pressures are stable (9) Hyperlipidemia: Code(s): E78.5 - Hyperlipidemia, unspecified Status: Acute Assessment and Plan: Continue atorvastatin, which is her home med Plan DVT prophylaxis: Lovenox Stress ulcer prophylaxis: Protonix Nutrition: Tolerating tube feeds Code Status: Full code Critical Care Time Spent: 32 minutes Due to a high probability of clinically significant, life threatening deterioration, the patient required my highest level of preparedness to intervene emergently and I personally spent this critical care time directly and personally managing the patient. This critical care time included obtaining a history; examining the patient; pulse oximetry; ordering and review of studies; arranging urgent treatment with development of a management plan; evaluation of patient's response to treatment; frequent reassessment; and discussions with other providers. It was exclusive of separately billable procedures and treating other patients and teaching time. Please see Assessment and Plan section and the rest of the note for further information on patient assessment and treatment This dictation may have been
--- NOTE | 2022-10-21 11:17 | PCNFU ---
Nutrition Follow-Up Complete: Inadequate Oral Intake as related to mechanical ventilation as related to NPO. Goal: Meet estimated nutritional needs. Patient is progressing towards goal. Pt current nutrition is Vital HP at 55 ml/hr. Last recorded weight is 125.5 kg. Bowel Motility:No BM noted. Labs Reviewed:Glu 244, Cr 0.6 Meds Noted:Fentanyl,Versed, Lantus, Lasix, Propofol at 40 yujr=966 kcals Skin: WNL Additional Notes: Patient remains on mechanical vent and tube feedings of Vital HP at 55 ml/hr and tolerating. Tube feeding is providing 1210 kcals/ 106 gms protein/1012 ml water plus additional 760 kcals from Propofol for total nutrition of 1970 kcals/106 gms protein 1012 ml water. Tube feeding rate is appropriate at this time. Flush 30 ml q 4 hours. Agree with diet orders. Will monitor weight, labs, skin, meds, tube feeding tolerance daily in ICU rounds and reassess every Thursday and Thursday.
[2022-10-21] MEDS: INSULIN GLARGINE (*BKC) 100 UNITS/ML 15 UNITS SUB-Q (12:10)
[2022-10-21 12:23] LABS: Glucose Point of Care 351 mg/dl (65-105)
[2022-10-21] MEDS: PROPOFOL IV EMULSION 100 ML 32.43 MG IV CONT (15:48)
[2022-10-21 17:15] LABS: Glucose Point of Care 311 mg/dl (65-105)
[2022-10-21] MEDS: PROPOFOL IV EMULSION 100 ML 36.03 MG IV CONT ×3 (18:38→23:27)
[2022-10-21 19:29] LABS: Vancomycin Trough 11.2 ug/mL (10.0-20.0)
--- NOTE | 2022-10-21 21:05 | PC.NURSE ---
Patient having increased agitation on the ventilator. Dr. Washingtonly notified. Start low dose versed drip. Also give 2mg Versed IV push now.
[2022-10-21] MEDS: MIDAZOLAM HCL (*CRX) 2 MG/2 ML VIAL IV PUSH (21:36)
[2022-10-21] MEDS: MIDAZOLAM 100MG/NS 100ML(*CRX) 100 MG/100 ML BAG IV CONT (21:37)
[2022-10-21 21:46] LABS: Glucose Point of Care 295 mg/dl (65-105)
[2022-10-21 23:59] LABS: Glucose Point of Care 309 mg/dl (65-105)
[2022-10-22] VITALS (40 sets, daily range): BP systolic 106–130; BP diastolic 64–83; PULSE 54–81; RESP 16–20; TEMP 36.9–37.4; O2SAT 91–94
[2022-10-22] MEDS: INSULIN ASPART (*BKC) 100 UNITS/ML SUB-Q ×6 (00:12→23:59)
[2022-10-22] MEDS: PROPOFOL IV EMULSION 100 ML 32.43 MG IV CONT (01:56)
[2022-10-22] MEDS: IPRATROPIUM BR 0.02% INH SOLN 0.5 MG/2.5 ML VIAL INHALATION ×4 (02:48→20:45)
[2022-10-22] MEDS: LEVALBUTEROL NEB 1.25 MG/3 ML INHALATION ×4 (02:48→20:45)
[2022-10-22 04:56] LABS: Basophils Percent Auto 0.2 % (0.2-1.2); Hematocrit 43.1 % (37.0-47.0); Hemoglobin 13.7 g/dL (12.0-15.0); Immature Granulocyte Absolute 0.05 K/mm3 (0.00-0.031); Immature Granulocyte Percent A 0.4 % (0-0.5); Lymphocytes Absolute Auto 1.31 K/mm3 (0.9-3.2); Lymphocytes Percent Auto 10.6 % (18.3-44.2); Mean Corpuscular HGB Conc 31.8 g/dl (32-36); Mean Corpuscular Hemoglobin 28.7 pg (26-34); Mean Corpuscular Volume 90.2 fl (80-100); Mean Platelet Volume 10.3 fl (7.4-10.4); Monocytes Absolute Auto 0.8 K/mm3 (0.1-0.6); Monocytes Percent Auto 6.7 % (2.6-8.5); Neutrophils Absolute Auto 10.1 K/mm3 (1.3-6.7); Neutrophils Percent Auto 82.1 % (45.5-73.1); Nucleated Red Blood Cells Perc 0.2 % (0.0-0.2); Platelet Count Result 216 k/mm3 (150-375); Red Blood Count 4.78 M/mm3 (4.2-5.4); Red Cell Distribution Width 16.2 % (11.5-14.5); White Blood Count 12.3 K/mm3 (4.5-10.0)
[2022-10-22] MEDS: PROPOFOL IV EMULSION 100 ML 28.82 MG IV CONT ×4 (05:00→21:45)
[2022-10-22] MEDS: CENTRAL LINE FLUSH 10 ML IV PUSH ×3 (05:01→20:53)
[2022-10-22] MEDS: methylPREDNISolone SOD SUCC 40 MG VIAL IV PUSH (05:01)
[2022-10-22] MEDS: PIPERACILLIN/TAZOBACTAM SOD 4.5 GM in SODIUM CHLORIDE 0.9% IV 100 ML 200 ML IVPB ×4 (05:01→23:59)
[2022-10-22 05:48] LABS: Alveolar/Arterial O2 Gradient 161.4 mmHg; Base Excess ABG 6.7 mEq/l (+/-2.0); Carboxyhemoglobin 1.1 % THb (0-2.0); Fractional Inspired Oxygen 40 %; HCO3 ABG 32.6 mEq/l (22.0-26.0); Methemoglobin ABG 0.1 %THb (0-1.5); Oxygen Content ABG 18.9 %vol (16.0-22.0); Oxyhemoglobin 90.7 % THb (90.0-100.0); PO2 ABG 65.2 mmHg (80.0-100.0); PO2 FiO2 Ratio Arterial Blood 1.63 %; Reduced Hemoglobin 8.1 %THb (0-5.0); Total Hemoglobin 14.8 g/dL (12.0-18.0); pH ABG 7.423 (7.350-7.450)
[2022-10-22 05:50] LABS: Device VENTILATOR; Modified Allen's Test Pass; Site Drawn RIGHT RADIAL
[2022-10-22 05:51] LABS: Arterial Blood Gas PEEP 5 cmH2O; Arterial Blood Gas Tidal Volume 460 ml; Arterial Blood Gas Vent Mode CMV; Arterial Blood Gas Ventilator rate 16 /MIN
[2022-10-22 06:20] LABS: Glucose Point of Care 269 mg/dl (65-105)
--- NOTE | 2022-10-22 07:43 | P.CDI_ITS ---
CDI Query Clarified Diagnosis Clarified Diagnosis: Elevated BNP on 10/19/22 lab work. Documented history of CHF. CHF noted on the assessment and plan. Lasix listed as a home medication. Patient receiving IV Lasix. Chest Xray on 10/20/22 notes pulmonary edema. Edema noted in the documentation. Please specify type and acuity of heart failure if known. * Acute * Chronic * Acute on Chronic * Unknown * Systolic * Diastolic * Combined Systolic and Diastolic * Unknown
[2022-10-22 07:54] LABS: Alanine Aminotransferase 19 U/L (6-35); Albumin Level 3.9 g/dL (3.5-5.1); Alkaline Phosphatase 77 U/L (38-126); Anion Gap 3 mmol/L (8-16); Aspartate Amino Transferase 16 U/L (14-36); Bilirubin,Total 0.7 mg/dL (0.2-1.3); Blood Urea Nitrogen 16 mg/dL (7-17); Calcium 8.8 mg/dL (8.4-10.2); Carbon Dioxide 37 mmol/L (22-30); Chloride 100 mmol/L (98-107); Estimated CRCL calculation 130 ml/min; Estimated Glomerular Filt Rate > 60; Glucose 238 mg/dL (65-110); Magnesium 2.3 mg/dL (1.6-2.3); Phosphorus 4.5 mg/dL (2.5-4.5); Potassium 3.8 mmol/L (3.4-5.0); Sodium 140 mmol/L (137-145); Triglycerides 156 mg/dL (<150)
--- NOTE | 2022-10-22 07:55 | WPDINTPN ---
Progress Note: A&P Assessment and Plan (1) Acute respiratory failure with hypoxia and hypercapnia: Code(s): J96.01 - Acute respiratory failure with hypoxia; J96.02 - Acute respiratory failure with hypercapnia Status: Acute Assessment and Plan: Patient presented with acute shortness of breath, lethargy, ABGs revealed acute hypercapnic and hypoxic respiratory failure requiring intubation on 10/19/2022 upon admission, as she failed BiPAP due to restlessness and altered mental status -continue Zosyn, vancomycin and azithromycin (10/20) -chest x-ray this morning:Extensive bilateral pulmonary disease, most confluent at the left lower lobe region. Correlate for pulmonary edema/atelectasis versus pneumonia.Possible small left pleural effusion -ABGs reviewed -10/20/2022: Preliminary blood culture is also negative x2 -10/20/2022: Preliminary sputum cultures negative -10/20/2022 urine culture pending -10/20/2022 MRSA screen pending -continue bronchodilators -degree Solu-Medrol as patient not wheezing -will increase Lasix to q.12 hours -sedated with propofol and Versed, maintain RASS of 0 to -1, daily SBT and SAT (2) Pneumonia: Code(s): J18.9 - Pneumonia, unspecified organism Status: Acute Assessment and Plan: Bilateral infiltrates left greater than right likely related to pneumonia versus pulmonary edema -continue antibiotics as above - SARS-CoV-2 PCR, RSV PCR and influenza A and B negative -urine Legionella and urine pneumococcal antigen pending (3) Acute exacerbation of congestive heart failure: Code(s): I50.9 - Heart failure, unspecified Status: Acute Assessment and Plan: Continue mechanical ventilation, steroids, antibiotics and bronchodilators -continue pulmicort (4) Noncompliance: Code(s): Z91.19 - Patient's noncompliance with other medical treatment and regimen Status: Acute Assessment and Plan: According the records patient's son stated to the ER physician that she has been noncompliant with her medications, diet and oxygen at home (5) Tobacco abuse: Code(s): Z72.0 - Tobacco use Status: Acute Assessment and Plan: Tobacco abuse, continues to smoke 0.5 packs per day for 20 years -will nutrition counselor on cessation of smoking once patient is extubated (6) Obstructive sleep apnea: Code(s): G47.33 - Obstructive sleep apnea (adult) (pediatric) Status: Acute Assessment and Plan: Noncompliant with CPAP and oxygen at home (7) Diabetes mellitus: Code(s): E11.9 - Type 2 diabetes mellitus without complications Status: Acute Assessment and Plan: Continue Accu-Cheks and sliding scale insulin -hyperglycemia likely related to steroids -increase Lantus -check hemoglobin A1c (8) Essential hypertension: Code(s): I10 - Essential (primary) hypertension Status: Acute Assessment and Plan: Hold all antihypertensives as blood pressures are stable (9) Hyperlipidemia: Code(s): E78.5 - Hyperlipidemia, unspecified Status: Acute Assessment and Plan: Continue atorvastatin, which is her home med Plan DVT prophylaxis: Lovenox Stress ulcer prophylaxis: Protonix Nutrition: Tolerating tube feeds Code Status: Full code Critical Care Time Spent: 32 minutes 10/21: Discussed with son at bedside and updated with patient's condition and plan of care. He is aware that patient has pneumonia and possible pulmonary edema for which she is on antibiotics and diuresis. He is aware that patient has COPD and is noncompliant. I answered all questions and updated with radiology, lab reports along with echocardiogram. Due to a high probability of clinically significant, life threatening deterioration, the patient required my highest level of preparedness to intervene emergently and I personally spent this critical care time directly and personally managing the patient. This critical care time inc
[2022-10-22 08:12] LABS: Hemoglobin A1C 9.4 % (<5.7)
[2022-10-22] MEDS: MINERAL OIL/WHITE PETROLATUM OINTMENT 1 APPLIC EACH EYE ×2 (08:47→20:53)
[2022-10-22] MEDS: FUROSEMIDE INJ 40 MG/4 ML VIAL IV PUSH ×2 (08:52→20:52)
[2022-10-22] MEDS: INSULIN GLARGINE (*BKC) 100 UNITS/ML 25 UNITS SUB-Q (08:52)
[2022-10-22] MEDS: BUDESONIDE RESPULE NEB 0.5 MG/2 ML AMP INHALATION ×2 (08:55→20:45)
[2022-10-22] MEDS: ENOXAPARIN 40 MG/0.4 ML SYRINGE SUB-Q (08:59)
[2022-10-22] MEDS: PANTOPRAZOLE SODIUM IV 40 MG VIAL IV PUSH ×2 (09:01→20:52)
[2022-10-22 09:09] LABS: Glucose Point of Care 241 mg/dl (65-105)
[2022-10-22] MEDS: MONTELUKAST SODIUM 10 MG TABLET PO (09:48)
[2022-10-22] MEDS: ATORVASTATIN 40 MG TABLET PO (09:48)
[2022-10-22] MEDS: ASPIRIN 81 MG CHEWABLE TABLET PO (09:48)
[2022-10-22] MEDS: DULoxetine HCL 60 MG CAPSULE.DR PO (09:48)
--- NOTE | 2022-10-22 11:28 | PCFNICU ---
ICU Rounding Note: Pt current nutrition is Vital HP at 55 ml/hr. Last recorded weight is 125.1 kg. Bowel Motility: No Bm reported Labs Reviewed:Glu 238, Cr 0.6 Meds Noted:Lantus, Lasix, Propofol 40 djyv=464 kcals, Protonix, Lovenox Skin: WNL Additional Notes: Patient remains on mechanical vent and tube feedings of Vital HP at 55 ml/hr and tolerating. Flush 30 ml q 4 hours. Agree with diet orders. Will monitor weight, labs, skin, meds, tube feeding tolerance daily in ICU rounds and reassess every Thursday and Thursday.
--- NOTE | 2022-10-22 11:35 | PM.IMPN ---
Progress Note: A&P Assessment and Plan (1) Acute respiratory failure with hypoxia and hypercapnia: Code(s): J96.01 - Acute respiratory failure with hypoxia; J96.02 - Acute respiratory failure with hypercapnia Status: Acute Assessment and Plan: Patient presented with acute shortness of breath and lethargy. CXR showing LLL airspace disease. ABGs revealed acute hypercapnic and hypoxic respiratory failure requiring intubation on 10/19/2022 upon admission, as she failed BiPAP due to restlessness and altered mental status. SARS-CoV-2 PCR, RSV PCR and influenza A and B negative she was started on Zosyn, vancomycin and azithromycin (10/20) BCx 10/20 NGTD. MRSA nasal swab negative for MRSA 10/20 UCx pending. Sputum Cx growing H.flu and St.aureus. -chest x-ray this morning:Extensive bilateral pulmonary disease, most confluent at the left lower lobe region. Correlate for pulmonary edema/atelectasis versus pneumonia. Possible small left pleural effusion -Continue IV abx -started on steroids which will be contnued. Continue bronchodilators -continue MV. Vent management per optical coating technician and appreciate their input (2) Pneumonia: Code(s): J18.9 - Pneumonia, unspecified organism Status: Acute Assessment and Plan: CXR showing LLL airspace disease. CT chest 10/21 showing bilateral LL airspace disease but no PE. -sputum culutre as mentioned above -continue antibiotics as above -urine Legionella and urine pneumococcal antigen pending (3) Acute exacerbation of congestive heart failure: Code(s): I50.9 - Heart failure, unspecified Status: Acute Assessment and Plan: CXR today showing extensive bilateral pulmonary edema. BNP 320 on admission. Lasix IV ordered. Wean mechanical ventilation as tolerated. Limit total fluid intake (4) Noncompliance: Code(s): Z91.19 - Patient's noncompliance with other medical treatment and regimen Status: Acute Assessment and Plan: According to the records, the patient's son stated to the ER physician that the patient has been noncompliant with her medications, diet and oxygen at home. (5) Obstructive sleep apnea: Code(s): G47.33 - Obstructive sleep apnea (adult) (pediatric) Status: Acute Assessment and Plan: Noncompliant with CPAP and oxygen at home (6) Diabetes mellitus: Code(s): E11.9 - Type 2 diabetes mellitus without complications Status: Acute Assessment and Plan: A1c 9.4. Continue Accu-Cheks and sliding scale insulin -hyperglycemia likely related to steroids -increase Lantus (7) Essential hypertension: Code(s): I10 - Essential (primary) hypertension Status: Acute Assessment and Plan: Hold all antihypertensives as blood pressures are stable (8) Hyperlipidemia: Code(s): E78.5 - Hyperlipidemia, unspecified Status: Acute Assessment and Plan: Continue atorvastatin, which is her home med (9) Tobacco abuse: Code(s): Z72.0 - Tobacco use Status: Acute Assessment and Plan: Tobacco abuse, continues to smoke 0.5 packs per day for 20 years -will rehab/pre vocational counselor on cessation of smoking once patient is extubated Plan DVT prophylaxis: Lovenox Stress ulcer prophylaxis: Protonix Nutrition: Tolerating tube feeds Code Status: Full code Critical Care Time Spent: 32 minutes 10/21: Discussed with son at bedside and updated with patient's condition and plan of care. He is aware that patient has pneumonia and possible pulmonary edema for which she is on antibiotics and diuresis. He is aware that patient has COPD and is noncompliant. I answered all questions and updated with radiology, lab reports along with echocardiogram. Due to a high probability of clinically significant, life threatening deterioration, the patient required my highest level of preparedness to intervene emergently and I personally spent this critical care t
[2022-10-22 12:12] LABS: Glucose Point of Care 353 mg/dl (65-105)
[2022-10-22] MEDS: PROPOFOL IV EMULSION 100 ML 25.22 MG IV CONT ×2 (15:14→18:50)
[2022-10-22 16:45] LABS: Glucose Point of Care 185 mg/dl (65-105)
[2022-10-22] MEDS: methylPREDNISolone SOD SUCC 40 MG VIAL 20 MG IV PUSH (18:09)
[2022-10-22 20:51] LABS: Glucose Point of Care 211 mg/dl (65-105)
[2022-10-23] VITALS (37 sets, daily range): BP systolic 101–129; BP diastolic 59–75; PULSE 50–78; RESP 16–26; TEMP 36.5–37.1; O2SAT 91–98
[2022-10-23 00:06] LABS: Glucose Point of Care 237 mg/dl (65-105)
[2022-10-23] MEDS: MIDAZOLAM 100MG/NS 100ML(*CRX) 100 MG/100 ML BAG IV CONT (00:17)
[2022-10-23] MEDS: PROPOFOL IV EMULSION 100 ML 21.62 MG IV CONT ×7 (02:00→18:26)
[2022-10-23] MEDS: LEVALBUTEROL NEB 1.25 MG/3 ML INHALATION ×4 (02:00→20:14)
[2022-10-23] MEDS: IPRATROPIUM BR 0.02% INH SOLN 0.5 MG/2.5 ML VIAL INHALATION ×4 (02:00→20:14)
[2022-10-23] MEDS: INSULIN ASPART (*BKC) 100 UNITS/ML SUB-Q ×6 (04:53→23:47)
[2022-10-23] MEDS: methylPREDNISolone SOD SUCC 40 MG VIAL 20 MG IV PUSH (04:53)
[2022-10-23 05:20] LABS: Alveolar/Arterial O2 Gradient 292.3 mmHg; Base Excess ABG 9.2 mEq/l (+/-2.0); Carboxyhemoglobin 0.6 % THb (0-2.0); Fractional Inspired Oxygen 60 %; HCO3 ABG 35.1 mEq/l (22.0-26.0); Methemoglobin ABG 0.3 %THb (0-1.5); Oxygen Content ABG 20.8 %vol (16.0-22.0); Oxygen Saturation ABG 95.9 % (95.0-100.0); Oxyhemoglobin 94.2 % THb (90.0-100.0); PCO2 ABG 51.7 mmHg (35.0-45.0); PO2 ABG 78.6 mmHg (80.0-100.0); PO2 FiO2 Ratio Arterial Blood 1.31 %; Reduced Hemoglobin 4.9 %THb (0-5.0); Total Hemoglobin 15.7 g/dL (12.0-18.0)
[2022-10-23 05:21] LABS: Arterial Blood Gas Vent Mode CMV; Arterial Blood Gas Ventilator rate 16 /MIN; Device VENTILATOR; Modified Allen's Test Pass; Site Drawn RIGHT RADIAL
[2022-10-23 05:22] LABS: Arterial Blood Gas PEEP 5 cmH2O; Arterial Blood Gas Tidal Volume 460 ml
[2022-10-23 05:25] LABS: Glucose Point of Care 240 mg/dl (65-105)
[2022-10-23] MEDS: PIPERACILLIN/TAZOBACTAM SOD 4.5 GM in SODIUM CHLORIDE 0.9% IV 100 ML 200 ML IVPB ×4 (05:25→23:48)
[2022-10-23] MEDS: CENTRAL LINE FLUSH 10 ML IV PUSH ×3 (05:26→21:02)
[2022-10-23 05:31] LABS: Basophils Percent Auto 0.2 % (0.2-1.2); Eosinophils Percent Auto 0.3 % (0-4.4); Hematocrit 46.7 % (37.0-47.0); Hemoglobin 14.6 g/dL (12.0-15.0); Immature Granulocyte Absolute 0.05 K/mm3 (0.00-0.031); Immature Granulocyte Percent A 0.5 % (0-0.5); Immature Platelet Fraction Pct 4.2 % (0.9-11.2); Lymphocytes Absolute Auto 1.96 K/mm3 (0.9-3.2); Lymphocytes Percent Auto 18.1 % (18.3-44.2); Mean Corpuscular HGB Conc 31.3 g/dl (32-36); Mean Corpuscular Hemoglobin 28.2 pg (26-34); Mean Corpuscular Volume 90.3 fl (80-100); Mean Platelet Volume 10.2 fl (7.4-10.4); Monocytes Absolute Auto 0.8 K/mm3 (0.1-0.6); Monocytes Percent Auto 7.5 % (2.6-8.5); Neutrophils Percent Auto 73.4 % (45.5-73.1); Platelet Count Result 239 k/mm3 (150-375); Red Blood Count 5.17 M/mm3 (4.2-5.4); Red Cell Distribution Width 17.1 % (11.5-14.5); White Blood Count 10.8 K/mm3 (4.5-10.0)
[2022-10-23 05:44] LABS: Alanine Aminotransferase 21 U/L (6-35); Alkaline Phosphatase 72 U/L (38-126); Aspartate Amino Transferase 21 U/L (14-36); Bilirubin,Total 0.7 mg/dL (0.2-1.3); Blood Urea Nitrogen 23 mg/dL (7-17); Calcium 8.6 mg/dL (8.4-10.2); Carbon Dioxide > 40 mmol/L (22-30); Chloride 96 mmol/L (98-107); Estimated CRCL calculation 129 ml/min; Estimated Glomerular Filt Rate > 60; Glucose 240 mg/dL (65-110); Magnesium 2.4 mg/dL (1.6-2.3); Phosphorus 4.4 mg/dL (2.5-4.5); Potassium 3.5 mmol/L (3.4-5.0); Sodium 138 mmol/L (137-145)
[2022-10-23 06:07] LABS: Platelet Estimate Adequate (Adequate)
[2022-10-23 06:09] LABS: Macrocytosis 1+ (NORMAL); Schistocytes None Seen (NORMAL)
[2022-10-23] MEDS: BUDESONIDE RESPULE NEB 0.5 MG/2 ML AMP INHALATION ×2 (07:00→20:14)
--- NOTE | 2022-10-23 08:43 | PM.IMPN ---
Progress Note: A&P Assessment and Plan (1) Acute respiratory failure with hypoxia and hypercapnia: Code(s): J96.01 - Acute respiratory failure with hypoxia; J96.02 - Acute respiratory failure with hypercapnia Status: Acute Assessment and Plan: Patient presented with acute shortness of breath and lethargy. CXR showing LLL airspace disease. ABGs revealed acute hypercapnic and hypoxic respiratory failure requiring intubation on 10/19/22 upon admission, as she failed BiPAP due to restlessness and altered mental status. SARS-CoV-2 PCR, RSV PCR and influenza A and B negative started on Zosyn, vancomycin and azithromycin (10/20) started on Solu-Medrol (10/19) BCx 10/20 NGTD. MRSA nasal swab negative 10/20 UCx negative Sputum Cx growing H.flu and St.aureus. -chest x-ray this morning: small left pl effusion with moderate pulm edema but consider PNA -Continue IV abx -continue steroids but frequency decreased. Continue bronchodilators -continue MV. Vent management per salesperson [employer] and appreciate their input (2) Pneumonia: Code(s): J18.9 - Pneumonia, unspecified organism Status: Acute Assessment and Plan: CXR on admission showing LLL airspace disease. CT chest 10/21 showing bilateral LL airspace disease but no PE. -sputum culture as mentioned above -continue antibiotics as above -urine Legionella and urine pneumococcal antigen pending (3) Acute exacerbation of congestive heart failure: Code(s): I50.9 - Heart failure, unspecified Status: Acute Assessment and Plan: CXR today showing extensive bilateral pulmonary edema. BNP 320 on admission. Lasix IV ordered. Negative fluid balance Wean mechanical ventilation as tolerated. Limit total fluid IV intake (4) Noncompliance: Code(s): Z91.19 - Patient's noncompliance with other medical treatment and regimen Status: Acute Assessment and Plan: According to the records, the patient's son stated to the ER physician that the patient has been noncompliant with her medications, diet and oxygen at home. Stress compliance when able (5) Obstructive sleep apnea: Code(s): G47.33 - Obstructive sleep apnea (adult) (pediatric) Status: Acute Assessment and Plan: Noncompliant with CPAP and oxygen at home (6) Diabetes mellitus: Code(s): E11.9 - Type 2 diabetes mellitus without complications Status: Acute Assessment and Plan: A1c 9.4. The patient's blood glucose was reviewed on 10/23 Glucose remains poorly controlled. Continue AccuCheks covering with sliding scale. Hypoglycemia protocol available as needed. Increase Lantus again (7) Essential hypertension: Code(s): I10 - Essential (primary) hypertension Status: Acute Assessment and Plan: Patient's blood pressure was reviewed on 10/23 Blood pressure remains well controlled. Will continue to hold all antihypertensives as blood pressures remain stable (8) Hyperlipidemia: Code(s): E78.5 - Hyperlipidemia, unspecified Status: Acute Assessment and Plan: Continue atorvastatin, which is her home med (9) Tobacco abuse: Code(s): Z72.0 - Tobacco use Status: Acute Assessment and Plan: Tobacco abuse, continues to smoke 0.5 packs per day for 20 years -will counseling center manager on cessation of smoking once patient is extubated Plan DVT prophylaxis: Lovenox Stress ulcer prophylaxis: Protonix Nutrition: Tolerating tube feeds Subjective Date/time seen: 10/23/22 08:43 Interval history: 51yo female with CHF, DM, obesity, untreated RAO, tobacco abuse and chronic respiratory failure (2-4L) here for altered mental status. She is noncompliant with treatment. She remains intubated and sedated. She responds to voice. She is tolerating her TF. She did have increase in O2 requirement overnight. She shakes her head no when asked about chest pain or abd pain. Review of System
[2022-10-23] MEDS: ATORVASTATIN 40 MG TABLET PO (09:16)
[2022-10-23] MEDS: ASPIRIN 81 MG CHEWABLE TABLET PO (09:16)
[2022-10-23] MEDS: DULoxetine HCL 60 MG CAPSULE.DR PO (09:16)
[2022-10-23] MEDS: FUROSEMIDE INJ 40 MG/4 ML VIAL IV PUSH ×2 (09:17→21:02)
[2022-10-23] MEDS: MONTELUKAST SODIUM 10 MG TABLET PO (09:17)
[2022-10-23] MEDS: ENOXAPARIN 40 MG/0.4 ML SYRINGE SUB-Q (09:17)
[2022-10-23] MEDS: PANTOPRAZOLE SODIUM IV 40 MG VIAL IV PUSH ×2 (09:18→21:02)
[2022-10-23] MEDS: POTASSIUM CHLORIDE 20 MEQ PACKET (FOR LIQUID) 40 MEQ FEED TUBE (09:21)
[2022-10-23] MEDS: MINERAL OIL/WHITE PETROLATUM OINTMENT 1 APPLIC EACH EYE ×2 (09:22→21:02)
[2022-10-23] MEDS: methylPREDNISolone SOD SUCC 40 MG VIAL IV PUSH (09:22)
[2022-10-23 09:26] LABS: Glucose Point of Care 311 mg/dl (65-105)
[2022-10-23] MEDS: INSULIN GLARGINE (*BKC) 100 UNITS/ML 35 UNITS SUB-Q (09:42)
[2022-10-23] MEDS: INSULIN GLARGINE (*BKC) 100 UNITS/ML 10 UNITS SUB-Q (09:52)
--- NOTE | 2022-10-23 10:38 | PCFNICU ---
ICU Rounding Note: Pt current nutrition is Vital HP at 55 ml/hr . Last recorded weight is 123.7 kg. Bowel Motility: No BM reported since admit. Labs Reviewed:Mg 2.4, BUN 23, Cr 0.6 Meds Noted:Propofol 30 xmci=977 kcals, Versed, Solu Medrol, Protonix, Lantus, Novolog Skin: WNL Additional Notes: Patient remains on mechanical vent and tube feedings of Vital HP at 55 ml/hr and tolerating. Tube feeding with addition of Propofol 30 mcgs providing 1781 kcals/106 gms protein/1012 ml water. Flush 30 ml q 4 hours. Agree with diet orders. Will monitor weight, labs, skin, meds, tube feeding tolerance daily in ICU rounds and reassess every Thursday and Thursday.
--- NOTE | 2022-10-23 11:15 | WPDINTPN ---
Progress Note: A&P Assessment and Plan (1) Acute respiratory failure with hypoxia and hypercapnia: Code(s): J96.01 - Acute respiratory failure with hypoxia; J96.02 - Acute respiratory failure with hypercapnia Status: Acute Assessment and Plan: Patient presented with acute shortness of breath, lethargy, ABGs revealed acute hypercapnic and hypoxic respiratory failure requiring intubation on 10/19/2022 upon admission, as she failed BiPAP due to restlessness and altered mental status -ABG and chest x-ray reviewed -increase PEEP to 10. Will try to wean down FiO2 which is currently at 60% -continue IV Lasix Q 12 hours -continue Solu-Medrol but change to q.day -continue Zosyn and azithromycin (10/20). Vancomycin discontinued -10/20/2022: Preliminary blood culture is also negative x2 -10/20/2022: Preliminary sputum cultures negative -10/20/2022 urine culture pending -10/20/2022 MRSA screen pending -continue bronchodilators -sedated with propofol and Versed, maintain RASS of 0 to -1, daily SBT and SAT (2) Pneumonia: Code(s): J18.9 - Pneumonia, unspecified organism Status: Acute Assessment and Plan: Bilateral infiltrates left greater than right likely related to pneumonia versus pulmonary edema -continue antibiotics as above - SARS-CoV-2 PCR, RSV PCR and influenza A and B negative -urine Legionella and urine pneumococcal antigen pending (3) Acute exacerbation of congestive heart failure: Code(s): I50.9 - Heart failure, unspecified Status: Acute Assessment and Plan: Continue mechanical ventilation, steroids, antibiotics and bronchodilators -continue pulmicort (4) Noncompliance: Code(s): Z91.19 - Patient's noncompliance with other medical treatment and regimen Status: Acute Assessment and Plan: According the records patient's son stated to the ER physician that she has been noncompliant with her medications, diet and oxygen at home (5) Tobacco abuse: Code(s): Z72.0 - Tobacco use Status: Acute Assessment and Plan: Tobacco abuse, continues to smoke 0.5 packs per day for 20 years -will director of counseling on cessation of smoking once patient is extubated (6) Obstructive sleep apnea: Code(s): G47.33 - Obstructive sleep apnea (adult) (pediatric) Status: Acute Assessment and Plan: Noncompliant with CPAP and oxygen at home (7) Diabetes mellitus: Code(s): E11.9 - Type 2 diabetes mellitus without complications Status: Acute Assessment and Plan: Continue Accu-Cheks and sliding scale insulin -hyperglycemia likely related to steroids -increase Lantus dose -check hemoglobin A1c (8) Essential hypertension: Code(s): I10 - Essential (primary) hypertension Status: Acute Assessment and Plan: Hold all antihypertensives as blood pressures are stable (9) Hyperlipidemia: Code(s): E78.5 - Hyperlipidemia, unspecified Status: Acute Assessment and Plan: Continue atorvastatin, which is her home med Plan DVT prophylaxis: Lovenox Stress ulcer prophylaxis: Protonix Nutrition: Tolerating tube feeds Code Status: Full code Critical Care Time Spent: 32 minutes Due to a high probability of clinically significant, life threatening deterioration, the patient required my highest level of preparedness to intervene emergently and I personally spent this critical care time directly and personally managing the patient. This critical care time included obtaining a history; examining the patient; pulse oximetry; ordering and review of studies; arranging urgent treatment with development of a management plan; evaluation of patient's response to treatment; frequent reassessment; and discussions with other providers. It was exclusive of separately billable procedures and treating other patients and teaching time. Please see Assessment and Plan section and the rest of the note for further information on patient
[2022-10-23 12:04] LABS: Glucose Point of Care 351 mg/dl (65-105)
[2022-10-23 18:33] LABS: Glucose Point of Care 271 mg/dl (65-105)
[2022-10-23 21:09] LABS: Glucose Point of Care 236 mg/dl (65-105)
[2022-10-23] MEDS: PROPOFOL IV EMULSION 100 ML 25.22 MG IV CONT (22:20)
[2022-10-23 23:46] LABS: Legionella pneumophila Ag Ur Not Detected (Not Detected)
[2022-10-24] VITALS (46 sets, daily range): BP systolic 98–131; BP diastolic 56–74; PULSE 63–96; RESP 16–18; TEMP 36.8–38.4; O2SAT 93–97
[2022-10-24 00:06] LABS: Glucose Point of Care 212 mg/dl (65-105)
[2022-10-24 00:13] LABS: Pneumococcal Antigen Urine Not Detected (Not Detected)
[2022-10-24] MEDS: PROPOFOL IV EMULSION 100 ML 28.82 MG IV CONT (02:10)
[2022-10-24] MEDS: LEVALBUTEROL NEB 1.25 MG/3 ML INHALATION ×4 (02:42→21:06)
[2022-10-24] MEDS: IPRATROPIUM BR 0.02% INH SOLN 0.5 MG/2.5 ML VIAL INHALATION ×4 (02:42→21:06)
[2022-10-24 04:52] LABS: Basophils Percent Auto 0.2 % (0.2-1.2); Eosinophils Percent Auto 0.3 % (0-4.4); Hematocrit 46.8 % (37.0-47.0); Immature Granulocyte Absolute 0.05 K/mm3 (0.00-0.031); Immature Granulocyte Percent A 0.5 % (0-0.5); Immature Platelet Fraction Pct 4.3 % (0.9-11.2); Lymphocytes Absolute Auto 1.99 K/mm3 (0.9-3.2); Lymphocytes Percent Auto 18.2 % (18.3-44.2); Mean Corpuscular HGB Conc 32.1 g/dl (32-36); Mean Corpuscular Hemoglobin 28.6 pg (26-34); Mean Corpuscular Volume 89.3 fl (80-100); Mean Platelet Volume 9.9 fl (7.4-10.4); Monocytes Percent Auto 8.7 % (2.6-8.5); Neutrophils Absolute Auto 7.9 K/mm3 (1.3-6.7); Neutrophils Percent Auto 72.1 % (45.5-73.1); Platelet Count Result 224 k/mm3 (150-375); Red Blood Count 5.24 M/mm3 (4.2-5.4); Red Cell Distribution Width 16.7 % (11.5-14.5); White Blood Count 10.9 K/mm3 (4.5-10.0)
[2022-10-24] MEDS: PIPERACILLIN/TAZOBACTAM SOD 4.5 GM in SODIUM CHLORIDE 0.9% IV 100 ML 200 ML IVPB ×3 (05:09→17:05)
[2022-10-24 05:10] LABS: Glucose Point of Care 231 mg/dl (65-105)
[2022-10-24] MEDS: INSULIN ASPART (*BKC) 100 UNITS/ML SUB-Q ×5 (05:10→20:26)
[2022-10-24 05:31] LABS: Alveolar/Arterial O2 Gradient 182.2 mmHg; Base Excess ABG 10.3 mEq/l (+/-2.0); Carboxyhemoglobin 0.8 % THb (0-2.0); Fractional Inspired Oxygen 45 %; HCO3 ABG 36.3 mEq/l (22.0-26.0); Methemoglobin ABG 0.3 %THb (0-1.5); Oxygen Content ABG 20.7 %vol (16.0-22.0); Oxyhemoglobin 93.9 % THb (90.0-100.0); PCO2 ABG 52.4 mmHg (35.0-45.0); PO2 FiO2 Ratio Arterial Blood 1.76 %; Total Hemoglobin 15.7 g/dL (12.0-18.0); pH ABG 7.458 (7.350-7.450)
[2022-10-24 05:32] LABS: Arterial Blood Gas Ventilator rate 16 /MIN; Device VENTILATOR; Modified Allen's Test Unable to perform; Site Drawn RIGHT RADIAL
[2022-10-24 05:33] LABS: Arterial Blood Gas PEEP 10 cmH2O; Arterial Blood Gas Tidal Volume 460 ml; Arterial Blood Gas Vent Mode CMV
[2022-10-24 05:47] LABS: Platelet Estimate Adequate (Adequate)
[2022-10-24 05:48] LABS: Schistocytes None Seen (NORMAL)
[2022-10-24] MEDS: PROPOFOL IV EMULSION 100 ML 25.22 MG IV CONT ×5 (05:55→21:33)
[2022-10-24] MEDS: CENTRAL LINE FLUSH 10 ML IV PUSH ×3 (05:56→20:29)
[2022-10-24 07:49] LABS: Glucose Point of Care 207 mg/dl (65-105)
[2022-10-24] MEDS: methylPREDNISolone SOD SUCC 40 MG VIAL IV PUSH (08:24)
[2022-10-24] MEDS: ENOXAPARIN 40 MG/0.4 ML SYRINGE SUB-Q (08:25)
[2022-10-24] MEDS: MONTELUKAST SODIUM 10 MG TABLET PO (08:25)
[2022-10-24] MEDS: PANTOPRAZOLE SODIUM IV 40 MG VIAL IV PUSH ×2 (08:25→20:29)
[2022-10-24] MEDS: ASPIRIN 81 MG CHEWABLE TABLET PO (08:25)
[2022-10-24] MEDS: ATORVASTATIN 40 MG TABLET PO (08:25)
[2022-10-24] MEDS: FUROSEMIDE INJ 40 MG/4 ML VIAL IV PUSH ×2 (08:25→20:21)
[2022-10-24] MEDS: MINERAL OIL/WHITE PETROLATUM OINTMENT 1 APPLIC EACH EYE ×2 (08:26→20:29)
[2022-10-24] MEDS: INSULIN GLARGINE (*BKC) 100 UNITS/ML 45 UNITS SUB-Q (08:32)
[2022-10-24] MEDS: BUDESONIDE RESPULE NEB 0.5 MG/2 ML AMP INHALATION ×2 (08:59→21:05)
[2022-10-24 09:07] LABS: Alanine Aminotransferase 20 U/L (6-35); Albumin Level 4.3 g/dL (3.5-5.1); Alkaline Phosphatase 81 U/L (38-126); Anion Gap 6 mmol/L (8-16); Aspartate Amino Transferase 19 U/L (14-36); Bilirubin,Total 0.8 mg/dL (0.2-1.3); Blood Urea Nitrogen 27 mg/dL (7-17); Calcium 8.9 mg/dL (8.4-10.2); Carbon Dioxide 36 mmol/L (22-30); Chloride 100 mmol/L (98-107); Estimated CRCL calculation 110 ml/min; Estimated Glomerular Filt Rate > 60; Glucose 196 mg/dL (65-110); Magnesium 2.6 mg/dL (1.6-2.3); Phosphorus 4.1 mg/dL (2.5-4.5); Potassium 3.3 mmol/L (3.4-5.0); Sodium 142 mmol/L (137-145); Triglycerides 240 mg/dL (<150)
--- NOTE | 2022-10-24 09:14 | WPDINTPN ---
Progress Note: A&P Assessment and Plan (1) Acute respiratory failure with hypoxia and hypercapnia: Code(s): J96.01 - Acute respiratory failure with hypoxia; J96.02 - Acute respiratory failure with hypercapnia Status: Acute Assessment and Plan: Patient presented with acute shortness of breath, lethargy, ABGs revealed acute hypercapnic and hypoxic respiratory failure requiring intubation on 10/19/2022 upon admission, as she failed BiPAP due to restlessness and altered mental status -ABG and chest x-ray reviewed -decrease PEEP to 8. FiO2 has been weaned down to 45% -continue IV Lasix Q 12 hours -continue Solu-Medrol but change to q.day -continue Zosyn and azithromycin (10/20). Vancomycin discontinued -10/20/2022: Preliminary blood culture is also negative x2 -10/20/2022: Sputum cultures growing Hemophilus influenzae and MSSA -10/20/2022 urine culture pending -10/20/2022 MRSA screen negative -continue bronchodilators -sedated with propofol and Versed, maintain RASS of 0 to -1, daily SBT and SAT (2) Pneumonia: Code(s): J18.9 - Pneumonia, unspecified organism Status: Acute Assessment and Plan: Bilateral infiltrates left greater than right likely related to pneumonia versus pulmonary edema -continue antibiotics as above - SARS-CoV-2 PCR, RSV PCR and influenza A and B negative -urine Legionella and urine pneumococcal antigen negative (3) Acute exacerbation of congestive heart failure: Code(s): I50.9 - Heart failure, unspecified Status: Acute Assessment and Plan: Continue mechanical ventilation, steroids, antibiotics and bronchodilators -continue pulmicort (4) Noncompliance: Code(s): Z91.19 - Patient's noncompliance with other medical treatment and regimen Status: Acute Assessment and Plan: According the records patient's son stated to the ER physician that she has been noncompliant with her medications, diet and oxygen at home (5) Tobacco abuse: Code(s): Z72.0 - Tobacco use Status: Acute Assessment and Plan: Tobacco abuse, continues to smoke 0.5 packs per day for 20 years -will credit support counselor on cessation of smoking once patient is extubated (6) Obstructive sleep apnea: Code(s): G47.33 - Obstructive sleep apnea (adult) (pediatric) Status: Acute Assessment and Plan: Noncompliant with CPAP and oxygen at home (7) Diabetes mellitus: Code(s): E11.9 - Type 2 diabetes mellitus without complications Status: Acute Assessment and Plan: Continue Accu-Cheks and sliding scale insulin -hyperglycemia likely related to steroids -increase Lantus dose -check hemoglobin A1c (8) Essential hypertension: Code(s): I10 - Essential (primary) hypertension Status: Acute Assessment and Plan: Hold all antihypertensives as blood pressures are stable (9) Hyperlipidemia: Code(s): E78.5 - Hyperlipidemia, unspecified Status: Acute Assessment and Plan: Continue atorvastatin, which is her home med Plan DVT prophylaxis: Lovenox Stress ulcer prophylaxis: Protonix Nutrition: Tolerating tube feeds Code Status: Full code Critical Care Time Spent: 30 minutes Due to a high probability of clinically significant, life threatening deterioration, the patient required my highest level of preparedness to intervene emergently and I personally spent this critical care time directly and personally managing the patient. This critical care time included obtaining a history; examining the patient; pulse oximetry; ordering and review of studies; arranging urgent treatment with development of a management plan; evaluation of patient's response to treatment; frequent reassessment; and discussions with other providers. It was exclusive of separately billable procedures and treating other patients and teaching time. Please see Assessment and Plan section and the rest of the note for further information on patient
[2022-10-24] MEDS: POTASSIUM CHLORIDE 20 MEQ PACKET (FOR LIQUID) 40 MEQ FEED TUBE ×2 (09:36→16:33)
--- NOTE | 2022-10-24 10:17 | PM.IMPN ---
Progress Note: A&P Assessment and Plan (1) Acute respiratory failure with hypoxia and hypercapnia: Code(s): J96.01 - Acute respiratory failure with hypoxia; J96.02 - Acute respiratory failure with hypercapnia Status: Acute Assessment and Plan: Patient presented with acute shortness of breath and lethargy. CXR showing LLL airspace disease. ABGs revealed acute hypercapnic and hypoxic respiratory failure requiring intubation on 10/19/2022 upon admission, as she failed BiPAP due to restlessness and altered mental status related to PNA, CHF, RAO complicated by noncompliance. SARS-CoV-2 PCR, RSV PCR and influenza A and B negative started on Zosyn, vancomycin and azithromycin (10/20) BCx 10/20 NGTD. MRSA nasal swab negative for MRSA 10/20 UCx pending. Sputum Cx growing H.flu and MSSA -chest x-ray this morning:Small left pleural effusion with left basilar atelectasis or pneumonia. Significantly improved groundglass disease in the remainder of the lungs. -Continue IV abx -started on steroids which will be continued. Continue bronchodilators -continue MV. Vent management per rod greaser and appreciate their input (2) Pneumonia: Code(s): J18.9 - Pneumonia, unspecified organism Status: Acute Assessment and Plan: CXR showing LLL airspace disease. CT chest 10/21 showing bilateral LL airspace disease but no PE. -sputum culture as mentioned above -urine Legionella and urine pneumococcal antigen negative -continue antibiotics as above (3) Acute exacerbation of congestive heart failure: Code(s): I50.9 - Heart failure, unspecified Status: Acute Assessment and Plan: CXR showing bilateral pulmonary edema. BNP 320 on admission. Lasix IV ordered. She has negative fluid balance and CXR improving. Wean mechanical ventilation as tolerated. Limit total fluid intake (4) Noncompliance: Code(s): Z91.19 - Patient's noncompliance with other medical treatment and regimen Status: Acute Assessment and Plan: According to the records, the patient's son stated to the ER physician that the patient has been noncompliant with her medications, diet and oxygen at home. Discuss benefits of compliance when able. (5) Obstructive sleep apnea: Code(s): G47.33 - Obstructive sleep apnea (adult) (pediatric) Status: Acute Assessment and Plan: Noncompliant with CPAP and oxygen at home (6) Diabetes mellitus: Code(s): E11.9 - Type 2 diabetes mellitus without complications Status: Acute Assessment and Plan: A1c 9.4. The patient's blood glucose was reviewed on 10/24 Glucose remains poorly controlled but better.? Continue AccuCheks covering with sliding scale.? Hypoglycemia protocol available as needed.? Continue Lantus (7) Essential hypertension: Code(s): I10 - Essential (primary) hypertension Status: Acute Assessment and Plan: Patient's blood pressure was reviewed on 10/24 Blood pressure remains well controlled, even soft at times.? Will continue to hold all antihypertensives as blood pressures remain stable. Watch for over-diuresis (8) Hyperlipidemia: Code(s): E78.5 - Hyperlipidemia, unspecified Status: Acute Assessment and Plan: Continue atorvastatin, which is her home med (9) Tobacco abuse: Code(s): Z72.0 - Tobacco use Status: Acute Assessment and Plan: Tobacco abuse, continues to smoke 0.5 packs per day for 20 years -will funeral prearrangement counselor on cessation of smoking once patient is extubated Plan DVT prophylaxis:? Lovenox Stress ulcer prophylaxis:? Protonix Nutrition:? Tolerating tube feeds Subjective Date/time seen: 10/24/22 10:17 Interval history: 51yo female with CHF, DM, obesity, untreated RAO, tobacco abuse and chronic respiratory failure (2-4L) here for altered mental status. She is noncompliant with treatment. She remains intubated and sedated. She is tolerating h
--- NOTE | 2022-10-24 10:25 | PCNFU ---
Nutrition Follow-Up Complete: Inadequate Oral Intake as related to mechanical ventilation as related to NPO. goal: Meet estimated nutritional needs. Patient will continue current goal. Pt current nutrition is Vital HP at 55 ml/hr Last recorded weight is 119.8 kg-stable. Bowel Motility: No BM reported. Labs Reviewed:BUN 23, Cr 0.6,Mg 2.4 Meds Noted: Propofol at 35 mcgs= 666 kcals, Protonix, Solu Medrol, Lantus, Lasix Skin: WNL Additional Notes: Patient remains on mechanical vent and tube feedings of Vital HP at 55 ml/hr and tolerating per nursing. Tube feeding providing 1210 kcals/106 gms protein/1012 ml water. Additional kcal from Propofol at 666 kcls. Total Nutrition: 1876 kcals/106 gms protein/1012 ml water. Meeting 100% of kcal and protein needs. Flush 30 ml q 4 hours. Discussed with [employer] today, No BM since admit, he plans to add laxative today. Agree with diet orders. Will monitor weight, labs, skin, meds, tube feeding tolerance daily in ICU rounds and reassess every Thursday and Thursday.
[2022-10-24 12:25] LABS: Glucose Point of Care 250 mg/dl (65-105)
[2022-10-24] MEDS: MIDAZOLAM 100MG/NS 100ML(*CRX) 100 MG/100 ML BAG IV CONT (12:25)
[2022-10-24 16:30] LABS: Glucose Point of Care 236 mg/dl (65-105)
[2022-10-24] MEDS: ACETAMINOPHEN 325 MG TABLET 650 MG FEED TUBE (20:40)
[2022-10-24 21:02] LABS: Glucose Point of Care 204 mg/dl (65-105)
[2022-10-25] VITALS (35 sets, daily range): BP systolic 99–130; BP diastolic 58–88; PULSE 60–86; RESP 16–23; TEMP 36.8–38.6; O2SAT 91–98
[2022-10-25] MEDS: PIPERACILLIN/TAZOBACTAM SOD 4.5 GM in SODIUM CHLORIDE 0.9% IV 100 ML 200 ML IVPB ×4 (00:05→18:37)
[2022-10-25 00:29] LABS: Glucose Point of Care 194 mg/dl (65-105)
[2022-10-25] MEDS: PROPOFOL IV EMULSION 100 ML 25.22 MG IV CONT ×4 (01:08→20:33)
[2022-10-25] MEDS: LEVALBUTEROL NEB 1.25 MG/3 ML INHALATION ×4 (02:48→22:50)
[2022-10-25] MEDS: IPRATROPIUM BR 0.02% INH SOLN 0.5 MG/2.5 ML VIAL INHALATION ×4 (02:48→22:50)
[2022-10-25] MEDS: INSULIN ASPART (*BKC) 100 UNITS/ML SUB-Q ×3 (04:38→12:01)
[2022-10-25 04:40] LABS: Glucose Point of Care 250 mg/dl (65-105)
[2022-10-25 05:06] LABS: Basophils Percent Auto 0.3 % (0.2-1.2); Eosinophils Absolute Auto 0.1 K/mm3 (0-0.3); Eosinophils Percent Auto 1.1 % (0-4.4); Hematocrit 49.5 % (37.0-47.0); Hemoglobin 15.4 g/dL (12.0-15.0); Immature Granulocyte Absolute 0.08 K/mm3 (0.00-0.031); Immature Granulocyte Percent A 0.7 % (0-0.5); Lymphocytes Absolute Auto 1.94 K/mm3 (0.9-3.2); Lymphocytes Percent Auto 17.6 % (18.3-44.2); Mean Corpuscular HGB Conc 31.1 g/dl (32-36); Mean Corpuscular Hemoglobin 28.5 pg (26-34); Mean Corpuscular Volume 91.7 fl (80-100); Mean Platelet Volume 10.1 fl (7.4-10.4); Monocytes Percent Auto 8.8 % (2.6-8.5); Neutrophils Absolute Auto 7.9 K/mm3 (1.3-6.7); Neutrophils Percent Auto 71.5 % (45.5-73.1); Platelet Count Result 230 k/mm3 (150-375)
[2022-10-25 05:59] LABS: Alveolar/Arterial O2 Gradient 194.8 mmHg; Base Excess ABG 7.9 mEq/l (+/-2.0); Carboxyhemoglobin 1.5 % THb (0-2.0); Fractional Inspired Oxygen 45 %; HCO3 ABG 33.7 mEq/l (22.0-26.0); Methemoglobin ABG 0.2 %THb (0-1.5); Oxygen Content ABG 20.8 %vol (16.0-22.0); Oxygen Saturation ABG 94.1 % (95.0-100.0); Oxyhemoglobin 91.6 % THb (90.0-100.0); PCO2 ABG 50.5 mmHg (35.0-45.0); PO2 ABG 68.6 mmHg (80.0-100.0); PO2 FiO2 Ratio Arterial Blood 1.52 %; Reduced Hemoglobin 6.7 %THb (0-5.0); Total Hemoglobin 16.2 g/dL (12.0-18.0); pH ABG 7.442 (7.350-7.450)
[2022-10-25 06:00] LABS: Device VENTILATOR; Modified Allen's Test Pass; Site Drawn RIGHT RADIAL
[2022-10-25 06:01] LABS: Arterial Blood Gas PEEP 8 cmH2O; Arterial Blood Gas Tidal Volume 420 ml; Arterial Blood Gas Vent Mode CMV; Arterial Blood Gas Ventilator rate 16 /MIN
[2022-10-25] MEDS: CENTRAL LINE FLUSH 10 ML IV PUSH ×3 (06:02→20:38)
[2022-10-25 06:05] LABS: Alanine Aminotransferase 22 U/L (6-35); Albumin Level 4.3 g/dL (3.5-5.1); Alkaline Phosphatase 82 U/L (38-126); Anion Gap 4 mmol/L (8-16); Aspartate Amino Transferase 23 U/L (14-36); Bilirubin,Total 0.8 mg/dL (0.2-1.3); Blood Urea Nitrogen 33 mg/dL (7-17); Calcium 8.8 mg/dL (8.4-10.2); Carbon Dioxide 36 mmol/L (22-30); Chloride 104 mmol/L (98-107); Estimated CRCL calculation 98 ml/min; Estimated Glomerular Filt Rate > 60; Glucose 229 mg/dL (65-110); Magnesium 2.7 mg/dL (1.6-2.3); Phosphorus 3.8 mg/dL (2.5-4.5); Potassium 4.1 mmol/L (3.4-5.0); Sodium 144 mmol/L (137-145)
[2022-10-25 08:04] LABS: Glucose Point of Care 204 mg/dl (65-105)
[2022-10-25] MEDS: BUDESONIDE RESPULE NEB 0.5 MG/2 ML AMP INHALATION ×2 (08:29→22:50)
--- NOTE | 2022-10-25 09:15 | WPDINTPN ---
Progress Note: A&P Assessment and Plan (1) Acute respiratory failure with hypoxia and hypercapnia: Code(s): J96.01 - Acute respiratory failure with hypoxia; J96.02 - Acute respiratory failure with hypercapnia Status: Acute Assessment and Plan: Patient presented with acute shortness of breath, lethargy, ABGs revealed acute hypercapnic and hypoxic respiratory failure requiring intubation on 10/19/2022 upon admission, as she failed BiPAP due to restlessness and altered mental status -ABG and chest x-ray reviewed -currently PEEP to 8. FiO2 has been weaned down to 45% -continue IV Lasix Q 12 hours -continue Solu-Medrol -continue Zosyn and azithromycin (10/20). Vancomycin discontinued -10/20/2022: Preliminary blood culture is also negative x2 -10/20/2022: Sputum cultures growing Hemophilus influenzae and MSSA -10/20/2022 urine culture pending -10/20/2022 MRSA screen negative -continue bronchodilators -patient currently on sedation holiday. Will attempt a weaning trial (2) Pneumonia: Code(s): J18.9 - Pneumonia, unspecified organism Status: Acute Assessment and Plan: Bilateral infiltrates left greater than right likely related to pneumonia versus pulmonary edema -continue antibiotics as above - SARS-CoV-2 PCR, RSV PCR and influenza A and B negative -urine Legionella and urine pneumococcal antigen negative (3) Acute exacerbation of congestive heart failure: Code(s): I50.9 - Heart failure, unspecified Status: Acute Assessment and Plan: Continue mechanical ventilation, steroids, antibiotics and bronchodilators -continue pulmicort (4) Noncompliance: Code(s): Z91.19 - Patient's noncompliance with other medical treatment and regimen Status: Acute Assessment and Plan: According the records patient's son stated to the ER physician that she has been noncompliant with her medications, diet and oxygen at home (5) Tobacco abuse: Code(s): Z72.0 - Tobacco use Status: Acute Assessment and Plan: Tobacco abuse, continues to smoke 0.5 packs per day for 20 years -will consumer credit counselor on cessation of smoking once patient is extubated (6) Obstructive sleep apnea: Code(s): G47.33 - Obstructive sleep apnea (adult) (pediatric) Status: Acute Assessment and Plan: Noncompliant with CPAP and oxygen at home (7) Diabetes mellitus: Code(s): E11.9 - Type 2 diabetes mellitus without complications Status: Acute Assessment and Plan: Continue Accu-Cheks and sliding scale insulin -hyperglycemia likely related to steroids -continue Lantus -9.4hemoglobin A1c (8) Essential hypertension: Code(s): I10 - Essential (primary) hypertension Status: Acute Assessment and Plan: Hold all antihypertensives as blood pressures is stable (9) Hyperlipidemia: Code(s): E78.5 - Hyperlipidemia, unspecified Status: Acute Assessment and Plan: Continue atorvastatin, which is her home med (10) Constipation: Code(s): K59.00 - Constipation, unspecified Status: Acute Assessment and Plan: Ordered miraLax Colace and p.r.n. Dulcolax Plan DVT prophylaxis: Lovenox Stress ulcer prophylaxis: Protonix Nutrition: Tolerating tube feeds Code Status: Full code Critical Care Time Spent: 30 minutes Due to a high probability of clinically significant, life threatening deterioration, the patient required my highest level of preparedness to intervene emergently and I personally spent this critical care time directly and personally managing the patient. This critical care time included obtaining a history; examining the patient; pulse oximetry; ordering and review of studies; arranging urgent treatment with development of a management plan; evaluation of patient's response to treatment; frequent reassessment; and discussions with other providers. It was exclusive of separately billable procedures and treating other
[2022-10-25] MEDS: FUROSEMIDE INJ 40 MG/4 ML VIAL IV PUSH (09:26)
[2022-10-25] MEDS: DOCUSATE SODIUM LIQ 100 MG/10 ML UDC FEED TUBE ×2 (09:26→20:38)
[2022-10-25] MEDS: PANTOPRAZOLE SODIUM IV 40 MG VIAL IV PUSH ×2 (09:27→20:38)
[2022-10-25] MEDS: polyethylene glycoL 3350 17 GM POWD.PACK PO (09:27)
[2022-10-25] MEDS: methylPREDNISolone SOD SUCC 40 MG VIAL IV PUSH (09:28)
[2022-10-25] MEDS: DULoxetine HCL 60 MG CAPSULE.DR PO (09:28)
[2022-10-25] MEDS: MONTELUKAST SODIUM 10 MG TABLET PO (09:28)
[2022-10-25] MEDS: ASPIRIN 81 MG CHEWABLE TABLET PO (09:28)
[2022-10-25] MEDS: ATORVASTATIN 40 MG TABLET PO (09:28)
[2022-10-25] MEDS: ENOXAPARIN 40 MG/0.4 ML SYRINGE SUB-Q (09:28)
[2022-10-25] MEDS: MINERAL OIL/WHITE PETROLATUM OINTMENT 1 APPLIC EACH EYE ×2 (09:29→20:38)
[2022-10-25] MEDS: INSULIN GLARGINE (*BKC) 100 UNITS/ML 45 UNITS SUB-Q (09:41)
[2022-10-25 11:54] LABS: Glucose Point of Care 314 mg/dl (65-105)
[2022-10-25] MEDS: ACETAMINOPHEN 325 MG TABLET 650 MG FEED TUBE (12:01)
--- NOTE | 2022-10-25 16:22 | PM.IMPN ---
Progress Note: A&P Assessment and Plan (1) Acute respiratory failure with hypoxia and hypercapnia: Code(s): J96.01 - Acute respiratory failure with hypoxia; J96.02 - Acute respiratory failure with hypercapnia Status: Acute Assessment and Plan: Patient presented with acute shortness of breath and lethargy. CXR showing LLL airspace disease. ABGs revealed acute hypercapnic and hypoxic respiratory failure requiring intubation on 10/19/2022 upon admission, as she failed BiPAP due to restlessness and altered mental status related to PNA, CHF, RAO complicated by noncompliance. SARS-CoV-2 PCR, RSV PCR and influenza A and B negative started on Zosyn, vancomycin and azithromycin (10/20) BCx 10/20 NGTD. MRSA nasal swab negative for MRSA 10/20 UCx pending. Sputum Cx growing H.flu and MSSA -chest x-ray yesterday morning: Small left pleural effusion with left basilar atelectasis or pneumonia. Significantly improved groundglass disease in the remainder of the lungs. -Continue IV abx. Continue lasix IV. -started on steroids which will be continued. Continue bronchodilators -continue MV. Vent management per geoscience laboratory technician and appreciate their input (2) Pneumonia: Code(s): J18.9 - Pneumonia, unspecified organism Status: Acute Assessment and Plan: CXR showing LLL airspace disease. CT chest 10/21 showing bilateral LL airspace disease but no PE. -sputum culture as mentioned above -urine Legionella and urine pneumococcal antigen negative -now having fevers. HFlu from sputum sensitivities still not back; ESBL? -continue antibiotics; consider changing to Primaxin. Repeat cultures. Add back Vanco? (3) Acute exacerbation of congestive heart failure: Code(s): I50.9 - Heart failure, unspecified Status: Acute Assessment and Plan: CXR showing bilateral pulmonary edema. BNP 320 on admission. Lasix 40mg IV ordered Q12hr. Frequency decreased today. She has negative fluid balance and CXR improving. Wean mechanical ventilation as tolerated. Limit total fluid intake (4) Noncompliance: Code(s): Z91.19 - Patient's noncompliance with other medical treatment and regimen Status: Acute Assessment and Plan: According to the records, the patient's son stated to the ER physician that the patient has been noncompliant with her medications, diet and oxygen at home. Discuss benefits of compliance when able. (5) Obstructive sleep apnea: Code(s): G47.33 - Obstructive sleep apnea (adult) (pediatric) Status: Acute Assessment and Plan: Noncompliant with CPAP and oxygen at home (6) Diabetes mellitus: Code(s): E11.9 - Type 2 diabetes mellitus without complications Status: Acute Assessment and Plan: A1c 9.4. The patient's blood glucose was reviewed on 10/25 Glucose remains poorly controlled Continue AccuCheks covering with sliding scale.? Hypoglycemia protocol available as needed.? Continue Lantus but change to q12hr (7) Essential hypertension: Code(s): I10 - Essential (primary) hypertension Status: Acute Assessment and Plan: Patient's blood pressure was reviewed on 10/25 Blood pressure remains well controlled, even soft at times.? Will continue to hold all antihypertensives as blood pressures remain stable. (8) Hyperlipidemia: Code(s): E78.5 - Hyperlipidemia, unspecified Status: Acute Assessment and Plan: Continue atorvastatin, which is her home med (9) Tobacco abuse: Code(s): Z72.0 - Tobacco use Status: Acute Assessment and Plan: Tobacco abuse, continues to smoke 0.5 packs per day for 20 years -will international student counselor on cessation of smoking once patient is extubated Plan DVT prophylaxis:? Lovenox Stress ulcer prophylaxis:? Protonix Nutrition:? Tolerating tube feeds Subjective Date/time seen: 10/25/22 16:22 Interval history: 51yo female with CHF, DM, obesity, untreated RAO
[2022-10-25 17:16] LABS: Glucose Point of Care 196 mg/dl (65-105)
[2022-10-25] MEDS: INSULIN GLARGINE (*BKC) 100 UNITS/ML 15 UNITS SUB-Q (20:39)
[2022-10-25 20:57] LABS: Glucose Point of Care 187 mg/dl (65-105)
[2022-10-26] VITALS (30 sets, daily range): BP systolic 100–127; BP diastolic 55–85; PULSE 54–93; RESP 13–25; TEMP 36.4–37.5; O2SAT 91–99
[2022-10-26 00:18] LABS: Glucose Point of Care 282 mg/dl (65-105)
[2022-10-26] MEDS: PROPOFOL IV EMULSION 100 ML 25.22 MG IV CONT ×3 (00:29→08:26)
[2022-10-26] MEDS: INSULIN ASPART (*BKC) 100 UNITS/ML SUB-Q ×5 (00:30→17:13)
[2022-10-26] MEDS: PIPERACILLIN/TAZOBACTAM SOD 4.5 GM in SODIUM CHLORIDE 0.9% IV 100 ML 200 ML IVPB ×4 (00:30→17:14)
[2022-10-26 01:01] LABS: Appearance Urine Clear (Clear); Bacteria Urine None Seen /hpf; Bilirubin Urine Negative (Negative); Blood Urine 2+ (Negative); Color Urine Yellow (Yellow); Glucose Urine UA Negative (Negative); Ketones Urine Negative (Negative); Leukocyte Esterase Ur Negative LEU/UL (Negative); Nitrate Urine Negative (Negative); Non Pathogenic Casts 0-2; Protein Urine 1+ mg/dL (Negative); RBC Urine 21-50 /hpf (0-2); Specific Grav Ur 1.021 (1.001-1.035); Squamous Epithelial Cell Urine None seen /hpf (Few); WBC Urine 0-5 /hpf
[2022-10-26 01:10] LABS: Add Urine Microscopic? YES
[2022-10-26] MEDS: LEVALBUTEROL NEB 1.25 MG/3 ML INHALATION ×4 (03:17→20:37)
[2022-10-26] MEDS: IPRATROPIUM BR 0.02% INH SOLN 0.5 MG/2.5 ML VIAL INHALATION ×4 (03:18→20:37)
[2022-10-26 03:46] LABS: Glucose Point of Care 259 mg/dl (65-105)
[2022-10-26 04:04] LABS: Hematocrit 52.2 % (37.0-47.0); Mean Corpuscular HGB Conc 30.7 g/dl (32-36); Mean Corpuscular Hemoglobin 28.4 pg (26-34); Mean Corpuscular Volume 92.6 fl (80-100); Mean Platelet Volume 10.3 fl (7.4-10.4); Platelet Count Result 248 k/mm3 (150-375); Red Blood Count 5.64 M/mm3 (4.2-5.4); Red Cell Distribution Width 16.7 % (11.5-14.5); White Blood Count 11.8 K/mm3 (4.5-10.0)
[2022-10-26 04:12] LABS: Triglycerides 297 mg/dL (<150)
[2022-10-26 04:13] LABS: Alanine Aminotransferase 27 U/L (6-35); Albumin Level 4.4 g/dL (3.5-5.1); Alkaline Phosphatase 86 U/L (38-126); Anion Gap 4 mmol/L (8-16); Aspartate Amino Transferase 23 U/L (14-36); Bilirubin,Total 1.1 mg/dL (0.2-1.3); Blood Urea Nitrogen 40 mg/dL (7-17); Calcium 9.4 mg/dL (8.4-10.2); Carbon Dioxide 34 mmol/L (22-30); Chloride 107 mmol/L (98-107); Estimated CRCL calculation 97 ml/min; Estimated Glomerular Filt Rate > 60; Glucose 260 mg/dL (65-110); Sodium 145 mmol/L (137-145)
[2022-10-26 05:27] LABS: Alveolar/Arterial O2 Gradient 124.3 mmHg; Base Excess ABG 7.3 mEq/l (+/-2.0); Fractional Inspired Oxygen 40 %; HCO3 ABG 33.7 mEq/l (22.0-26.0); Oxygen Content ABG 22.4 %vol (16.0-22.0); Oxygen Saturation ABG 97.5 % (95.0-100.0); Oxyhemoglobin 95.3 % THb (90.0-100.0); PCO2 ABG 53.3 mmHg (35.0-45.0); PO2 ABG 99.6 mmHg (80.0-100.0); PO2 FiO2 Ratio Arterial Blood 2.49 %; Total Hemoglobin 16.7 g/dL (12.0-18.0); pH ABG 7.419 (7.350-7.450)
[2022-10-26 05:36] LABS: Arterial Blood Gas Ventilator rate 16 /MIN; Device VENTILATOR; Modified Allen's Test Pass; Site Drawn RIGHT RADIAL
[2022-10-26 05:37] LABS: Arterial Blood Gas PEEP 8 cmH2O; Arterial Blood Gas Tidal Volume 420 ml; Arterial Blood Gas Vent Mode CMV
[2022-10-26] MEDS: CENTRAL LINE FLUSH 10 ML IV PUSH ×3 (06:31→21:26)
[2022-10-26] MEDS: BUDESONIDE RESPULE NEB 0.5 MG/2 ML AMP INHALATION ×2 (08:21→20:37)
[2022-10-26] MEDS: ASPIRIN 81 MG CHEWABLE TABLET PO (08:46)
[2022-10-26] MEDS: MINERAL OIL/WHITE PETROLATUM OINTMENT 1 APPLIC EACH EYE (08:46)
[2022-10-26] MEDS: DULoxetine HCL 60 MG CAPSULE.DR PO (08:46)
[2022-10-26] MEDS: ENOXAPARIN 40 MG/0.4 ML SYRINGE SUB-Q (08:47)
[2022-10-26] MEDS: DOCUSATE SODIUM LIQ 100 MG/10 ML UDC FEED TUBE ×2 (08:47→21:25)
[2022-10-26] MEDS: ATORVASTATIN 40 MG TABLET PO (08:47)
[2022-10-26] MEDS: FUROSEMIDE INJ 40 MG/4 ML VIAL IV PUSH (08:47)
[2022-10-26] MEDS: methylPREDNISolone SOD SUCC 40 MG VIAL IV PUSH (08:47)
[2022-10-26] MEDS: polyethylene glycoL 3350 17 GM POWD.PACK PO (08:48)
[2022-10-26] MEDS: PANTOPRAZOLE SODIUM IV 40 MG VIAL IV PUSH ×2 (08:48→21:25)
[2022-10-26] MEDS: MONTELUKAST SODIUM 10 MG TABLET PO (08:48)
[2022-10-26] MEDS: INSULIN GLARGINE (*BKC) 100 UNITS/ML 45 UNITS SUB-Q (08:54)
--- NOTE | 2022-10-26 08:58 | WPDINTPN ---
Progress Note: A&P Assessment and Plan (1) Acute respiratory failure with hypoxia and hypercapnia: Code(s): J96.01 - Acute respiratory failure with hypoxia; J96.02 - Acute respiratory failure with hypercapnia Status: Acute Assessment and Plan: Patient presented with acute shortness of breath, lethargy, ABGs revealed acute hypercapnic and hypoxic respiratory failure requiring intubation on 10/19/2022 upon admission, as she failed BiPAP due to restlessness and altered mental status -ABG reviewed -chest x-ray reviewed Na improved -currently PEEP to 8. FiO2 has been weaned down to 45% -continue IV Lasix Q 12 hours -continue Solu-Medrol -continue Zosyn and azithromycin (10/20). Vancomycin discontinued -10/20/2022: Preliminary blood culture is also negative x2 -10/20/2022: Sputum cultures growing Hemophilus influenzae and MSSA -10/20/2022 urine culture pending -10/20/2022 MRSA screen negative -continue bronchodilators -10/25 she failed weaning trial due to high RSBI low tidal volumes -10/26patient placed on weaning trial again today (2) Pneumonia: Code(s): J18.9 - Pneumonia, unspecified organism Status: Acute Assessment and Plan: Bilateral infiltrates left greater than right likely related to pneumonia versus pulmonary edema -continue antibiotics as above - SARS-CoV-2 PCR, RSV PCR and influenza A and B negative -urine Legionella and urine pneumococcal antigen negative (3) Fever: Code(s): R50.9 - Fever, unspecified Status: Acute Assessment and Plan: Febrile overnight although white count remains close to normal Repeat blood culture sent yesterday 10/25 Will check UA urine culture and change Espino (4) Acute exacerbation of congestive heart failure: Code(s): I50.9 - Heart failure, unspecified Status: Acute Assessment and Plan: Continue mechanical ventilation, steroids, antibiotics and bronchodilators -continue pulmicort (5) Noncompliance: Code(s): Z91.19 - Patient's noncompliance with other medical treatment and regimen Status: Acute Assessment and Plan: According the records patient's son stated to the ER physician that she has been noncompliant with her medications, diet and oxygen at home (6) Tobacco abuse: Code(s): Z72.0 - Tobacco use Status: Acute Assessment and Plan: Tobacco abuse, continues to smoke 0.5 packs per day for 20 years -will service counselor on cessation of smoking once patient is extubated (7) Obstructive sleep apnea: Code(s): G47.33 - Obstructive sleep apnea (adult) (pediatric) Status: Acute Assessment and Plan: Noncompliant with CPAP and oxygen at home (8) Diabetes mellitus: Code(s): E11.9 - Type 2 diabetes mellitus without complications Status: Acute Assessment and Plan: Continue Accu-Cheks and sliding scale insulin -hyperglycemia likely related to steroids -continue Lantus -9.4hemoglobin A1c (9) Essential hypertension: Code(s): I10 - Essential (primary) hypertension Status: Acute Assessment and Plan: Hold all antihypertensives as blood pressures is stable (10) Hyperlipidemia: Code(s): E78.5 - Hyperlipidemia, unspecified Status: Acute Assessment and Plan: Continue atorvastatin, which is her home med (11) Constipation: Code(s): K59.00 - Constipation, unspecified Status: Acute Assessment and Plan: Ordered miraLax Colace and p.r.n. Dulcolax Plan DVT prophylaxis: Lovenox Stress ulcer prophylaxis: Protonix Nutrition: Tolerating tube feeds Code Status: Full code Critical Care Time Spent: 30 minutes Due to a high probability of clinically significant, life threatening deterioration, the patient required my highest level of preparedness to intervene emergently and I personally spent this critical care time directly and personally managing the patient. This critical care time included obtaining a
[2022-10-26 09:27] LABS: Glucose Point of Care 259 mg/dl (65-105)
[2022-10-26 09:36] LABS: Alveolar/Arterial O2 Gradient 141.4 mmHg; Base Excess ABG 6.9 mEq/l (+/-2.0); Fractional Inspired Oxygen 40 %; Oxygen Saturation ABG 95.2 % (95.0-100.0); Oxyhemoglobin 93.8 % THb (90.0-100.0); PCO2 ABG 57.2 mmHg (35.0-45.0); PO2 FiO2 Ratio Arterial Blood 1.95 %; Total Hemoglobin 16.7 g/dL (12.0-18.0); pH ABG 7.392 (7.350-7.450)
[2022-10-26 09:39] LABS: Arterial Blood Gas Vent Mode PRESSURE SUPPORT; Device VENTILATOR; Modified Allen's Test Pass; Site Drawn RIGHT RADIAL
[2022-10-26 09:40] LABS: Arterial Blood Gas PEEP 8 cmH2O; Arterial Blood Gas Pressure Support 5 cmH2O
--- NOTE | 2022-10-26 12:22 | PM.IMPN ---
Progress Note: A&P Assessment and Plan (1) Acute respiratory failure with hypoxia and hypercapnia: Code(s): J96.01 - Acute respiratory failure with hypoxia; J96.02 - Acute respiratory failure with hypercapnia Status: Acute Assessment and Plan: Patient presented with acute shortness of breath and lethargy. CXR showing LLL airspace disease. ABGs revealed acute hypercapnic and hypoxic respiratory failure requiring intubation on 10/19/22 upon admission, as she failed BiPAP due to restlessness and altered mental status related to PNA, CHF, RAO complicated by noncompliance. SARS-CoV-2 PCR, RSV PCR and influenza A and B negative started on Zosyn, vancomycin and azithromycin (10/20) BCx 10/20 NGTD. MRSA nasal swab negative for MRSA 10/20 UCx pending. Sputum Cx growing H.flu and MSSA; HFlu sensitivity pending Having fevers so BCx repeated 10/25 and are NGTD -chest x-ray this morning: Diffuse lung disease with interval improvement, consistent with pneumonia and/or pulmonary edema. -Continue IV abx to complete 7 day course. -Continue Lasix IV -Continue steroids. Increase activity (2) Pneumonia: Code(s): J18.9 - Pneumonia, unspecified organism Status: Acute Assessment and Plan: CXR showing LLL airspace disease. CT chest 10/21 showing bilateral LL airspace disease but no PE. -sputum culture as mentioned above -urine Legionella and urine pneumococcal antigen negative -recurrent fevers 10/25. HFlu from sputum sensitivities still not back -continue current antibiotics since fevers waning. Continue to monitor (3) Acute exacerbation of congestive heart failure: Code(s): I50.9 - Heart failure, unspecified Status: Acute Assessment and Plan: CXR showing pulmonary edema. BNP 320 on admission. -On Lasix IV with clinical improvement and negative fluid balance -CXR improving. -Extubated today. Fluid restrict. (4) Noncompliance: Code(s): Z91.19 - Patient's noncompliance with other medical treatment and regimen Status: Acute Assessment and Plan: According to the records, the patient's son stated to the ER physician that the patient has been noncompliant with her medications, diet and oxygen at home. Discussed benefits of compliance with her home therapy. (5) Obstructive sleep apnea: Code(s): G47.33 - Obstructive sleep apnea (adult) (pediatric) Status: Acute Assessment and Plan: Noncompliant with CPAP and oxygen at home. Encouraged compliance (6) Diabetes mellitus: Code(s): E11.9 - Type 2 diabetes mellitus without complications Status: Acute Assessment and Plan: A1c 9.4. The patient's blood glucose was reviewed on 10/26 Glucose remains poorly controlled felt partly related to steroids Continue AccuCheks covering with sliding scale.? Hypoglycemia protocol available as needed.? Continue Lantus (7) Essential hypertension: Code(s): I10 - Essential (primary) hypertension Status: Acute Assessment and Plan: Patient's blood pressure was reviewed on 10/26 Blood pressure remains well controlled, even soft at times.? Will continue to hold all antihypertensives as blood pressures remain stable. (8) Hyperlipidemia: Code(s): E78.5 - Hyperlipidemia, unspecified Status: Acute Assessment and Plan: Continue atorvastatin, which is her home med (9) Tobacco abuse: Code(s): Z72.0 - Tobacco use Status: Acute Assessment and Plan: Patient smokes 0.5 packs per day for 20 years. Will educate patient was educated about the benefits of smoking cessation. Plan DVT prophylaxis:? Lovenox Stress ulcer prophylaxis:? Protonix Subjective Date/time seen: 10/26/22 12:22 Interval history: 51yo female with CHF, DM, obesity, untreated RAO, tobacco abuse and chronic respiratory failure (2-4L) here for altered mental status. She is noncompliant with treatment. Fever r
[2022-10-26 13:14] LABS: Glucose Point of Care 231 mg/dl (65-105)
[2022-10-26 16:56] LABS: Glucose Point of Care 233 mg/dl (65-105)
[2022-10-26 21:43] LABS: Glucose Point of Care 148 mg/dl (65-105)
[2022-10-27] VITALS (19 sets, daily range): BP systolic 106–191; BP diastolic 63–169; PULSE 63–72; RESP 12–21; TEMP 36.3–36.9; O2SAT 94–98
[2022-10-27] MEDS: PIPERACILLIN/TAZOBACTAM SOD 4.5 GM in SODIUM CHLORIDE 0.9% IV 100 ML 200 ML IVPB ×2 (00:54→06:01)
[2022-10-27] MEDS: LEVALBUTEROL NEB 1.25 MG/3 ML INHALATION ×3 (02:49→14:23)
[2022-10-27] MEDS: IPRATROPIUM BR 0.02% INH SOLN 0.5 MG/2.5 ML VIAL INHALATION ×3 (02:49→14:23)
[2022-10-27 05:12] LABS: Hematocrit 51.4 % (37.0-47.0); Hemoglobin 15.9 g/dL (12.0-15.0); Mean Corpuscular HGB Conc 30.9 g/dl (32-36); Mean Corpuscular Hemoglobin 28.3 pg (26-34); Mean Corpuscular Volume 91.5 fl (80-100); Mean Platelet Volume 10.2 fl (7.4-10.4); Platelet Count Result 241 k/mm3 (150-375); Red Blood Count 5.62 M/mm3 (4.2-5.4); Red Cell Distribution Width 16.7 % (11.5-14.5); White Blood Count 16.8 K/mm3 (4.5-10.0)
[2022-10-27] MEDS: CENTRAL LINE FLUSH 10 ML IV PUSH ×3 (06:00→22:35)
[2022-10-27 07:41] LABS: Glucose Point of Care 158 mg/dl (65-105)
[2022-10-27 08:00] LABS: Alanine Aminotransferase 29 U/L (6-35); Albumin Level 4.9 g/dL (3.5-5.1); Alkaline Phosphatase 94 U/L (38-126); Anion Gap 8 mmol/L (8-16); Aspartate Amino Transferase 27 U/L (14-36); Bilirubin,Total 1.6 mg/dL (0.2-1.3); Blood Urea Nitrogen 36 mg/dL (7-17); Calcium 9.9 mg/dL (8.4-10.2); Carbon Dioxide 34 mmol/L (22-30); Chloride 101 mmol/L (98-107); Estimated CRCL calculation 109 ml/min; Estimated Glomerular Filt Rate > 60; Glucose 191 mg/dL (65-110); Magnesium 2.5 mg/dL (1.6-2.3); Potassium 3.8 mmol/L (3.4-5.0); Sodium 143 mmol/L (137-145)
--- NOTE | 2022-10-27 08:10 | WPDINTPN ---
Progress Note: A&P Assessment and Plan (1) Acute respiratory failure with hypoxia and hypercapnia: Code(s): J96.01 - Acute respiratory failure with hypoxia; J96.02 - Acute respiratory failure with hypercapnia Status: Acute Assessment and Plan: Patient presented with acute shortness of breath, lethargy, ABGs revealed acute hypercapnic and hypoxic respiratory failure requiring intubation on 10/19/2022 upon admission, as she failed BiPAP due to restlessness and altered mental status 10/26 extubated after a successful weaning trial Doing well on nasal cannula. BiPAP p.r.n. and at night for now Most recent chest x-ray reviewed -continue Lasix but decrease dose -change Solu-Medrol to p.o. prednisone and decrease dose -she has completed a course of Zosyn and azithromycin (10/20). Vancomycin discontinued -10/20/2022: Preliminary blood culture is also negative x2 -10/20/2022: Sputum cultures growing Hemophilus influenzae and MSSA -10/20/2022 urine culture pending -10/20/2022 MRSA screen negative -continue bronchodilators (2) Pneumonia: Code(s): J18.9 - Pneumonia, unspecified organism Status: Acute Assessment and Plan: Bilateral infiltrates left greater than right likely related to pneumonia versus pulmonary edema -continue antibiotics as above - SARS-CoV-2 PCR, RSV PCR and influenza A and B negative -urine Legionella and urine pneumococcal antigen negative (3) Fever: Code(s): R50.9 - Fever, unspecified Status: Acute Assessment and Plan: 10/26 Febrile overnight although white count remains close to normal Repeat blood culture sent yesterday 10/25 Espino removed Afebrile now (4) Acute exacerbation of congestive heart failure: Code(s): I50.9 - Heart failure, unspecified Status: Acute Assessment and Plan: Continue mechanical ventilation, steroids, antibiotics and bronchodilators -continue pulmicort (5) Noncompliance: Code(s): Z91.19 - Patient's noncompliance with other medical treatment and regimen Status: Acute Assessment and Plan: According the records patient's son stated to the ER physician that she has been noncompliant with her medications, diet and oxygen at home (6) Tobacco abuse: Code(s): Z72.0 - Tobacco use Status: Acute Assessment and Plan: Tobacco abuse, continues to smoke 0.5 packs per day for 20 years -will herb counselor on cessation of smoking once patient is extubated (7) Obstructive sleep apnea: Code(s): G47.33 - Obstructive sleep apnea (adult) (pediatric) Status: Acute Assessment and Plan: Noncompliant with CPAP and oxygen at home Patient was encouraged and counseled to wear CPAP/BiPAP at night (8) Diabetes mellitus: Code(s): E11.9 - Type 2 diabetes mellitus without complications Status: Acute Assessment and Plan: Continue Accu-Cheks and sliding scale insulin -hyperglycemia likely related to steroids -continue Lantus but decrease dose -9.4hemoglobin A1c (9) Essential hypertension: Code(s): I10 - Essential (primary) hypertension Status: Acute Assessment and Plan: Hold all antihypertensives as blood pressures is stable (10) Hyperlipidemia: Code(s): E78.5 - Hyperlipidemia, unspecified Status: Acute Assessment and Plan: Continue atorvastatin, which is her home med (11) Constipation: Code(s): K59.00 - Constipation, unspecified Status: Acute Assessment and Plan: Ordered miraLax Colace and p.r.n. Dulcolax Plan DVT prophylaxis: Lovenox Stress ulcer prophylaxis: Protonix Nutrition: Diabetic diet Code Status: Full code Incentive spirometry, up in chair, PT OT consult Transfer out ICU today Subjective Date/time seen: 10/27/22 Overnight events reviewed. Patient was extubated yesterday after a successful weaning trial. She has done well and is on nasal cannula. Afebrile Refused to wear BiPAP overnight
[2022-10-27] MEDS: ENOXAPARIN 40 MG/0.4 ML SYRINGE SUB-Q (09:00)
[2022-10-27] MEDS: ATORVASTATIN 40 MG TABLET PO (09:00)
[2022-10-27] MEDS: DULoxetine HCL 60 MG CAPSULE.DR PO (09:00)
[2022-10-27] MEDS: FUROSEMIDE INJ 40 MG/4 ML VIAL IV PUSH (09:00)
[2022-10-27] MEDS: MONTELUKAST SODIUM 10 MG TABLET PO (09:00)
[2022-10-27] MEDS: ASPIRIN 81 MG CHEWABLE TABLET PO (09:00)
[2022-10-27] MEDS: PANTOPRAZOLE SODIUM IV 40 MG VIAL IV PUSH (09:00)
[2022-10-27] MEDS: BUDESONIDE RESPULE NEB 0.5 MG/2 ML AMP INHALATION (09:26)
[2022-10-27] MEDS: predniSONE 20 MG TABLET PO (09:47)
[2022-10-27] MEDS: INSULIN GLARGINE (*BKC) 100 UNITS/ML 25 UNITS SUB-Q (09:47)
--- NOTE | 2022-10-27 10:30 | PCFNICU ---
ICU Rounding Note: Pt current nutrition is DBCC/FR 1800 ml Last recorded weight is 116.6 kg. Bowel Motility:+BM reported 10/27 Labs Reviewed:BUN 36, Glu 191, Mg 2.5 Meds Noted:Lantus, Cymbalta, Lasix. Skin: WNL Additional Notes: Patient has been extubated 10/26. She is tolerating diet well, eating greater than 75% of meals. Agree with diet orders. No further nutritional needs at this time. Monitoring: every 7 days.
[2022-10-27] MEDS: INSULIN ASPART (*BKC) 100 UNITS/ML SUB-Q ×2 (11:55→17:23)
[2022-10-27 11:56] LABS: Glucose Point of Care 293 mg/dl (65-105)
--- NOTE | 2022-10-27 14:21 | PM.IMPN ---
Progress Note: A&P Assessment and Plan (1) Acute respiratory failure with hypoxia and hypercapnia: Code(s): J96.01 - Acute respiratory failure with hypoxia; J96.02 - Acute respiratory failure with hypercapnia Status: Acute Assessment and Plan: Patient presented with acute shortness of breath and lethargy. CXR showing LLL airspace disease. ABGs revealed acute hypercapnic and hypoxic respiratory failure requiring intubation on 10/19/22 upon admission, as she failed BiPAP due to restlessness and altered mental status related to PNA, CHF, RAO complicated by noncompliance. SARS-CoV-2 PCR, RSV PCR and influenza A and B negative started on Zosyn, vancomycin and azithromycin (10/20) BCx 10/20 NGTD. MRSA nasal swab negative for MRSA 10/20 UCx pending. Sputum Cx growing H.flu and MSSA; HFlu sensitivity pending Having fevers so BCx repeated 10/25 and are NGTD -chest x-ray 10/26: Diffuse lung disease with interval improvement, consistent with pneumonia and/or pulmonary edema. -extubated on 10/26/22 -Completed IV abx x 7 day course. -Continue Lasix IV -Continue steroids. Increase activity (2) Pneumonia: Code(s): J18.9 - Pneumonia, unspecified organism Status: Acute Assessment and Plan: CXR showing LLL airspace disease. CT chest 10/21 showing bilateral LL airspace disease but no PE. -sputum culture as mentioned above -urine Legionella and urine pneumococcal antigen negative -recurrent fevers 10/25 but resolved. -completed abx course. Continue to monitor (3) Acute exacerbation of congestive heart failure: Code(s): I50.9 - Heart failure, unspecified Status: Acute Assessment and Plan: CXR showing pulmonary edema. BNP 320 on admission. -On Lasix IV with clinical improvement and negative fluid balance -CXR improving. -Extubated 10/26. Continue fluid restriction. (4) Noncompliance: Code(s): Z91.19 - Patient's noncompliance with other medical treatment and regimen Status: Acute Assessment and Plan: According to the records, the patient's son stated to the ER physician that the patient has been noncompliant with her medications, diet and oxygen at home. Discussed benefits of compliance with her home therapy. (5) Obstructive sleep apnea: Code(s): G47.33 - Obstructive sleep apnea (adult) (pediatric) Status: Acute Assessment and Plan: Noncompliant with CPAP and oxygen at home. Encouraged compliance (6) Diabetes mellitus: Code(s): E11.9 - Type 2 diabetes mellitus without complications Status: Acute Assessment and Plan: A1c 9.4. The patient's blood glucose was reviewed on 10/27 Glucose remains poorly controlled felt partly related to steroids Continue AccuCheks covering with sliding scale.? Hypoglycemia protocol available as needed.? Continue Lantus (7) Essential hypertension: Code(s): I10 - Essential (primary) hypertension Status: Acute Assessment and Plan: Patient's blood pressure was reviewed on 10/27 Blood pressure remains well controlled, even soft at times.? Will continue to monitor (8) Hyperlipidemia: Code(s): E78.5 - Hyperlipidemia, unspecified Status: Acute Assessment and Plan: Continue atorvastatin, which is her home med (9) Tobacco abuse: Code(s): Z72.0 - Tobacco use Status: Acute Assessment and Plan: Patient smokes 0.5 packs per day for 20 years. Patient was educated about the benefits of smoking cessation. Plan DVT prophylaxis:? Lovenox Stress ulcer prophylaxis:? Protonix Subjective Date/time seen: 10/27/22 14:21 Interval history: 51yo female with CHF, DM, obesity, untreated ROA, tobacco abuse and chronic respiratory failure (2-4L) here for altered mental status. She is noncompliant with treatment. No complaints. Did not wear the BiPAP last night. No CP. Eating okay. Exam Narrative: AF 97.5 113/100 66 18 9
--- NOTE | 2022-10-27 16:56 | PC.NURSE ---
Patient transferred to room 313 per wheelchair. Report given to EMELY Hope. All questions answered.
--- NOTE | 2022-10-27 17:05 | PC.NURSE ---
This patient, Watson Catalan, was received from [ICU-5] on 10/27/22 at 1655. Patient/family oriented to unit policies and routines.Report recieved from Milagros HAN.
[2022-10-27] MEDS: metFORMIN HCL 500 MG TABLET PO (17:15)
[2022-10-27] MEDS: FUROSEMIDE 40 MG TABLET PO (17:25)
[2022-10-27 17:35] LABS: Glucose Point of Care 268 mg/dl (65-105)
[2022-10-27 20:08] LABS: Glucose Point of Care 180 mg/dl (65-105)
[2022-10-28] VITALS (11 sets, daily range): BP systolic 123; BP diastolic 80; PULSE 67–88; RESP 16–18; TEMP 36.1; O2SAT 86–96
[2022-10-28] MEDS: IPRATROPIUM BR 0.02% INH SOLN 0.5 MG/2.5 ML VIAL INHALATION ×2 (02:45→09:02)
[2022-10-28] MEDS: LEVALBUTEROL NEB 1.25 MG/3 ML INHALATION ×2 (02:45→09:02)
[2022-10-28] MEDS: CENTRAL LINE FLUSH 20 ML IV PUSH (05:32)
[2022-10-28] MEDS: CENTRAL LINE FLUSH 10 ML IV PUSH (05:32)
[2022-10-28 05:49] LABS: Hemoglobin 14.8 g/dL (12.0-15.0); Mean Corpuscular HGB Conc 32.2 g/dl (32-36); Mean Corpuscular Hemoglobin 28.2 pg (26-34); Mean Corpuscular Volume 87.8 fl (80-100); Mean Platelet Volume 10.3 fl (7.4-10.4); Platelet Count Result 258 k/mm3 (150-375); Red Blood Count 5.24 M/mm3 (4.2-5.4); Red Cell Distribution Width 14.5 % (11.5-14.5); White Blood Count 16.9 K/mm3 (4.5-10.0)
[2022-10-28 05:58] LABS: Alanine Aminotransferase 30 U/L (6-35); Albumin Level 4.4 g/dL (3.5-5.1); Alkaline Phosphatase 95 U/L (38-126); Anion Gap 7 mmol/L (8-16); Aspartate Amino Transferase 26 U/L (14-36); Bilirubin,Total 1.4 mg/dL (0.2-1.3); Blood Urea Nitrogen 41 mg/dL (7-17); Calcium 9.3 mg/dL (8.4-10.2); Carbon Dioxide 35 mmol/L (22-30); Chloride 98 mmol/L (98-107); Estimated CRCL calculation 86 ml/min; Estimated Glomerular Filt Rate > 60; Glucose 164 mg/dL (65-110); Magnesium 2.4 mg/dL (1.6-2.3); Potassium 3.4 mmol/L (3.4-5.0); Sodium 140 mmol/L (137-145)
[2022-10-28 07:44] LABS: Glucose Point of Care 163 mg/dl (65-105)
[2022-10-28] MEDS: INSULIN GLARGINE (*BKC) 100 UNITS/ML 25 UNITS SUB-Q (08:28)
[2022-10-28] MEDS: ACETAMINOPHEN 325 MG TABLET 650 MG FEED TUBE (08:32)
[2022-10-28] MEDS: ATORVASTATIN 40 MG TABLET PO (08:33)
[2022-10-28] MEDS: ASPIRIN 81 MG CHEWABLE TABLET PO (08:33)
[2022-10-28] MEDS: MONTELUKAST SODIUM 10 MG TABLET PO (08:33)
[2022-10-28] MEDS: metFORMIN HCL 500 MG TABLET PO (08:34)
[2022-10-28] MEDS: FUROSEMIDE 40 MG TABLET PO (08:34)
[2022-10-28] MEDS: predniSONE 20 MG TABLET PO (08:34)
[2022-10-28] MEDS: DULoxetine HCL 60 MG CAPSULE.DR PO (08:34)
[2022-10-28] MEDS: POTASSIUM CHLORIDE 20 MEQ TABLET 40 MEQ PO (08:35)
[2022-10-28] MEDS: PANTOPRAZOLE 40 MG TABLET PO (08:35)
[2022-10-28] MEDS: ENOXAPARIN 40 MG/0.4 ML SYRINGE SUB-Q (08:36)
--- NOTE | 2022-10-28 09:00 | PC.NURSE ---
left message with pft to call back about pt needing more O2 tanks sent to her home. anticipating a call back. will call pft again if no call in the next few hours
--- NOTE | 2022-10-28 09:02 | PC.NURSE ---
pt stated she does not know how to check her glucose levels and also states she doesn't know normal ranges for blood glucose. called cable strander per md and left a message regarding pt education needs.
[2022-10-28] MEDS: FLUTICASONE/SALMETEROL 115-21 MCG INHALER 1 PUFF 2 PUFF INHALATION (09:05)
--- NOTE | 2022-10-28 11:27 | PC.NURSE ---
picc line removed at 1115. pt was told she had to be bedrest for 30 mins after picc line removal. pt stated she understood. LEAD BUSINESS SYSTEMS ANALYST found pt sitting up on side of the bed at 1125. pt was reminded by LEAD BUSINESS SYSTEMS ANALYST to stay in bed for the remainder of the 30 mins bedrest and pt laid back down. LEAD BUSINESS SYSTEMS ANALYST told nurse. Nurse went in to reeducate patient. pt was laying in bed when nurse came in. will closely monitor for the remainder of the 30 mins of bedrest
[2022-10-28 11:46] LABS: Glucose Point of Care 214 mg/dl (65-105)
[2022-10-28] MEDS: INSULIN ASPART (*BKC) 100 UNITS/ML SUB-Q (12:12)
--- NOTE | 2022-10-28 12:16 | HOMEO2EVAL ---
Evaluation was performed at [facility] Home Oxygen Evaluation RC: Home Oxygen (O2) Evaluation Start: 10/28/22 12:08 Freq: Status: Active Protocol: RPE Activity Type Activity Date Activity User E-sign Co-sign Detail Recorded Client Recorded Date Recorded By Document 10/28/22 11:40 NISHA [id number] 10/28/22 12:16 NISHA Document 10/28/22 11:45 NISHA [email or web address] 10/28/22 12:16 NISHA Document 10/28/22 11:50 NISHA [email or web address] 10/28/22 12:16 NISHA Document 10/28/22 12:00 NISHA [email or web address] 10/28/22 12:16 NISHA 10/28/22 10/28/22 10/28/22 11:40 11:45 11:50 Home O2 Evaluation [Oxygen] -Test Phase Resting Resting Exercise -Oxygen Delivery Room Air Nasal Cannula Nasal Cannula -Oxygen Flow Rate (L/min) 2 2 [Pulse Oximetry] -Pulse Oximetry (90-100 %) 86 L 92 91 [Pulse Rate] -Pulse Rate (60-100 beats/min) 72 88 [Comments] -Home Oxygen Evaluation Comments PT REQUIRES 2 L AT REST AND WITH ACTIVITY [Charges] -Treatment Charges O2 Evaluation - Inpatient 10/28/22 12:00 Home O2 Evaluation [Oxygen] -Test Phase Resting -Oxygen Delivery Nasal Cannula -Oxygen Flow Rate (L/min) 2 [Pulse Oximetry] -Pulse Oximetry (90-100 %) 94 [Pulse Rate] -Pulse Rate (60-100 beats/min) 79 [Comments] -Home Oxygen Evaluation Comments [Charges] -Treatment Charges
--- NOTE | 2022-10-28 12:16 | PCRCNOTE ---
HOME O2 EVAL DONE. 2 L REST AND ACTIVITY. PT HAS [facility] [employer] PHONE # [phone] PT STATES SHE HAS TANKS AT HOME BUT ONLY 1 FULL ONE, AND SHE HAS A CONCENTRATOR. I WILL CALL [facility] TO ENSURE THIS IS CORRECT INFO
--- NOTE | 2022-10-28 13:20 | PC.NURSE ---
As of 1319 no call back from certified breastfeeding educator. left a message for certified breastfeeding educator again. I asked for a call back stating the md will probably want to discharge and pt needs education.
--- NOTE | 2022-10-28 13:25 | PM.DS ---
DS: Admitting Diagnosis Discharge Date 10/28/22 Admitting Diagnosis Altered mental status DS: Discharge Diagnosis Discharge Diagnosis (1) Acute respiratory failure with hypoxia and hypercapnia: Code(s): J96.01 - Acute respiratory failure with hypoxia; J96.02 - Acute respiratory failure with hypercapnia Status: Acute (2) Pneumonia: Code(s): J18.9 - Pneumonia, unspecified organism Status: Acute (3) Acute exacerbation of congestive heart failure: Code(s): I50.9 - Heart failure, unspecified Status: Acute (4) Noncompliance: Code(s): Z91.19 - Patient's noncompliance with other medical treatment and regimen Status: Acute (5) Obstructive sleep apnea: Code(s): G47.33 - Obstructive sleep apnea (adult) (pediatric) Status: Acute (6) Diabetes mellitus: Code(s): E11.9 - Type 2 diabetes mellitus without complications Status: Acute (7) Essential hypertension: Code(s): I10 - Essential (primary) hypertension Status: Acute (8) Hyperlipidemia: Code(s): E78.5 - Hyperlipidemia, unspecified Status: Acute (9) Tobacco abuse: Code(s): Z72.0 - Tobacco use Status: Acute DS: Summary Hospital Course Reason for hospitalization: 51yo female with CHF, DM, obesity, untreated RAO, tobacco abuse and chronic respiratory failure (2-4L) here for altered mental status. She is noncompliant with treatment. Please see H&P for details. Hospital Course: Patient presented with acute shortness of breath and lethargy. CXR showing LLL airspace disease. CTA chest 10/21 showing bilateral LL airspace disease but no PE. ABGs revealed acute hypercapnic and hypoxic respiratory failure requiring?intubation on 10/19/22?upon admission, as she failed BiPAP due to restlessness and altered mental status. Acute respiratory failure with hypoxia and hypercapnia related to PNA, CHF, RAO complicated by noncompliance. Urine Legionella and urine pneumococcal antigen negative. SARS-CoV-2 PCR, RSV PCR and influenza A and B negative. She was started on Zosyn, vancomycin and azithromycin and completed a course of IV abx. BCx negative. MRSA nasal swab negative. UCx negative. Sputum Cx growing H.flu and MSSA. CXR showing pulmonary edema with BNP 320 on admission; she was treated with Lasix IV with clinical improvement and negative fluid balance. Vent management per intensivisit. Patient was able to be extubated on 10/26/22. She was up walking in the room. She was weaned to her chronic 2L O2. She was educated about the benefits of smoking cessation and of being compliant with treatment; specifically wearing her O2 2L at all times while awake and wearing her BiPAP at night and with naps. A1c 9.4. Patient was informed that she has diabetes. She has been told in the past that she has pre diabetes. Glucose was elevated due to steroids but this improved we wean steroids. She was started on metformin. Januvia was added. Home with meter. Nursing has instructed the patient on how to check her glucose. elementary educator consult as outpatient. She has O2 tanks and Oxymizer at home. Patient overall did well. She was able be discharged home on 10/28/2022. Status at Discharge Cognitive/behavioral status at discharge: stable Time Spent with Patient Time attestation: Total time spent providing and/or coordinating discharge services: 38 minutes Time spent: Greater than 30 minutes Exam Narrative: AF 97.0 123/80 79 16 94% 2L Gen - NARD Chest - distant, clear BS CV - RRR S1/S2. Abd - Soft, obese, NT Ext - no pedal edema Psych - nml mood and affect Skin - Warm and dry DS: Data Data Completed and Pending Labs on day of discharge: Labs from last 24 hours 10/28/22 10/28/22 10/28/22 11:41 07:39 05:40 WBC RBC Hgb Hct MCV MCH MCHC RDW Plt Count MPV Sodium 140 Potassium 3.4 Chloride 98 Carbon Dioxide 35 H Anion Gap
--- NOTE | 2022-10-28 13:27 | PCNFU ---
Addendum entered by Ana Cristina Siddiqui RD, LDN 10/28/22 13:53: 80% intake x 2 meals x 2 days Original Note: Nutrition Follow-Up Complete: Inadequate Oral Intake as related to mechanical ventilation as related to NPO. (Met, discontinue) (New) Altered nutrition related laboratory values related to diet noncompliance as evidenced by a HgbA1c of 9.4% on admission (10/22/22). Goal: meet estimated nutrition needs, blood sugar control Pt current nutrition is carbohydrate controlled/fluid restriction. Nutrition recommendations: Continue with current diet order. Will monitor need for addition of a cardiac diet. Patient had no questions regarding current diet. Last recorded weight is 116.573 kg. Weight stable x 1 day; up 4.6 kg x 9 days. Bowel Motility: BM: 10/27 Labs Reviewed: glucose: 164, BUN: 41 Meds Noted: Dulcolax, Colace, Lasix, Lantus, Novolog, Protonix, Miralax, Prednisone, Januvia, Glucophage Skin: No open areas documented Additional Notes: Patient states she is hungry. She denies nausea, vomiting, diarrhea, constipation and chewing/swallowing issues. Will monitor PO intake, weight status, labs
--- NOTE | 2022-10-28 14:10 | PCRCNOTE ---
CONTACTED KEYA FROM [facility]. HE STATED PATIENT WAS RECENTLY DELIVERED A POC FROM [facility] ON 07/26/22 AND SHE ALSO HAS PORTABLE TANKS AND HOME CONCENTRATOR UNIT. THIS EQUIPMENT IS BEING BILLED AND FAR HE KNOWS IS IN WORKING ORDER.
--- NOTE | 2022-10-28 14:53 | PC.NURSE ---
pt was given a glucometer, glucometer testing strips, and lancets by nurse. educated by nurse on use of glucometer, when to test glucose, and how to test glucose. nurse educated pt on importance of monitoring glucose levels and recording them.
--- NOTE | 2022-10-28 16:12 | PCCDE ---
Consult and phone message received today for diabetes education consult. Pt was discharged earlier today. Attempted to call pt but she did not answer and a voice mail was left to return the call. will be available per request.
== END 2022-10-28 15:10 | disposition home or self-care (01) | DRG 130 ==
LOC: ANHED 17:00 → ANHICU 23:35 → ANH3MEDSUR 10-27 16:56
PROVIDERS: Emergency Medicine; Internal Medicine; Admitting Provider Internal Medicine; Emergency Provider Emergency Medicine; PCP Family Medicine; Visit Provider Internal Medicine
DX: J18.9 Pneumonia, unspecified organism (principal); I27.20 Pulmonary hypertension, unspecified; E66.01 Morbid (severe) obesity due to excess calories; Z68.41 Body mass index [BMI] 40.0-44.9, adult; I11.0 Hypertensive heart disease with heart failure; I50.9 Heart failure, unspecified; J96.01 Acute respiratory failure with hypoxia; G47.33 Obstructive sleep apnea (adult) (pediatric); E11.9 Type 2 diabetes mellitus without complications; E78.5 Hyperlipidemia, unspecified; F17.210 Nicotine dependence, cigarettes, uncomplicated; J96.02 Acute respiratory failure with hypercapnia; K59.00 Constipation, unspecified; J44.0 Chronic obstructive pulmonary disease with (acute) lower respiratory infection; J44.1 Chronic obstructive pulmonary disease with (acute) exacerbation; Z20.822 Contact with and (suspected) exposure to COVID-19; Z79.899 Other long term (current) drug therapy; Z91.148 Patient's other noncompliance with medication regimen for other reason; Z79.82 Long term (current) use of aspirin
CPT/HCPCS: 31500; 36415; 36569; 36600; 71045; 71260; 80048; 80053; 80202; 81001; 82375; 82805; 82948; 83036; 83050; 83605; 83690; 83735; 83880; 84100; 84478; 84484; 85025; 85027; 85055; 85610; 85730; 87040; 87070; 87077; 87081; 87086; 87185; 87186; 87205; 87449; 87502; 87634; 87899; 93005; 93306; 94002; 94003; 94618; 94640; 97162; 97165; 99291; A9270; C1751; C9113; J0330; J0456; J1650; J1815; J1940; J2250; J2543; J2704; J2920; J2930; J3010; J3370; J7030; J7512; P9047; Q9967; U0003; U0005